=== PATIENT | female | born 1955 | race Caucasian/White ===

== ENCOUNTER → 2016-09-04 | Day surgery (SDC) | payer OTHER ==
[2016-08-27 07:48] VITALS: Ht 172.7 cm; Wt 68.2 kg
[~2016-09-04] VITALS: Ht 172.7 cm; Wt 68.2 kg
[~2016-09-04] MED LIST: 500ML BSS 0.3ML EPI 1:1000PF IRRIG ONE; ACETAMINOPHEN 325 MG TAB PO PRN; AMVISC PLUS 0.8ML SYRINGE INT OCU ONE; ATROPINE SULFATE 0.1 MG/ML 5ML SYR IV PRN; AcetaZOLAMIDE 250 MG TAB ONE; BETAXOLOL HCL 0.25% OP SUSP PER DROP CHARGE OPL SCH; BRIMONIDINE TART 0.2% OP SOLN PER DROP CHARGE ONE; BSS FLUSH ONE; CHOL20007 PO; DICL-201 PO; DICLOFENAC GEL TOP; EFF50 PO; ENDOCOAT 0.85ML SYRINGE INT OCU ONE; EpHEDrine SULFATE INJ 50 MG/ML AMP IV PRN; EpINEphrine INJ 1MG/ML AMP 1 MG/ML AMP ONE; FENTANYL CITRATE INJ 50 MCG/1 ML 2 ML VIAL IV PRN; FLUMAZENIL 0.1 MG/1 ML 10 ML VIAL IV PRN; HYDROmorphone INJ 2 MG/ML SYR/VIAL IV PRN; IBUP-1427 PO; LABETALOL HCL IV 5 MG/ML 20ML IV PRN; LACTATED RINGER'S 1000ML 500 ML IV SCH; LIDOCAINE 4% OP SOLN DROP CHARGE ONE; LIDOCAINE 4% OP SOLN DROP CHARGE OPL SCH; LIDOCAINE HCL 1% MPF 2 ML VIAL ONE; LUTE15CA PO; MEPERIDINE HCL 25 MG/ML CARP IV PRN; MIDAZOLAM HCL 1 MG/ML 2ML VIAL ONE; MIX: 4ML BSS 1ML EPI 1:1000 PF INSTIL ONE; MOXIFLOXACIN OPH SOLN PER DROP CHARGE ONE; MULTTAB58 PO; NALOXONE HCL 0.4 MG/1 ML VIAL/CARP IV PRN; OCUCOAT 1 ML SOLN IO ONE; ONDANSETRON INJ 2 MG/ML 2 ML VIAL IV PRN; OXYC-57 PO; PHENYLEPHRINE 100MCG/ML 5ML SYR IV PRN; POVIDONE-IODINE OP SOLN 30 ML BTL ONE; PRED1SUS3 OPL; PROPARACAINE 0.5% OP SOLN PER DROP CHARGE OPL SCH; RIZA10TA18 PO; TOBRAMYCIN/DEXAMETHASONE OPH OINT PER APPLN CHARGE ONE; VITAMIN B12 PO
--- NOTE | 2016-09-04 10:50 | History & Physical Bridge - [place] ---
H&P Re-Evaluation Bridge Note: I have examined the patient, reviewed the History & Physical and in the interval since the performance of the History & Physical I have noted the following changes of clinical significance: No changes noted
[2016-09-04] MEDS: PHENYLEPHRINE HCL 2.5% OP SOLN PER DROP CHARGE OPL SCH ×2 (11:02→11:07)
[2016-09-04] MEDS: TROPICAMIDE 1% OP SOLN PER DROP CHARGE OPL SCH ×2 (11:03→11:08)
[2016-09-04] MEDS: CYCLOPENTOLATE HCL 1% OP SOLN PER DROP CHARGE OPL SCH ×2 (11:04→11:09)
[2016-09-04] MEDS: MOXIFLOXACIN OPH SOLN PER DROP CHARGE OPL SCH ×2 (11:05→11:15)
--- NOTE | 2016-09-04 11:59 | Discharge Instructions-SurgCtr ---
Discharge Instructions Date of Service Sep 04, 2016. Visit Reason for Visit: Cataract Left Eye Discharge Discharge Diagnosis / Problem: lens implant left eye Discharge Goals Goal(s): Improve function Activity Recommendations Activity Limitations: resume your previous activity Lifting Limitations: no more than 10 pounds Exercise/Sports Limitations: gradually increase as tolerated May Resume Sexual Activity: when tolerated Shower/Bathe: tomorrow Driving or Machine Use: resume 1 day after discharge Anesthesia . Post Anesthesia Instructions: If you have had General Anesthesia or IV Sedation: * Do not drive today. * Resume driving when surgeon permits. * Do not make important decisions or sign legal documents today. * Call surgeon for: 1. Temperature elevations greater than 101 degrees F. 2. Uncontrollable pain. 3. Excessive bleeding. 4. Persistent nausea and vomiting. 5. Medication intolerance (nausea, vomiting or rash). * For nausea and vomiting use only clear liquids such as: tea, soda, bouillon until nausea subsides, then gradually increase diet as tolerated. * If you have any concerns or questions, call your surgeon's office. If physician is unavailable and it is an emergency, call 911 or go to the nearest emergency room. . Instructions / Follow-Up Instructions / Follow-Up ACTIVITY RECOMMENDATIONS: * Light activities. * Mild irritation and blurred vision are common for the first few days. * You may walk outside, read, watch television. * Redness around the white part of the eye is common. MEDICATIONS: Resume previous medications unless instructed otherwise by your surgeon. Start all eye drops at 3 pm today: * Eye drops (today and tomorrow): Prednisone - one drop in operative eye every 3 hours while awake Ofloxacin - one drop in operative eye every 3 hours while awake Ilevro - one drop in operative eye once a day SPECIAL CARE INSTRUCTIONS: * Tape plastic shield over eye to sleep at night. Call your doctor at with any concerns or problems. FOLLOW UP VISIT: Follow-up with Dr Pelletier at [place] office as scheduled. Diet Recommendations Home Diet: no limitations Procedures Procedures Performed: cataract extraction with lens implant Pending Studies Studies pending at discharge: no Medical Emergencies . Who to Call and When: Medical Emergencies: If at any time you feel your situation is an emergency, please call 911 immediately. . Non-Emergent Contact Non-Emergency issues call your: Patient Care Technician Instructor Call Non-Emergent contact if: your pain is not controlled [phone] . . "Provider Documentation" section prepared by Charly Pelletier.
--- NOTE | 2016-09-04 12:02 | [facility] Operative Report ---
Operative Report Date of Service Sep 04, 2016. Operative Report 1. PREOPERATIVE DIAGNOSIS: Pre Senile Posterior Subcapsular Cataract, left eye. 2. POSTOPERATIVE DIAGNOSIS: Pre Senile Posterior Subcapsular Cataract, left eye. 3. PROCEDURE: Phacoemulsification of left cataract with posterior chamber lens implant, type [employer]ausch [employer] Lomb, model MX60, power +17.5 diopters. ANESTHESIA: Local standby. SURGEON: Dr. Pelletier. COMPLICATIONS: None. OPERATING TIME: 10 minutes. 4. OPERATION AND FINDINGS: DESCRIPTION OF PROCEDURE: The left pupil was dilated. The anesthetic was administered using a topical technique. The left eye was prepped and draped. A speculum was placed. A clear corneal incision was formed. The chamber was filled with Amvisc Plus and Endocoat. Epinephrine solution was used. A paracentesis was placed. A capsulorrhexis was performed. The nucleus was hydrodissected. The lens was removed with phacoemulsification. Time was 3.80 seconds. The aspiration unit was used to remove the cortex. The capsule was filled with Amvisc Plus. The lens implant was folded and placed into the capsule. The incision was hydrated. The Amvisc was aspirated. The wound was secure. The chamber was deep. The pupil was round. Brimonidine, TobraDex ointment and Vigamox solution were placed. The speculum was removed. The patient was returned to the Recovery Room in stable condition. I attest to the content of the Intraoperative Record and any orders documented therein. Any exceptions are noted below. The scribe's documentation has been prepared in my presence, under my direction and personally reviewed by me in its entirety. I confirm that the note above accurately reflects all work, treatment, procedures, and medical decision making performed by me. I personally scribed for Charly Pelletier M.D. ([email or web address]) on 09/04/16 at 12:02. Electronically submitted by Grisel FISCHER).
[2016-09-04 12:03] VITALS: TEMP 36.5
--- NOTE | 2016-09-04 12:14 | Anesthesia Progress Nt - [facility] ---
Anesthesia Post Op Note Date & Time Sep 04, 2016 at 12:13 Vital Signs Pain Intensity: 0 Vital Signs Past 12 Hours Date Time Temp Pulse Resp B/P Pulse Ox O2 Delivery O2 Flow Rate FiO2 09/04/16 12:03 36.5 70 16 126/64 96 Room Air 09/04/16 10:56 37.0 80 18 126/79 96 Room Air Notes Mental Status: alert / awake / arousable, participated in evaluation Pt Amnestic to Procedure: Yes Nausea / Vomiting: adequately controlled Pain: adequately controlled Airway Patency, RR, SpO2: stable & adequate BP & HR: stable & adequate Hydration State: stable & adequate Anesthetic Complications: no major complications apparent
[2016-09-04 12:25] VITALS: BP 119/57; PULSE 74; O2SAT 98
== END | disposition home or self-care (01) ==
LOC: X.SURG 10:39
PROVIDERS: ATTEND Specialist
DX: H26.8 Other specified cataract (principal)

== ENCOUNTER → 2016-09-25 | Day surgery (SDC) | payer OTHER ==
[2016-09-24 07:34] VITALS: Ht 172.7 cm; Wt 68.2 kg
[~2016-09-25] VITALS: Ht 172.7 cm; Wt 68.2 kg
[~2016-09-25] MED LIST changes: -AcetaZOLAMIDE 250 MG TAB ONE; -BETAXOLOL HCL 0.25% OP SUSP PER DROP CHARGE OPL SCH; +BETAXOLOL HCL 0.25% OP SUSP PER DROP CHARGE OPR SCH; -ENDOCOAT 0.85ML SYRINGE INT OCU ONE; -FENTANYL CITRATE INJ 50 MCG/1 ML 2 ML VIAL IV PRN; +FENTANYL CITRATE INJ 50 MCG/1 ML 2 ML VIAL ONE; -FLUMAZENIL 0.1 MG/1 ML 10 ML VIAL IV PRN; -HYDROmorphone INJ 2 MG/ML SYR/VIAL IV PRN; -LABETALOL HCL IV 5 MG/ML 20ML IV PRN; -LIDOCAINE 4% OP SOLN DROP CHARGE OPL SCH; +LIDOCAINE 4% OP SOLN DROP CHARGE OPR SCH; -MEPERIDINE HCL 25 MG/ML CARP IV PRN; -NALOXONE HCL 0.4 MG/1 ML VIAL/CARP IV PRN; -ONDANSETRON INJ 2 MG/ML 2 ML VIAL IV PRN; -PHENYLEPHRINE 100MCG/ML 5ML SYR IV PRN; -PROPARACAINE 0.5% OP SOLN PER DROP CHARGE OPL SCH; +PROPARACAINE 0.5% OP SOLN PER DROP CHARGE OPR SCH; +VISCOAT 0.5ML SYRINGE INT OCU ONE
[2016-09-25] MEDS: PHENYLEPHRINE HCL 2.5% OP SOLN PER DROP CHARGE OPR SCH ×2 (06:32→06:38)
[2016-09-25] MEDS: TROPICAMIDE 1% OP SOLN PER DROP CHARGE OPR SCH ×2 (06:33→06:39)
[2016-09-25] MEDS: CYCLOPENTOLATE HCL 1% OP SOLN PER DROP CHARGE OPR SCH ×2 (06:34→06:40)
[2016-09-25] MEDS: MOXIFLOXACIN OPH SOLN PER DROP CHARGE OPR SCH ×2 (06:35→06:45)
--- NOTE | 2016-09-25 07:11 | Discharge Instructions-SurgCtr ---
Discharge Instructions Date of Service September 25, 2016. Visit Reason for Visit: Cataract Right Eye Discharge Discharge Diagnosis / Problem: lens implant right eye Discharge Goals Goal(s): Improve function Activity Recommendations Activity Limitations: resume your previous activity Lifting Limitations: no more than 10 pounds Exercise/Sports Limitations: gradually increase as tolerated May Resume Sexual Activity: when tolerated Shower/Bathe: tomorrow Driving or Machine Use: resume 1 day after discharge Anesthesia . Post Anesthesia Instructions: If you have had General Anesthesia or IV Sedation: * Do not drive today. * Resume driving when surgeon permits. * Do not make important decisions or sign legal documents today. * Call surgeon for: 1. Temperature elevations greater than 101 degrees F. 2. Uncontrollable pain. 3. Excessive bleeding. 4. Persistent nausea and vomiting. 5. Medication intolerance (nausea, vomiting or rash). * For nausea and vomiting use only clear liquids such as: tea, soda, bouillon until nausea subsides, then gradually increase diet as tolerated. * If you have any concerns or questions, call your surgeon's office. If physician is unavailable and it is an emergency, call 911 or go to the nearest emergency room. . Instructions / Follow-Up Instructions / Follow-Up ACTIVITY RECOMMENDATIONS: * Light activities. * Mild irritation and blurred vision are common for the first few days. * You may walk outside, read, watch television. * Redness around the white part of the eye is common. MEDICATIONS: Resume previous medications unless instructed otherwise by your surgeon. Start all eye drops at 1 pm today: * Eye drops (today and tomorrow): Prednisone - one drop in operative eye every 3 hours while awake Ofloxacin - one drop in operative eye every 3 hours while awake SPECIAL CARE INSTRUCTIONS: * Tape plastic shield over eye to sleep at night. Call your doctor at with any concerns or problems. FOLLOW UP VISIT: Follow-up with Dr Pelletier at [place] office as scheduled. Diet Recommendations Home Diet: no limitations Procedures Procedures Performed: Right Cataract Phacoemulsification With Intraocular Lens Implant Pending Studies Studies pending at discharge: no Medical Emergencies . Who to Call and When: Medical Emergencies: If at any time you feel your situation is an emergency, please call 911 immediately. . Non-Emergent Contact Non-Emergency issues call your: Guide Changer Call Non-Emergent contact if: your pain is not controlled [phone] . . "Provider Documentation" section prepared by Charly Pelletier. .
--- NOTE | 2016-09-25 07:13 | [facility] Operative Report ---
Operative Report Date of Service September 25, 2016. Operative Report 1. PREOPERATIVE DIAGNOSIS: Pre Senile nuclear cataract, right eye. 2. POSTOPERATIVE DIAGNOSIS: Pre Senile nuclear cataract, right eye. 3. PROCEDURE: Phacoemulsification of right cataract with posterior chamber lens implant, type Bausch [employer] Lomb, model MX60, power +17.5 diopters. ANESTHESIA: Local standby. SURGEON: Dr. Pelletier. COMPLICATIONS: None. OPERATING TIME: 10 minutes. 4. OPERATION AND FINDINGS: DESCRIPTION OF PROCEDURE: The right pupil was dilated. The anesthetic was administered using a topical technique. The right eye was prepped and draped. A speculum was placed. A clear corneal incision was formed. The chamber was filled with Amvisc Plus and Viscoat. Epinephrine solution was used. A paracentesis was placed. A capsulorrhexis was performed. The nucleus was hydrodissected. The lens was removed with phacoemulsification. Time was 2.06 seconds. The aspiration unit was used to remove the cortex. The capsule was filled with Amvisc Plus. The lens implant was folded and placed into the capsule. The incision was hydrated. The Amvisc was aspirated. The wound was secure. The chamber was deep. The pupil was round. Brimonidine, TobraDex ointment and Vigamox solution were placed. The speculum was removed. The patient was returned to the Recovery Room in stable condition. I attest to the content of the Intraoperative Record and any orders documented therein. Any exceptions are noted below. The scribe's documentation has been prepared in my presence, under my direction and personally reviewed by me in its entirety. I confirm that the note above accurately reflects all work, treatment, procedures, and medical decision making performed by me. I personally scribed for Charly Pelletier M.D. ([email or web address]) on 09/25/16 at 07:13. Electronically submitted by Grisel Marquez ([email or web address]).
[2016-09-25 07:15] VITALS: TEMP 37.7
[2016-09-25 07:40] VITALS: BP 125/78; PULSE 79; O2SAT 100
--- NOTE | 2016-09-25 07:40 | Anesthesia Progress Nt - [facility] ---
Anesthesia Post Op Note Date & Time September 25, 2016 at 07:40 Vital Signs Pain Intensity: 0 Vital Signs Past 12 Hours Date Time Temp Pulse Resp B/P Pulse Ox O2 Delivery O2 Flow Rate FiO2 09/25/16 07:15 37.7 75 12 125/79 100 Room Air 09/25/16 06:26 36.6 77 16 128/76 97 Room Air Notes Mental Status: alert / awake / arousable, participated in evaluation Pt Amnestic to Procedure: Yes Nausea / Vomiting: adequately controlled Pain: adequately controlled Airway Patency, RR, SpO2: stable & adequate BP & HR: stable & adequate Hydration State: stable & adequate Anesthetic Complications: no major complications apparent
== END | disposition home or self-care (01) ==
LOC: X.SURG 06:18
PROVIDERS: ATTEND Specialist
DX: H26.8 Other specified cataract (principal)

== ENCOUNTER → 2016-12-30 | Outpatient (CLI) | payer OTHER ==
[~2016-12-30] MED LIST changes: -500ML BSS 0.3ML EPI 1:1000PF IRRIG ONE; -ACETAMINOPHEN 325 MG TAB PO PRN; -AMVISC PLUS 0.8ML SYRINGE INT OCU ONE; -ATROPINE SULFATE 0.1 MG/ML 5ML SYR IV PRN; -BETAXOLOL HCL 0.25% OP SUSP PER DROP CHARGE OPR SCH; -BRIMONIDINE TART 0.2% OP SOLN PER DROP CHARGE ONE; -BSS FLUSH ONE; -EpHEDrine SULFATE INJ 50 MG/ML AMP IV PRN; -EpINEphrine INJ 1MG/ML AMP 1 MG/ML AMP ONE; -FENTANYL CITRATE INJ 50 MCG/1 ML 2 ML VIAL ONE; -LACTATED RINGER'S 1000ML 500 ML IV SCH; -LIDOCAINE 4% OP SOLN DROP CHARGE ONE; -LIDOCAINE 4% OP SOLN DROP CHARGE OPR SCH; -LIDOCAINE HCL 1% MPF 2 ML VIAL ONE; -MIDAZOLAM HCL 1 MG/ML 2ML VIAL ONE; -MIX: 4ML BSS 1ML EPI 1:1000 PF INSTIL ONE; -MOXIFLOXACIN OPH SOLN PER DROP CHARGE ONE; -OCUCOAT 1 ML SOLN IO ONE; -POVIDONE-IODINE OP SOLN 30 ML BTL ONE; -PRED1SUS3 OPL; -PROPARACAINE 0.5% OP SOLN PER DROP CHARGE OPR SCH; -TOBRAMYCIN/DEXAMETHASONE OPH OINT PER APPLN CHARGE ONE; -VISCOAT 0.5ML SYRINGE INT OCU ONE
[2016-12-30 18:37] LABS: BLOOD UREA NITROGEN 14 mg/dl (7-18); BUN/CREATININE RATIO 16.1 (10-20); CALCIUM 9.9 mg/dl (8.5-10.1); CARBON DIOXIDE 32 mmol/L (21-32); CHLORIDE 106 mmol/L (98-107); CREATININE 0.89 mg/dl (0.60-1.20); GLUCOSE 99 mg/dl (70-99); SODIUM 141 mmol/L (136-145)
== END | disposition home or self-care (01) ==
LOC: C.LABPVFM 16:14
PROVIDERS: ATTEND Obstetrics & Gynecology
DX: E87.5 Hyperkalemia (principal)

== ENCOUNTER → 2017-01-02 | Outpatient (CLI) | payer OTHER ==
[2017-01-02 17:18] LABS: RHEUMATOID FACTOR < 10.0 U/mL (0-15); TOTAL IRON BINDING CAPACITY 348 mcg/dl (250-450)
--- NOTE | 2017-01-02 17:27 | DIAGNOSTIC IMAGING REPORT ---
RIGHT HAND MIN 3 VIEWS ROUTINE CLINICAL HISTORY: Right hand pain. Tenosynovitis. COMPARISON: None. DISCUSSION: There is mild periarticular osteopenia. No acute fractures are visualized. There are no erosive changes. There is sclerosis involving the distal phalanx of the fourth finger. The patient appears be status post a trapezium resection. IMPRESSION: 1. Apparent postsurgical changes of a trapezium resection 2. Mild degenerative spurring at the base the first metacarpal 3. No acute fractures 4. No erosive disease 5. Mild periarticular osteopenia Electronically signed by: Raymundo Augustin M.D. 01/02/2017 5:26 PM Dictated Date/Time: 01/02/2017 5:24 PM
--- NOTE | 2017-01-02 17:28 | DIAGNOSTIC IMAGING REPORT ---
LEFT HAND MIN 3 VIEWS ROUTINE CLINICAL HISTORY: Tenosynovitis. Left hand pain COMPARISON: None. DISCUSSION: There is mild particular osteopenia. No acute fractures are visualized. There is no erosive disease. There are degenerative changes most pronounced the level the first carpal metacarpal joint. Degenerative changes are also present within the distal radial ulnar joint. IMPRESSION: 1. No acute fractures 2. No erosive disease 3. Degenerative changes within the first carpometacarpal joint, and distal radioulnar joint. Electronically signed by: Raymundo Augustin M.D. 01/02/2017 5:27 PM Dictated Date/Time: 01/02/2017 5:26 PM
[2017-01-02 17:40] LABS: URINE APPEARANCE CLEAR (CLEAR); URINE BILIRUBIN NEG (NEG); URINE EPITHELIAL CELL AUTO 0-5 /lpf (0-5); URINE NITRITE NEG (NEG); URINE PH 5.5 (4.5-7.5); URINE SPECIFIC GRAVITY 1.014 (1.000-1.030); UROBILINOGEN NEG (NEG)
[2017-01-02 17:42] LABS: MANUAL MICROSCOPIC REQUIRED? NO; REVIEW REQ? NO; URINE COLOR N
--- NOTE | 2017-01-02 18:28 | DIAGNOSTIC IMAGING REPORT ---
SI JOINTS 3 OR MORE VIEWS CLINICAL HISTORY: ARTHRAIGIA OF BACK COMPARISON STUDY: No previous studies for comparison. FINDINGS: There is no evidence of SI joint fusion. There are no erosive changes to indicate an inflammatory sacroiliitis. There are mild degenerative type changes. No fractures are visualized. IMPRESSION: Mild degenerative change. No conventional radiographic evidence of an inflammatory sacroiliitis Electronically signed by: Raymundo Augustin M.D. 01/02/2017 6:26 PM Dictated Date/Time: 01/02/2017 5:22 PM
[2017-01-08 04:51] LABS: ANTI-CENTROMERE AB <1.0 NEG AI (<1.0 NEG); ANTI-SS-A <1.0 NEG AI (<1.0 NEG); ANTI-SS-B <1.0 NEG AI (<1.0 NEG); DNA ds CRITHIDIA NEGATIVE (NEGATIVE); HLA-B27** TC 528X NEGATIVE (NEGATIVE); PARVOVIRUS IgG INDEX 5.2 (<0.9); PARVOVIRUS IgM INDEX 0.2 (<0.9); Sm Antibody <1.0 NEG AI (<1.0 NEG)
== END | disposition home or self-care (01) ==
LOC: C.RAD1850 15:58
PROVIDERS: ATTEND Internal Medicine Rheumatology
DX: M54.9 Dorsalgia, unspecified (principal); M65.9 Synovitis and tenosynovitis, unspecified; M66.9 Spontaneous rupture of unspecified tendon

== ENCOUNTER 2017-01-10 05:22 | Observation (INO) | payer OTHER ==
[2016-12-26 15:25] VITALS: BMI 23.0
[2016-12-26 15:50] LABS: BASO % 0.4 %; BASO ABS # 0.02 K/uL (0-0.2); COMPLETE YES; EOS % 3.3 %; HEMATOCRIT 41.5 % (37-47); LYMPH % 39.1 %; MEAN PLATELET VOLUME 9.9 fL (7.4-10.4); NEUT % 50.2 %; PLATELET COUNT 227 K/uL (130-400); RED BLOOD COUNT 4.28 M/uL (4.2-5.4); WHITE BLOOD COUNT 5.12 K/uL (4.8-10.8)
--- NOTE | 2016-12-26 15:52 | PAT Medication Instructions ---
Service Date Dec 26, 2016. Current Home Medication List Cholecalciferol (Vitamin D3), 1 TAB PO QAM Diclofenac (Voltaren), 75 MG PO BID PRN for Pain Ibuprofen Tab (Motrin), 600 MG PO Q6H PRN for Pain Lutein-Zeaxanthin (Lutein), 1 CAP PO QAM Multiple Vitamin (Multivitamin), 1 TAB PO QAM Rizatriptan Benzoate (Maxalt), 10 MG PO PRN Venlafaxine Hcl (Effexor *), 75 MG PO QAM [Diclofenac Gel ], 1 APPLN TOP UD PRN for JOINT PAIN [Vitamin B12], 1 TAB PO QAM Medication Instructions For Your Scheduled Surgery - Check with surgeon for instructions: Diclofenac (Voltaren), 75 MG PO BID PRN for Pain Ibuprofen Tab (Motrin), 600 MG PO Q6H PRN for Pain - Hold the following medications 24 hours prior to surgery: [Diclofenac Gel ], 1 APPLN TOP UD PRN for JOINT PAIN - Hold the following medications the morning of surgery: [Vitamin B12], 1 TAB PO QAM Multiple Vitamin (Multivitamin), 1 TAB PO QAM Cholecalciferol (Vitamin D3), 1 TAB PO QAM Lutein-Zeaxanthin (Lutein), 1 CAP PO QAM - Take the following medications the morning of surgery with a sip of water: Venlafaxine Hcl (Effexor *), 75 MG PO QAM Rizatriptan Benzoate (Maxalt), 10 MG PO PRN (if needed) - Take the following medications as scheduled the night before surgery: Rizatriptan Benzoate (Maxalt), 10 MG PO PRN (if needed) If you have any questions please call us at [phone] or [phone] or [phone]
[2016-12-26 15:58] LABS: BUN/CREATININE RATIO 12.6 (10-20); CALCIUM 9.7 mg/dl (8.5-10.1); CREATININE 0.93 mg/dl (0.60-1.20); POTASSIUM 5.4 mmol/L (3.5-5.1)
[2017-01-10] VITALS (8 sets, daily range): BP systolic 118–169; BP diastolic 57–74; PULSE 67–92; TEMP 36.4–36.7; O2SAT 88–100; Ht 172.7 cm; Wt 68.1 kg
[~2017-01-10] VITALS: Ht 172.7 cm; Wt 68.1 kg
[~2017-01-10 05:22] MED LIST changes: -OXYC-57 PO
[2017-01-10] MEDS ORDERED: CEFAZOLIN 2000 MG/60 ML D5W IV SCH (06:00)
[2017-01-10] MEDS ORDERED: LACTATED RINGER'S 1000ML 1,000 ML IV SCH ×3 (06:00→09:37)
[2017-01-10] MEDS ORDERED: METHYLENE BLUE 0.5% 10 ML VIAL ONE (06:55)
[2017-01-10] MEDS ORDERED: BUPIVACAINE 0.5 % 5 MG/1 ML MPF 30ML VIAL ONE (06:55)
[2017-01-10] MEDS ORDERED: ONDANSETRON INJ 2 MG/ML 2 ML VIAL ONE (07:03)
[2017-01-10] MEDS ORDERED: ROCURONIUM BROMIDE 10 MG/ML 5 ML VIAL ONE (07:03)
[2017-01-10] MEDS ORDERED: LIDOCAINE HCL 2% 2 ML VIAL (20MG/ML) ONE (07:03)
[2017-01-10] MEDS ORDERED: PROPOFOL IV EMULSION 10 MG/ML 20 ML VIAL IV ONE (07:03)
[2017-01-10] MEDS ORDERED: NEOSTIGMINE METHYLSULFATE 5 MG/5 ML SYR ONE (07:03)
[2017-01-10] MEDS ORDERED: MIDAZOLAM HCL 1 MG/ML 2ML VIAL ONE (07:03)
[2017-01-10] MEDS ORDERED: GLYCOPYRROLATE INJ 0.2 MG/ML VIAL ONE (07:03)
[2017-01-10] MEDS ORDERED: FENTANYL CITRATE INJ 50 MCG/1 ML 2 ML VIAL ONE (07:03)
[2017-01-10] MEDS ORDERED: DEXAMETHASONE SOD INJ 4 MG/ML VIAL ONE (07:03)
[2017-01-10] MEDS ORDERED: PHENYLEPHRINE 100MCG/ML 5ML SYR IV PRN (07:30)
[2017-01-10] MEDS ORDERED: EpHEDrine SULFATE INJ 50 MG/ML AMP IV PRN (07:30)
[2017-01-10] MEDS ORDERED: ATROPINE SULFATE 0.1 MG/ML 5ML SYR IV PRN (07:30)
[2017-01-10] MEDS ORDERED: ONDANSETRON INJ 2 MG/ML 2 ML VIAL IV PRN ×2 (07:30→09:45)
[2017-01-10] MEDS ORDERED: HYDROmorphone INJ 2 MG/ML SYR/VIAL ONE (08:08)
[2017-01-10] MEDS ORDERED: SURGICEL ABSORB HEMOSTAT 2IN X 14IN TOP ONE (08:55)
[2017-01-10] MEDS: HYDROmorphone INJ 2 MG/ML SYR/VIAL IV PRN ×4 (09:38→10:02)
[2017-01-10] MEDS ORDERED: SIMETHICONE 80 MG CHEW PO PRN (09:45)
[2017-01-10] MEDS ORDERED: ACETAMINOPHEN 325 MG TAB PO PRN (09:45)
[2017-01-10] MEDS ORDERED: KETOROLAC TROMETHAMINE 30 MG/ML VIAL IV. PRN (09:45)
[2017-01-10] MEDS ORDERED: IBUPROFEN 600 MG TAB PO PRN (09:45)
[2017-01-10] MEDS ORDERED: OXYCODONE/ACETAMINOPHEN 5-325 TAB PO PRN ×2 (09:45)
--- NOTE | 2017-01-10 09:48 | [facility] Post Operative Brief Note ---
Immediate Operative Summary Operative Date Jan 10, 2017. Pre-Operative Diagnosis Postmenopausal bleeding, bilateral ovarian cysts, cervical stenosis Post-Operative Diagnosis Same as preop Procedure(s) Performed Total Laparoscopic Hysterectomy Bilateral Salpingoophrectomy, Robot Assist; Cystoscopy Surgeon Dr. Hughes [employer] Consultant Surgeon(s) RN Estimated Blood Loss 25 ml Findings uterus small, evidence of bowel adhesions, mostly epiplocae , left ovary adhesed to this area slightly, right ovary normal and mobile. alot of peritoneal adhesions in cul[place]. nl liver edge, gb Fluids (cc crystalloids) 1000 Specimens A. Uterus, Cervix, Bilaterial ovaries and fallopian tubes. Drains carmona Anesthesia general Complication(s) None Disposition Recovery Room / PACU
[2017-01-10] MEDS ORDERED: OXYC-57 PO (09:59)
--- NOTE | 2017-01-10 10:01 | Discharge Instructions ---
Discharge Instructions Date of Service Jan 10, 2017. Admission Reason for Admission: Bilateral Ovarian Cysts, Post-Menopausal Bleeding Discharge Discharge Diagnosis / Problem: after surgery Discharge Goals Goal(s): Routine recovery after surgery Activity Recommendations Activity Limitations: as noted below . Instructions / Follow-Up Instructions / Follow-Up POST OPERATIVE: BOWEL FUNCTION/MEDICATIONS: 1. Constipation pain and discomfort are the most common complaints 5-7 days after surgery. Points 2-6 address the things that can help. 2. Chewing gum can help stimulate the gut and help improve digestion and motility. 3. Milk of Magnesia 1-2 times per day until return of bowel function. 4. Colace is a stool softener that helps. Taking this 2-3 times per day until bowel function returns to normal is highly recommended. 5. Dulcolax is a laxative that may be used if several days have passed without a bowel movement. Alternatively Miralax may be used daily instead. 6. Drink plenty of fluids as this will also reduce constipation. 7. Narcotic pain medications will be prescribed by your physician. They are safe to use and we encourage you to use them. If you are not allergic, ibuprofen will also be prescribed. Many patients will be able to transition off of the narcotic medications to ibuprofen by postoperative day 3. ACTIVITY RECOMMENDATIONS: 1. Get plenty of rest and listen to your body. If you are tired, take a nap. 2. You may shower, but do not take a tub bath until you see your doctor at the 2 week post operative visit. 3. Absolutely NO intercourse and nothing in the vagina until you are examined by your doctor at the 8 week visit. At that visit it will be determined when such activities can be resumed. This can range from 6-12 weeks after your surgery depending on healing time. 4. The main physical activity in the first week should be walking. By the second week you can slowly increase activity. There are no limits on walking up and down stairs. 5. Do not lift more than 5-10 lbs for 4 weeks. Remember the "one-handed rule", i.e. if you can lift something with only one hand it's likely okay. 6. Minimize computer engineer like vacuuming and exercising for 4 weeks. "Overdoing it" can lead to incisions not healing, pain and vaginal bleeding , so again, listen to your body. 7. Driving can be resumed when you feel able. Do not drive within 24 hours of taking a narcotic medication. EXPECTATIONS: 1. Vaginal spotting, bleeding and discharge are common after surgery. There may even be an odor to the discharge which is often related to sutures used in the vagina. If you experience heavy vaginal bleeding, call the office number day or night [phone]. 2. Bladder discomfort is common after surgery from the catheter. This usually resolves in 1-2 weeks. 3. By the end of the 3rd or 4th week you should be feeling much better. It may take up to 6 weeks for your energy levels to return to normal. 4. Narcotic medications have side effects such as: dizziness, headache, nausea and/or vomiting. If you suspect your pain medication is causing problems, call our office and we may be able to prescribe an alternate medication. 5. The skin incisions are often covered with a liquid bandage. This will gradually peel off over time. CALL THE OFFICE IF YOU HAVE ANY OF THE FOLLOWIN. Temperature of 101 degrees or higher. 2. Severe abdominal or pelvic pain not relieved by pain medication. 3. Persistent nausea or vomiting. 4. Increased pain with urination or difficulty urinating. 5. Bright red bleeding that soaks more than 1 pad per hour. CONTACT PHONE NUMBERS: Main Office: [phone] Surgical Nurse: [phone] extension [phone] FOLLOW-UP: Post-Operative Appointments: * Individual instructions will have been given about the timing of your first examination, but this is usually at the end of the second week home. * You will need to call the office at soon after discharge to make the appointment for your post-op check-up if it has not already been scheduled. * Additional information regarding activity, sexual intercourse and when to return to work will be given at this appointment. WE WISH YOU A SPEEDY RECOVERY! Current Hospital Diet Patient's current hospital diet: Discharge Diet Recommended Diet: Regular Diet Procedures Procedures Performed: Total Laparoscopic Hysterectomy Bilateral Salpingoophrectomy, Robot Assist; Cystoscopy Pending Studies Studies pending at discharge: yes List of pending studies: pathology Medical Emergencies . Who to Call and When: Medical Emergencies: If at any time you feel your situation is an emergency, please call 911 immediately. . Non-Emergent Contact Non-Emergency issues call your: Optometric Aide . . "Provider Documentation" section prepared by Inocencia Hughes. . VTE Core Measure Inpt VTE Proph given/why not?: Treatment not indicated [place] Drug Monitoring Program Search Results: patient reviewed within database, no issues identified
--- NOTE | 2017-01-10 10:24 | Anesthesiology Progress Note ---
Anesthesia Post Op Note Date & Time Jan 10, 2017 at 10:22 Vital Signs Pain Intensity: 3 Vital Signs Past 12 Hours Date Time Temp Pulse Resp B/P (MAP) Pulse Ox O2 Delivery O2 Flow Rate FiO2 01/10/17 10:20 133/40 01/10/17 10:16 60 10 98 01/10/17 10:16 61 10 01/10/17 10:15 131/63 01/10/17 10:13 36.7 69 16 131/63 (76) 98 Nasal Cannula 2 Mask 01/10/17 10:11 78 14 98 01/10/17 10:11 78 14 01/10/17 10:06 81 20 01/10/17 10:06 81 20 98 01/10/17 10:05 137/59 01/10/17 10:03 76 16 01/10/17 10:03 80 16 99 01/10/17 10:00 145/74 01/10/17 09:58 69 8 98 01/10/17 09:58 69 8 01/10/17 09:56 125/93 01/10/17 09:53 58 10 98 01/10/17 09:53 58 10 01/10/17 09:51 102/92 01/10/17 09:48 61 8 01/10/17 09:48 60 8 100 01/10/17 09:47 69 12 99 01/10/17 09:47 69 12 01/10/17 09:45 156/63 01/10/17 09:42 63 13 01/10/17 09:42 63 13 100 01/10/17 09:41 146/80 01/10/17 09:37 60 13 01/10/17 09:37 60 13 100 01/10/17 09:35 147/81 01/10/17 09:32 82 17 01/10/17 09:32 82 17 100 01/10/17 09:31 152/95 01/10/17 09:27 9 01/10/17 09:27 83 9 167/90 01/10/17 09:27 36.6 81 14 167/90 100 Mask 10 01/10/17 05:44 36.7 79 18 141/57 (85) 99 Room Air Notes Mental Status: alert / awake / arousable, participated in evaluation Pt Amnestic to Procedure: Yes Nausea / Vomiting: adequately controlled Pain: adequately controlled Airway Patency, RR, SpO2: stable & adequate BP & HR: stable & adequate Hydration State: stable & adequate Anesthetic Complications: no major complications apparent The patient was a difficult glidescope intubation due to very anteriorly placed vocal cords. A difficult airway form was filled out and given to the patient for future surgeries.
--- NOTE | 2017-01-10 10:34 | OPERATIVE REPORT ---
DATE OF OPERATION: 01/10/2017 PREOPERATIVE DIAGNOSES: 1. Bilateral ovarian cysts. 2. Postmenopausal bleeding. 3. Cervical stenosis. POSTOPERATIVE DIAGNOSES: 1. same 2. Pelvic peritoneal adhesions. PROCEDURES: 1. Total laparoscopic hysterectomy. 2. Lysis of adhesions. 3. Bilateral salpingo-oophorectomy. 4. Cystoscopy. 5. Robotic assistance. SURGEON: Dr. Inocencia Hughes. PHYSICIAN COMPENSATION ANALYST: RN. IV FLUIDS: 1000 mL. ESTIMATED BLOOD LOSS: 25 mL. URINE OUTPUT: 200 mL. ANESTHESIA: General. FINDINGS: Uterus small. Cervix was stenotic. VCare cup did perforate at the fundus. This still allowed for uterine manipulation. The right ovary mobile and normal appearing. Left ovary adhesed in the lower left pelvis along with epiploica to the uterosacral ligament. Epiploica adhesed to the ovary on that side. A peritoneal window noted in the cul-de-sac. Normal liver edge and gallbladder. Cystoscopy findings with normal bladder filling and normal evidence of ureteral jets. No sutures in the bladder. INDICATIONS: A 61-year-old with a history of persistent bilateral ovarian cysts that varied in their appearance as well as their size over the course of a year of following. She also ended up complaining of postmenopausal bleeding; however, her cervix was stenotic and could not allow for evaluation of the cavity in the office setting. Given all of this, the patient was uncomfortable with remaining undiagnosed issues in her pelvis and desired definitive hysterectomy with bilateral salpingo-oophorectomy. She was aware of her alternatives and desired to proceed. DESCRIPTION OF PROCEDURE: The patient was taken to the operating room and identified. After adequate general anesthesia was obtained, she was placed in dorsal lithotomy position and prepped and draped in the usual sterile fashion. Attention was turned to the patient's vagina, where a Gonzalez catheter was placed under sterile conditions. A weighted speculum and anterior retractor were placed to visualize the cervix, which was grasped in its anterior lip at first and then on its posterior lip as the cervix was quite anterior. The cervix was sequentially dilated using Hegar dilators to 23. Single interrupted stitch of #0 Vicryl was placed at 3 o'clock position. The VCare uterine manipulator was gently placed through the cervical os into the uterine cavity and the balloon was inflated; however, some concern was for possible perforation. The cup was tied down and stabilized in the usual fashion and the instruments removed vaginally. Attention was turned to the patient's abdomen, where an infraumbilical skin incision was made with a scalpel. The Veress needle was placed intraperitoneally with an opening pressure of 3 mmHg. A CO2 pneumoperitoneum was created. The patient was placed in steep Trendelenburg. The pelvis was inspected with the findings as noted above. The VCare cup clearly had perforated, but it was at the fundus. There was no evidence of any other injury in the pelvis. Two da Leo trocar sites left and right of the midline were created by first creating skin incisions and then placing under direct visualization da Leo trocars. A left upper quadrant health center assistant port was created in a similar fashion and an 11- mm trocar was placed there. This was after the 12-mm trocar had been introduced optically and a 10-mm laparoscope with camera had been placed. At this point, all the instruments were removed and da Leo was brought to the patient's bedside. Appropriate instrument arms were attached to the appropriate trocars. The camera was introduced and the bipolar cautery as well as monopolar cristine were brought through the instrument arm #2 and #1 respectively and the surgeon went to the console. The ureters were seen coursing well away from the planned operative field. The adhesions of the sigmoid epiploica and the ovary to that area were addressed at first. This required sharp and blunt dissection with care to not injure the bowel. Once the tissue was completely mobilized away from the planned operative sites, the ovary was completely mobilized from adhesions as well. Attention was turned to the patient's right infundibulopelvic ligament. That was cauterized in multiple passes and then transected. The round ligament was then cauterized and transected. The broad ligament attachments of the this complex were further cauterized and transected. The anterior and posterior leaves of the broad ligament were opened up into. The bladder flap was begun from the right heading towards the midline. The uterine artery pedicle was skeletonized on this side. The pedicle was then cauterized. Attention was then turned to the left infundibulopelvic ligament, which was cauterized and transected. The round ligament was also cauterized and transected and the remaining tissue of this complex was further cauterized and transected. The broad ligament leaves were opened up on this side. The bladder flap was begun from the left and met to the right. The bladder was reflected well away from the planned operative site anteriorly. Uterine artery pedicle on the left side was skeletonized. It was then cauterized and transected. The cardinal ligament attachments were further taken down. This allowed for complete mobilization of the planned colpotomy site on the left side. Attention was returned to the right uterine artery pedicles, which were recauterized and transected and the cardinal ligament attachments were cauterized and transected. All tissue was cleared away from the planned colpotomy site and it was then incised in a circumferential fashion following the VCare cup using the monopolar cristine. The specimen was completely transected and brought out vaginally. A sponge was replaced to allow for maintenance of the pneumoperitoneum. Through the #1 instrument arm, a large needle regional driver was placed. A 2-0 V-Loc 90 suture was introduced through the health center assistant port. The cuff was then closed in the usual fashion using the suture material and back stitches were placed in the usual fashion. There was concern about administrating methylene blue given the patient's medication history and therefore, cystoscopy took place and the bladder was well visualized and normal. It filled normally and urine was seen coursing from the ureteral orifices easily. At this point, the cystoscopy was terminated. A new Gonzalez catheter was placed. The CO2 pneumoperitoneum that had been let down was redistended. The operative sites were inspected. Small oozing was cauterized; however, due to the raw edges, a piece of Surgicel was placed across the vaginal cuff and the suture lines. At this point, the procedure was terminated. All trocars were removed. The CO2 gas had been allowed to escape from the patient's abdomen. The fascia at the umbilicus was reapproximated with a single interrupted suture of 0 Vicryl. The skin incisions were all closed with 4-0 Vicryl in a subcuticular fashion. Marcaine had been injected at the incision sites. They were also dressed with Dermabond. The patient was returned to supine position. She was awoken from anesthesia and transferred to the recovery room in stable condition. All sponge, lap and needle counts were correct x2. I attest to the content of the Intraoperative Record and any orders documented therein. Any exceptions are noted below. DILMA
[2017-01-10] MEDS ORDERED: IV FLUIDS COMPLETED PRN (11:30)
[2017-01-10] MEDS ORDERED: DOCUSATE SODIUM 100 MG CAP PO SCH (21:00)
--- NOTE | 2017-01-15 10:55 | Discharge Summary ---
Discharge Summary Date of Service Dec. Discharged Jan 10, 2017 Discharge Summary Admission diagnoses: persistent bilateral ovarian cysts, postmenopausal bleeding , cervical stenosis. Discharge diagnoses: same, pelvic peritoneal adhesions Procedures: Total Laparoscopic Hysterectomy, Bilateral Salpingoophectomy, Lysis of adhesions, Robotic assistance, Cystoscopy. Brief History and Hospital Course: 61yo admitted for history of persistent bilateral ovarian cysts that had been followed for >6m who desires surgical management. She also had postmenopausal bleeding and could not have office endometrial biopsy due to cervical stenosis. She desired surgical management. She underwent the above stated procedures without incident. She had an estimated blood less of 25cc. Her postoperative recovery was uncomplicated and later that day she was tolerating a diet, voiding and ambulating with pain well controlled on oral medications. She was discharged to home. She was give pain medicine prescription and discharge instructions. She was to followup in office in 2 weeks.
== END 2017-01-10 16:00 | disposition home or self-care (01) ==
LOC: C.ACU 05:22 → C.MS4N 05:30 → ENRESERV 10:04
PROVIDERS: ADMIT Obstetrics & Gynecology; ATTEND Obstetrics & Gynecology
DX: D28.2 Benign neoplasm of uterine tubes and ligaments (principal); D27.0 Benign neoplasm of right ovary; N83.201 Unspecified ovarian cyst, right side; N83.202 Unspecified ovarian cyst, left side; N95.0 Postmenopausal bleeding; N88.2 Stricture and stenosis of cervix uteri
CPT/HCPCS: 58571; 58740; S2900

== ENCOUNTER → 2017-03-06 | Outpatient (CLI) | payer OTHER ==
[~2017-03-06] MED LIST changes: +OXYC-57 PO
[2017-03-06 15:50] LABS: MANUAL MICROSCOPIC REQUIRED? NO; REVIEW REQ? NO; URINE APPEARANCE CLEAR (CLEAR); URINE BILIRUBIN NEG (NEG); URINE COLOR YELLOW; URINE NITRITE NEG (NEG); URINE SPECIFIC GRAVITY 1.018 (1.000-1.030); UROBILINOGEN NEG (NEG)
== END | disposition home or self-care (01) ==
LOC: C.LABSPEC 15:18
PROVIDERS: ATTEND Obstetrics & Gynecology
DX: R39.9 Unspecified symptoms and signs involving the genitourinary system (principal)

== ENCOUNTER → 2017-08-27 | Outpatient (CLI) | payer OTHER ==
[2017-08-27 16:29] LABS: BASO % 0.4 %; BASO ABS # 0.02 K/uL (0-0.2); EOS % 3.2 %; EOS ABS # 0.17 K/uL (0-0.5); HEMOGLOBIN 13.3 g/dL (12.0-16.0); LYMPH % 33.3 %; LYMPH ABS # 1.78 K/uL (1.2-3.4); MEAN CELL VOLUME 96.4 fL (80-100); MEAN CORPUSCULAR HGB CONC 33.3 g/dl (32-36); MEAN PLATELET VOLUME 10.2 fL (7.4-10.4); MONO % 7.1 %; MONO ABS # 0.38 K/uL (0.11-0.59); NEUT ABS # 2.99 K/uL (1.4-6.5); PLATELET COUNT 223 K/uL (130-400); RED CELL DISTRIBUTION WIDTH SD 45.5 fL (36.4-46.3); WHITE BLOOD COUNT 5.34 K/uL (4.8-10.8)
[2017-08-27 16:57] LABS: ALBUMIN 4.1 gm/dl (3.4-5.0); ALT/SGPT 40 U/L (12-78); AST/SGOT 25 U/L (15-37); CREATININE 0.76 mg/dl (0.60-1.20)
[2017-08-27 16:59] LABS: ALKALINE PHOSPHATASE 85 U/L (45-117); TOTAL PROTEIN 7.3 gm/dl (6.4-8.2)
== END | disposition home or self-care (01) ==
LOC: C.LAB1850 15:29
PROVIDERS: ATTEND Internal Medicine Rheumatology
DX: Z79.899 Other long term (current) drug therapy (principal)

== ENCOUNTER 2021-10-22 13:47 | Observation (INO) ==
[2021-10-22] MEDS ORDERED: ASPIRIN CHEW 324 MG PO STA (14:08)
[2021-10-22] MEDS ORDERED: METOPROLOL TARTRATE 1 MG/ML VIAL IV STA (14:08)
[2021-10-22] MEDS ORDERED: HEPARIN SOD (PORCINE) 1000 UNIT/ML ONE (14:09)
[2021-10-22] MEDS ORDERED: METOPROLOL TARTRATE 1 MG/ML VIAL IV ONE (14:10)
[2021-10-22] MEDS ORDERED: TICAGRELOR 90 MG TAB ONE (14:10)
--- NOTE | 2021-10-22 14:12 | Emergency Department Note ---
Impression & Plan ST elevation NC (STEMI), Chest pain ED Provider Note NAME: ASHLEY BHANDARI AGE: 66 SEX: F : 1955 ARRIVES VIA: Walk-In INFORMANT: Patient ED PROVIDER(S): Josh Short DO CHIEF COMPLAINT: chest pain HPI: Patient is a 66-year-old female with past medical history of thyroid disorder, anaplasmosis who presents to the ER from chest pain. This started and was exertional while she was cleaning up in the yard. She describes the pain as starting in her left arm and jaw pain. She does have shortness of breath with it. It has been improving. Currently a 4 out of 10. She is never had this before. She denies any headache or change in vision. No belly pain nausea vomiting or diarrhea. No dysuria urgency or frequency. No other exacerbating or remitting factors. ROS: See above HPI for pertinent positives & negatives. A total of 10 systems reviewed and were otherwise negative. PAST MEDICAL HISTORY:See Below PAST SURGICAL HISTORY:See Below FAMILY HISTORY:See Below SOCIAL HISTORY:See Below HOME MEDICATIONS:See Below ALLERGIES:See Below VITALS:See Below PHYSICAL EXAMINATION: GENERAL: Sitting up in bed, alert, slightly diaphoretic, mild distress EYE EXAM: normal conjunctiva. PERRL and EOM's grossly intact. OROPHARYNX: no exudate, no erythema, lips, buccal mucosa, and tongue normal and mucous membranes are moist NECK: supple, no nuchal rigidity, no adenopathy, non-tender LUNGS: Clear to auscultation. Normal chest wall mechanics HEART: no murmurs, S1 normal and S2 normal ABDOMEN: abdomen soft, non-tender, normo-active bowel sounds, no masses, no rebound or guarding. UPPER EXTREMITIES: upper extremities are grossly normal. LOWER EXTREMITIES: No pitting edema. NEURO EXAM: Normal sensorium, cranial nerves II-XII grossly intact, normal speech, no gross weakness of arms, no gross weakness of legs. MEDICAL DECISION MAKING: Patient is a 66-year-old female who presents the ER for left upper chest wall pain arm pain and jaw pain. She does have some shortness of breath associated with this. This occurred with exertion. IV was established blood work was obtained. EKG was reviewed and showed a STEMI. A STEMI alert was immediately called. Patient was given aspirin, nitro and Lopressor as her heart rate was up to the 90s. Interventional cardiology presented to bedside and took the patient emergently to the Audio Production Instructor. Patient was also given 4000 units of heparin as well while in the ER prior to transfer to Audio Production Instructor. Labs which resulted later showed no significant leukocytosis or anemia. BMP all along with LFTs were unremarkable with exception of slightly elevated blood sugar at 112. Troponin was elevated at 360. Triage Nursing notes reviewed. Limited review of prior medical records performed Vital Signs: reviewed and remarkable for HTN and tachy Differential diagnosis: Differential diagnoses includes but is not limited to acute coronary syndrome, myocardial infarction, pericarditis, pulmonary embolus, aortic dissection, pneumonia, pneumothorax, musculoskeletal, shingles, esophageal. ER treatment provided: See below Diagnostics interpreted by me: ECG: Sinus rhythm rate of [address] elevations in the inferior leads as well as V4 through V6 with ST depressions and T wave inversion in V1 as well as aVL and aVR. Cardiac Monitoring: An order was placed for continuous cardiac monitoring. The monitor shows a rate of 80 with sinus rhythm. Laboratory studies: As stated above and show below. Imaging studies: Portable AP upright 1 view of the chest shows no focal infiltrate or pneumothorax Consultation(s): Interventional cardiology was consulted and patient was taken emergently to the OR Procedures: none Critical Care: I have personally spent 33 minutes of critical care time in the direct management of this patient. This includes bedside care, interpretation of diagnostic studies, and testing, discussion with consultants, patient, and family members, and other required patient management activities. This 33 minutes is in excess of all separately billable procedures. Past Med/Surg History Medical History Abdominal pain Anxiety Bilateral ovarian cysts Enteritis H/O thyroid cyst Postmenopausal bleeding Thyroid nodule Wrist pain, left Surgical History H/O bilateral breast implants H/O dilation and curettage H/O sinus surgery History of bilateral mastectomy History of eye surgery History of fusion of cervical spine History of gynecologic surgery History of gynecologic surgery History of hand surgery History of hysterectomy History of knee surgery History of LAVH History of removal of cyst S/P endometrial ablation S/P tonsillectomy S/P tooth extraction Family History Grandfather (Maternal) Myocardial infarction Mother Lung cancer Denies family history of Ovarian cancer Prostate cancer Breast cancer Colorectal cancer Social History (Updated 09/24/21 @ 09:51 by Crystal Puckett LPN) Smoking Status: Never smoker Second Hand Exposure: No; Hx Alcohol Use: Yes Alcohol type: beer Hx Substance Use: No Preferred Language: Telugu Communication Ability: Effective Hearing Ability: Hard of Hearing Fish Cleaner Machine Tender Required: No Beliefs That Will Affect Care: None marital status: Current Living Situation: Spouse current occupational status: employed 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 How many Children do You have: 1 Other Information That Helps Us Care for You: No Feels Safe at Home: Yes Safety Concerns: Feels Safe At This Time Childhood Exposure to Second-Hand Smoke: Yes caffeine: Yes Dental Care, Regularly: Yes Physical Activity Frequency: Daily Seatbelt Use: always Sunscreen Use: Yes Assistive Devices: None Allergies Allergies Allergy/AdvReac Type Severity Reaction Status Date / Time Penicillins Allergy Unknown PT NOT Verified 10/22/21 14:50 SURE, THINKS RASH Sulfa (Sulfonamide Allergy Unknown PT NOT Verified 10/22/21 14:50 Antibiotics) SURE, THINKS RASH Home Meds Home Medications Medication Instructions Recorded Confirmed mesalamine 800 mg tablet,delayed 1,600 mg PO DAILY 10/22/21 10/22/21 release omega 3-dha and epa 476 mg-fish 1 cap PO DAILY 10/22/21 10/22/21 oil 800 mg capsule (MegaRed Advanced 6x Absorption) Previous Rx's Medication Instructions Recorded venlafaxine 75 mg capsule,extended 75 mg PO DAILY #90 cap 04/26/21 release 24 hr diclofenac sodium 75 mg 75 mg PO BID PRN #180 tab 05/21/21 tablet,delayed release rizatriptan 10 mg disintegrating 10 mg PO Q2H PRN #30 tab 09/11/21 tablet (Maxalt-RADIO TIME BUYER) venlafaxine 37.5 mg 37.5 mg PO DAILY #30 cap 09/24/21 capsule,extended release 24 hr (Effexor XR) Results & Data (ED) Vital Signs Vital Signs - 24 hr 10/22/21 13:50 10/22/21 13:53 10/22/21 14:09 Temperature 36.3 C L 36.4 C L Temperature Source Oral Oral Pulse Rate 76 Pulse Rate [Right Finger] 87 Pulse Rhythm Regular Pulse Rhythm [Right Finger] Regular Pulse Strength Normal Pulse Strength [Right Finger] Normal Respiratory Rate 18 20 20 Respiratory Effort / Characteristics Non-Labored Spontaneous Non-Labored Respiratory Depth Normal Normal Respiratory Pattern Regular Regular Blood Pressure 165/81 H Blood Pressure [Right Arm] 112/75 163/97 H Blood Pressure Mean 109 Blood Pressure Mean [Right Arm] 87 119 Blood Pressure Position [Right Arm] Lying Pulse Oximetry 95 99 93 Oxygen Delivery Method Room Air Room Air Room Air Sepsis New/Unexplained Change in Mental Status N/A Sepsis Action Taken by Nursing No Action Required 10/22/21 14:15 10/22/21 14:22 10/22/21 14:36 Temperature Temperature Source Pulse Rate 90 69 Pulse Rate [Right Finger] Pulse Rhythm Pulse Rhythm [Right Finger] Pulse Strength Pulse Strength [Right Finger] Respiratory Rate Respiratory Effort / Characteristics Respiratory Depth Respiratory Pattern Blood Pressure 163/97 H Blood Pressure [Right Arm] 172/96 H Blood Pressure Mean Blood Pressure Mean [Right Arm] 121 Blood Pressure Position [Right Arm] Pulse Oximetry 98 Oxygen Delivery Method Room Air Sepsis New/Unexplained Change in Mental Status Sepsis Action Taken by Nursing 10/22/21 15:46 10/22/21 15:50 Temperature 36.4 C L Temperature Source Oral Pulse Rate 70 Pulse Rate [Right Finger] 87 Pulse Rhythm Pulse Rhythm [Right Finger] Regular Pulse Strength Pulse Strength [Right Finger] Normal Respiratory Rate 16 Respiratory Effort / Characteristics Non-Labored Spontaneous Respiratory Depth Normal Respiratory Pattern Blood Pressure Blood Pressure [Right Arm] 112/75 Blood Pressure Mean Blood Pressure Mean [Right Arm] 87 Blood Pressure Position [Right Arm] Semi-fowlers Pulse Oximetry 95 Oxygen Delivery Method Room Air Sepsis New/Unexplained Change in Mental Status Sepsis Action Taken by Nursing Laboratory Data Result diagrams: 10/22/21 14:13 10/22/21 14:13 Lab Results 10/22/21 10/22/21 10/22/21 Range/Units 12:30 14:13 14:13 WBC 6.85 (4.8-10.8) K/uL RBC 4.28 (4.2-5.4) M/uL Hgb 13.8 (12.0-16.0) g/dL Hct 41.2 (37-47) % MCV 96.3 (80-100) fL MCH 32.2 (25-34) pg MCHC 33.5 (32-36) g/dL RDW Std Deviation 45.9 (36.4-46.3) fL RDW Coeff of Inderjit 13.2 (11.5-14.5) % Plt Count 266 (130-400) K/uL MPV 10.1 (7.4-10.4) fL Immature Gran % (Auto) 0.3 % Neut % (Auto) 65.4 % Lymph % (Auto) 23.5 % [place] % (Auto) 7.9 % Eos % (Auto) 2.6 % Baso % (Auto) 0.3 % Neut # (Auto) 4.48 (1.4-6.5) K/uL Lymph # (Auto) 1.61 (1.2-3.4) K/uL [place] # (Auto) 0.54 (0.11-0.59) K/uL Eos # (Auto) 0.18 (0-0.5) K/uL Baso # (Auto) 0.02 (0-0.2) K/uL Immature Gran # (Auto) 0.02 (0.00-0.02) K/uL Sodium (136-145) mmol/L Potassium (3.5-5.1) mmol/L Chloride (98-107) mmol/L Carbon Dioxide (21-32) mmol/L Anion Gap (3-11) BUN (6-23) mg/dl Creatinine (0.6-1.2) mg/dl Est Cr Clr Drug Dosing ml/min Est GFR ( Amer) ml/min Est GFR (Non-Af Amer) ml/min BUN/Creatinine Ratio (10-20) Glucose (70-99(Fasting)) mg/dl Calcium (8.5-10.1) mg/dl Total Bilirubin (0.2-1.0) mg/dl AST (13-39) U/L ALT (7-52) U/L Alkaline Phosphatase (34-104) U/L Troponin I High Sens 360.4 H* (0-14) pg/ml Total Protein (6.0-8.3) gm/dl Albumin (3.4-5.0) gm/dl Globulin (2.5-4.0) gm/dl Albumin/Globulin Ratio (0.9-2) Lipase (11-82) U/L SARS-CoV-2, RNA, NAAT NEGATIVE (NEGATIVE) 10/22/21 Range/Units 14:13 WBC (4.8-10.8) K/uL RBC (4.2-5.4) M/uL Hgb (12.0-16.0) g/dL Hct (37-47) % MCV (80-100) fL MCH (25-34) pg MCHC (32-36) g/dL RDW Std Deviation (36.4-46.3) fL RDW Coeff of Inderjit (11.5-14.5) % Plt Count (130-400) K/uL MPV (7.4-10.4) fL Immature Gran % (Auto) % Neut % (Auto) % Lymph % (Auto) % [place] % (Auto) % Eos % (Auto) % Baso % (Auto) % Neut # (Auto) (1.4-6.5) K/uL Lymph # (Auto) (1.2-3.4) K/uL [place] # (Auto) (0.11-0.59) K/uL Eos # (Auto) (0-0.5) K/uL Baso # (Auto) (0-0.2) K/uL Immature Gran # (Auto) (0.00-0.02) K/uL Sodium 141 (136-145) mmol/L Potassium 3.7 (3.5-5.1) mmol/L Chloride 106 (98-107) mmol/L Carbon Dioxide 26 (21-32) mmol/L Anion Gap 9 (3-11) BUN 16 (6-23) mg/dl Creatinine 0.91 (0.6-1.2) mg/dl Est Cr Clr Drug Dosing 62.2 ml/min Est GFR ( Amer) 76.7 ml/min Est GFR (Non-Af Amer) 66.2 ml/min BUN/Creatinine Ratio 17.6 (10-20) Glucose 112 H (70-99(Fasting)) mg/dl Calcium 9.6 (8.5-10.1) mg/dl Total Bilirubin 1.0 (0.2-1.0) mg/dl AST 17 (13-39) U/L ALT 13 (7-52) U/L Alkaline Phosphatase 77 (34-104) U/L Troponin I High Sens (0-14) pg/ml Total Protein 7.1 (6.0-8.3) gm/dl Albumin 4.6 (3.4-5.0) gm/dl Globulin 2.5 (2.5-4.0) gm/dl Albumin/Globulin Ratio 1.8 (0.9-2) Lipase 16 (11-82) U/L SARS-CoV-2, RNA, NAAT (NEGATIVE) Administered Medications Sodium Chloride (Nss) 500 mls @ 80 mls/hr IV .Q6H15M [facility] Stop: 10/22/21 22:59 Last Admin: 10/22/21 17:08 Dose: 80 mls/hr Documented by: [id number] Lisinopril (Lisinopril 2.5 Mg Tab) 2.5 mg PO QAM [facility] Stop: 11/21/21 16:29 Last Admin: 10/22/21 17:08 Dose: Not Given Documented by: [id number] Discontinued Medications Aspirin (Aspirin Chew 324 Mg) 324 mg PO NOW [facility] Stop: 10/22/21 14:09 Last Admin: 10/22/21 14:15 Dose: 324 mg Documented by: [id number] Eptifibatide (Eptifibatide 2 Mg/Ml 10 Ml Vial (Audio Production Instructor Use Only)) Confirm Administered Dose 40 mg IV .STK-MED ONE Stop: 10/22/21 14:48 Last Admin: 10/22/21 15:23 Dose: Not Given Documented by: [id number] Eptifibatide (Eptifibatide 0.75 Mg/Ml 75mg Vial (Audio Production Instructor Use Only)) Confirm Administered Dose 75 mg .ROUTE .STK-MED ONE Stop: 10/22/21 14:48 Last Admin: 10/22/21 15:23 Dose: Not Given Documented by: [id number] Fentanyl Citrate (Fentanyl Citrate 100 Mcg/2 Ml Vial) Confirm Administered Dose 100 mcg .ROUTE .STK-MED ONE Stop: 10/22/21 14:30 Last Admin: 10/22/21 15:22 Dose: 50 mcg Documented by: [id number] Heparin Sodium (Porcine) (Heparin Sod (Porcine) 1000 Unit/Ml) Confirm Administered Dose 1,000 units .ROUTE .STK-MED ONE Stop: 10/22/21 14:10 Last Admin: 10/22/21 15:20 Dose: 7,000 units Documented by: [id number] Cosigned by: [id number] Heparin Sodium (Porcine) (Heparin (Porcine) 1000 Unit/Ml 10 Ml (Audio Production Instructor Use Only)) Confirm Administered Dose 10,000 units .ROUTE .STK-MED ONE Stop: 10/22/21 14:30 Last Admin: 10/22/21 16:13 Dose: Not Given Documented by: [id number] Heparin Sodium/Sodium Chloride (Heparin In Nss Infusion 1000 Unit/500 Ml (2 U/Ml) Bag) Confirm Administered Dose 3,000 units IV .[facility] ONE Stop: 10/22/21 14:30 Last Admin: 10/22/21 15:22 Dose: 3,000 units Documented by: [id number] Metoprolol Tartrate (Metoprolol Tartrate 1 Mg/Ml Vial) Confirm Administered Dose 5 mg IV .[facility] Stop: 10/22/21 14:11 Last Admin: 10/22/21 14:29 Dose: Not Given Documented by: [id number] Metoprolol Tartrate (Metoprolol Tartrate 25 Mg Tab) [facility] Stop: 11/21/21 15:59 Last Admin: 10/22/21 18:28 Dose: Not Given Documented by: [id number] Midazolam HCl (Midazolam Hcl 1 Mg/Ml 2ml Vial) Confirm Administered Dose 2 mg . ROUTE .[facility]-MED ONE Stop: 10/22/21 14:29 Last Admin: 10/22/21 15:22 Dose: 1 mg Documented by: [id number] Nicardipine HCl (Nicardipine Hcl Inj 2.5 Mg/Ml 10 Ml Amp) Confirm Administered Dose 25 mg .ROUTE .[employer] ONE Stop: 10/22/21 14:30 Last Admin: 10/22/21 15:22 Dose: 25 mg Documented by: [id number] Nitroglycerin (Nitroglycerin Sl 0.4 Mg/Tab Tab) Confirm Administered Dose 0.4 mg .ROUTE .[employer]-MED ONE Stop: 10/22/21 14:26 Last Admin: 10/22/21 14:29 Dose: 0.4 mg Documented by: [id number] Nitroglycerin/Dextrose (Nitroglycerin/D5w 100mcg/Ml 20ml Syr) Confirm Administered Dose 2,000 mcg .ROUTE .[employer] ONE Stop: 10/22/21 14:30 Last Admin: 10/22/21 15:23 Dose: 2,000 mcg Documented by: [id number] Ticagrelor (Ticagrelor 90 Mg Tab) Confirm Administered Dose 180 mg .ROUTE .STK- MED ONE Stop: 10/22/21 14:11 Last Admin: 10/22/21 15:22 Dose: Not Given Documented by: [id number] Imaging Data Radiologist's Impression: Chest X-Ray 10/22/21 14:08 XR chest 1V portable CLINICAL HISTORY: Atypical chest pain TECHNIQUE: Single frontal radiograph of the chest was obtained. Comparison: Comparison is made to chest radiograph 11/20/2015 FINDINGS: No lines and tubes are seen. Calcified aortic knob is seen. The lungs are clear. Bilateral chest wall surgical clips are seen. IMPRESSION: No acute chest disease. ACT 112: Negative or not required by law. Electronically signed by: Danie Gamez M.D. 10/22/2021 3:09 PM Discharge Plan Visit Data Chief Complaint: Cardiac Assessment Stated Complaint: L CHEST PAIN, L ARM NUMB, NECK PAIN ED Provider: Josh Short Discharge Problem: ST elevation NC (STEMI), Chest pain Patient Disposition: Admitted As Inpatient Discharge Instructions Interventions: ED Discharge Assessment Last Done: 10/22/21 14:46 Discharge Problem: ST elevation NC (STEMI) Qualifiers: Involved coronary artery: unspecified coronary artery Qualified Code(s): I21.3 - ST elevation (STEMI) myocardial infarction of unspecified site Chest pain Qualifiers: Chest pain type: unspecified Qualified Code(s): R07.9 - Chest pain, unspecified
[2021-10-22] MEDS ORDERED: NITROGLYCERIN SL 0.4 MG/TAB TAB ONE (14:25)
[2021-10-22 14:28] LABS: Basophils # (auto) 0.02 K/uL (0-0.2); Basophils % (auto) 0.3 %; Eosinophils # (auto) 0.18 K/uL (0-0.5); Eosinophils % (auto) 2.6 %; Hematocrit (blood only) 41.2 % (37-47); Hemoglobin 13.8 g/dL (12.0-16.0); Immature Granulocytes # (auto) 0.02 K/uL (0.00-0.02); Immature Granulocytes % (auto) 0.3 %; Lymphocytes # (auto) 1.61 K/uL (1.2-3.4); Lymphocytes % (auto) 23.5 %; Mean Corpuscular Hemoglobin 32.2 pg (25-34); Mean Corpuscular Hgb Conc 33.5 g/dL (32-36); Mean Corpuscular Volume 96.3 fL (80-100); Mean Platelet Volume 10.1 fL (7.4-10.4); Monocytes # (auto) 0.54 K/uL (0.11-0.59); Monocytes % (auto) 7.9 %; Neutrophils # (auto) 4.48 K/uL (1.4-6.5); Neutrophils % (auto) 65.4 %; Platelet Count 266 K/uL (130-400); RDW Coefficient of Variation 13.2 % (11.5-14.5); RDW Standard Deviation 45.9 fL (36.4-46.3); Red Blood Count 4.28 M/uL (4.2-5.4); White Blood Count 6.85 K/uL (4.8-10.8)
[2021-10-22] MEDS ORDERED: MIDAZOLAM HCL 1 MG/ML 2ML VIAL ONE (14:28)
[2021-10-22] MEDS ORDERED: NITROGLYCERIN/D5W 100MCG/ML 20ML SYR ONE (14:29)
[2021-10-22] MEDS ORDERED: fentaNYL citrate 100 MCG/2 ML VIAL ONE (14:29)
[2021-10-22] MEDS ORDERED: niCARdipine HCL INJ 2.5 MG/ML 10 ML AMP ONE (14:29)
[2021-10-22] MEDS ORDERED: HEPARIN (PORCINE) 1000 UNIT/ML 10 ML (CATH LAB USE ONLY) ONE (14:29)
[2021-10-22] MEDS ORDERED: EPTIFIBATIDE 2 MG/ML 10 ML VIAL (CATH LAB USE ONLY) IV ONE (14:47)
[2021-10-22] MEDS ORDERED: EPTIFIBATIDE 0.75 MG/ML 75MG VIAL (CATH LAB USE ONLY) ONE (14:47)
[2021-10-22 14:53] LABS: Albumin Globulin Ratio 1.8 (0.9-2); Albumin Level 4.6 gm/dl (3.4-5.0); BUN Creatinine Ratio 17.6 (10-20); Calcium 9.6 mg/dl (8.5-10.1); Creatinine Clr Calc Pharmacy 62.2 ml/min; Est GFR (African American) 76.7 ml/min; Est GFR (Non-African American) 66.2 ml/min; Globulin 2.5 gm/dl (2.5-4.0); Potassium 3.7 mmol/L (3.5-5.1); Total Protein 7.1 gm/dl (6.0-8.3)
--- NOTE | 2021-10-22 15:10 | XRay Report ---
XR chest 1V portable CLINICAL HISTORY: Atypical chest pain TECHNIQUE: Single frontal radiograph of the chest was obtained. Comparison: Comparison is made to chest radiograph 11/20/2015 FINDINGS: No lines and tubes are seen. Calcified aortic knob is seen. The lungs are clear. Bilateral chest wall surgical clips are seen. IMPRESSION: No acute chest disease. ACT 112: Negative or not required by law. Electronically signed by: Danie Gamez M.D. 10/22/2021 3:09 PM
--- NOTE | 2021-10-22 15:30 | Post Anesthesia Assessment ---
Date of Service October 22, 2021 Post Sedation Assessment Vital Signs Temp Pulse Resp BP BP Pulse Ox 10/22/21 14:36 69 98 10/22/21 14:22 172/96 H 10/22/21 14:15 90 163/97 H 10/22/21 14:09 20 163/97 H 93 10/22/21 13:53 36.4 C L 76 20 165/81 H 99 Recovery Score Activity: Moves 4 extremities Discharge Sedation Level of Care: Phase I Post Sedation Plan On clinical assessment, the patient appears to have tolerated the sedation without complications. Patient is recovering as anticipated. Patient will continue to be monitored by nursing and may be discharged when sedation discharge criteria are met per below protocol. Upon Completions of procedure up to 15 minutes continue every 5 minute vital signs and the P.A.R. score; then discharge to a Phase I or Fast Track to Phase II per the following guidelines: * Discharge Patient to appropriate Phase II area if PAR is 8 or greater or return to pre- procedure baseline. The post - procedure orders will be as directed. * If PAR score is less than 8 or not return to pre-procedure baseline then patient will follow Phase I monitoring till PAR is reached for Phase II. The Phase I may be done in procedure room or may call to secure a Phase I area. * If naloxone or flumazenil are used for reversal, hold in Phase I for cont inued monitoring from when last reversal dose was given for a minimum of 60 minutes or longer pending the nurse and/or physician discretion of patient condition before discharge to Phase II. Please call the Sedation Physician to re-evaluate and complete post-note for discharge to Phase II area. Do NOT discharge from procedure sedation or Phase 1 until post- sedation evaluation note is complete by procedure /sedation MD Sedation Discharge Instructions to be given to the patient at discharge to home.
--- NOTE | 2021-10-22 15:30 | Pre Anesthesia Assessment ---
Date of Service October 22, 2021 Pre Sedation Assessment Vital Signs Temp Pulse Resp BP BP Pulse Ox 10/22/21 14:36 69 98 10/22/21 14:22 172/96 H 10/22/21 14:15 90 163/97 H 10/22/21 14:09 20 163/97 H 93 10/22/21 13:53 36.4 C L 76 20 165/81 H 99 Cardiovascular RRR, no murmur, no edema Respiratory normal respiratory effort, lungs clear to auscultation Pre-Sedation Airway Assessment Smoking Status: Never smoker Hx Sleep Apnea: No Hx Difficult Intubation: No Short, Thick Neck: No Mallampati Class: II ASA: ASA3 Notes The planned sedation has been discussed with the patient. Informed Consent was obtained. I have identified the patient, determined the appropriateness of sedation and have assessed the patient immediately prior to the procedure. All medicine(s) and interventions are by my order.
[2021-10-22] MEDS ORDERED: ACETAMINOPHEN 325 MG TAB PO PRN (15:46)
[2021-10-22] MEDS ORDERED: NITROGLYCERIN SL 0.4 MG/TAB TAB SL PRN (15:46)
--- NOTE | 2021-10-22 15:46 | Cardiac Catheterization ---
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 Cardiac Status Clinical evaluation leading to the procedure CAD Presenation: STEMI Anginal Classification: CCS III Heart Failure: No Cardiogenic Shock within 24 Hours: No Cardiac Arrest within 24 Hours: No Imaging Studies Past 6 Months: No Stress Studies Past 6 Months: No Standard Exercise Test: No Stress Echocardiogram: No Stress Testing w/SPECT MPI: No Cardiac CTA: No STEMI OR Non-STEMI Symptom Onset Date: 10/22/21 Symptom Onset Time: 14:00 Thrombolytics: No Coronary Anatomy Dominant: Right Left Main (% Stenosis): Normal LAD (% Stenosis): Normal D1 (% Stenosis): Normal D2 (% Stenosis): Normal D3 (% Stenosis): Normal Circumflex (% Stenosis): Normal OM1 (% Stenosis): Normal OM2 (% Stenosis): Normal OM3 (% Stenosis): Normal L PL1 (% Stenosis): Normal L PL2 (% Stenosis): Normal L PDA (% Stenosis): Normal RCA (% Stenosis): Normal R PDA (% Stenosis): Normal R PL1 (% Stenosis): Normal R PL2 (% Stenosis): Normal AM (% Stenosis): Normal Left Ventricular Angiography EF (%): 30 Wall Motion: Anterior and Apical Mitral Regurgitation: 1+ Aortography Aortic Regurgitation: None Diagnostic Physicians Name: Von Fabian MD Status: Emergency Closure Device Percutaneous Entry Location: Radial Closure Device: Radial Band Recommendations: Medical Therapy and/or Counseling (Lifestyle modifications, may consider betablocker) First Noted: First EKG Intraprocedure Events Significant Disection: No Perforation: No Cardiac Cath Procedure Full Procedure Date October 22, 2021 Pre-Procedure Diagnosis Pre-Procedure Diagnosis: Acute Coronary Syndrome AUC Score AUC Score: 9 Post-Procedure Diagnosis Post-Procedure Diagnosis: Normal Coronary Arteries, Decreased LV Systolic Function (Stress-related (Takotsubo) Cardiomyopathy) and Elevated Intracardiac Pressures Procedure(s) Performed Procedure(s) Performed: Coronary Angiography, Left Heart Cath and Ultrasound Guided Vascular Access Class A Regional Truck Driver Von Fabian MD Estimated Blood Loss Estimated Blood Loss: Minimal Medication(s) Medication(s): Nicardipine Summary of Findings Hamel time out was performed in standard fashion. Access was obtained with Seldinger technique. A Jackson catheter was advanced over an 0.035" J-wire and positioned into the Left coronary cusp. Angiography was obtained in orthogonal projections. The catheter was redirected to the Right Coronary ostium and angiography was obtained in orthogonal projections. A pigtail catheter was advanced into the Left Ventricle and EDP was measured. A power injection was obtained in TIDWELL projection. Findings: - Normal Coronary arteries - Elevated LVEDP 23 mmHg - Depressed LVEF 30-35% with alexsandra-apical akinesis suggestive of Takotsubo Cardiomyopathy Hemodynamics Rest Ao:: 134/69/126 mmHg Final Ao: 142/74/105 LV: 144/23 Recommendations Recommendations: Medical Therapy and/or Counseling (Lifestyle modifications, may consider betablocker) Specimens Specimens: None Radiation Exposure (mGy) 276 mGy; Fluorotime: 5.1 minutes; DAP 29.22 cGycm2 Contrast (mls) 100 Fluids (cc crystalloids) Fluids (cc crystalloids): 75 Anesthesia 1 mg Versed, 50 mcg Fentanyl Disposition PCU I attest to the content of the Intraoperative Record and any orders documented therein. Any exceptions are noted below. [facility] Card Cath Procedure Codes Cardiac Catheterization Procedure 1: Cardiovascular Cath Procedures: 46162 Left Heart Cath (+/-LV) Moderate Sedation Procedure 1: Sedation/Anesthesia: 68452 Mod Sedation by the same physician; Ea [id number] Minutes PG Care Time/CCT Total # of Minutes Spent Total Time Spent: 50 Total Time Spent with Patient: Total time spent is greater than 50% in coordination of care (as documented) at patient's floor/unit and/or counseling patient: Prolonged Care Time Prolonged Care Time: No
[2021-10-22] MEDS ORDERED: METOPROLOL TARTRATE 25 MG TAB PO SCH (16:00)
[2021-10-22] MEDS ORDERED: MoRPHine SULFATE 2 MG/ML CARP IV PRN (16:01)
[2021-10-22] MEDS ORDERED: ALUMINUM/MAGNESIUM SUSP 30 ML UDC PO PRN (16:01)
[2021-10-22] MEDS ORDERED: ONDANSETRON INJ 2 MG/ML 2 ML VIAL IV PRN (16:01)
[2021-10-22] MEDS ORDERED: lisinopril 5 MG TAB PO SCH (16:30)
--- NOTE | 2021-10-22 16:38 | History & Physical Report ---
Date of Service October 22, 2021 Assessment & Plan (1) Stress-induced cardiomyopathy: Plan: Patient came in as a heart alert look to have ST elevation Personal Service Representative shows nonocclusive coronary disease no left ventricular outflow tract obstruction described but diagnosis of Takotsubo's is considered. Ejection fraction in the Personal Service Representative was estimated at 30 to 35% pending echocardiogram. Etiology elected to start aspirin and atorvastatin. Fasting lipid panel will be in the morning, lipids earlier this month and an LDL of 82 and an HDL of 83 Patient is to be initiated on metoprolol this evening if blood pressure permits and lisinopril tomorrow. Consult Geraldine with heart failure clinic with undertaken. (2) Ulcerative colitis: Plan: Patient had no additional ulcerative colitis symptoms will be continued on mesalamine (3) Depression: Plan: Patient continues on the effects or Plan: Patient is a full code SCD for DVT prevention Admission and Anticipated Discharge Date Admission Date: October 22, 2021 History of Present Illness Primary Care Provider: Cathie Bean MD 66-year-old female who is relatively healthy does suffer from depression and ulcerative colitis. Patient presented with chest pain after working outside she was diaphoretic nauseous it radiates to her left arm Initial EKG showed ST elevation inferior laterally she was called a heart alert taken to emergently to Personal Service Representative. Cath report shows nonocclusive coronary artery disease and suggestion of Takotsubo's stress-induced cardiomyopathy with an EF of 30 to 35%. Patient tolerate the procedure well she is up in the telemetry unit her blood pressure was initially elevated now at slightly lower at 115/77. Initial treatment with VIVIAN inhibitor is currently on hold with hopes that her blood pressure improved and she can tolerate VIVIAN inhibitor treatment in the morning. Beta-blockers will be continued. Although nonocclusive coronary disease was noted cardiology elected to start aspirin and atorvastatin. Fasting lipid is pending for the morning COVID screening test was negative Allergies Allergy/AdvReac Type Severity Reaction Status Date / Time Penicillins Allergy Unknown PT NOT Verified 10/22/21 14:50 SURE, THINKS RASH Sulfa (Sulfonamide Allergy Unknown PT NOT Verified 10/22/21 14:50 Antibiotics) SURE, THINKS RASH Home Medications Medication Instructions Recorded Confirmed Type venlafaxine 75 mg capsule,extended 75 mg PO DAILY #90 cap 04/26/21 10/22/21 Rx release 24 hr diclofenac sodium 75 mg 75 mg PO BID PRN #180 tab 05/21/21 10/22/21 Rx tablet,delayed release rizatriptan 10 mg disintegrating 10 mg PO Q2H PRN #30 tab 09/11/21 10/22/21 Rx tablet (Maxalt-FINISHING AREA SUPERVISOR) venlafaxine 37.5 mg 37.5 mg PO DAILY #30 cap 09/24/21 10/22/21 Rx capsule,extended release 24 hr (Effexor XR) mesalamine 800 mg tablet,delayed 1,600 mg PO DAILY 10/22/21 10/22/21 History release omega 3-dha and epa 476 mg-fish 1 cap PO DAILY 10/22/21 10/22/21 History oil 800 mg capsule (MegaRed Advanced 6x Absorption) Past Med/Surg History Medical History Abdominal pain Anxiety Bilateral ovarian cysts Enteritis H/O thyroid cyst Postmenopausal bleeding Thyroid nodule Wrist pain, left Surgical History H/O bilateral breast implants H/O dilation and curettage H/O sinus surgery History of bilateral mastectomy History of eye surgery History of fusion of cervical spine History of gynecologic surgery History of gynecologic surgery History of hand surgery History of hysterectomy History of knee surgery History of LAVH History of removal of cyst S/P endometrial ablation S/P tonsillectomy S/P tooth extraction Family History Grandfather (Maternal) Myocardial infarction Mother Lung cancer Denies family history of Ovarian cancer Prostate cancer Breast cancer Colorectal cancer Social History (Updated 09/24/21 @ 09:51 by Crystal Puckett LPN) Smoking Status: Never smoker Second Hand Exposure: No; Hx Alcohol Use: Yes Hx Substance Use: No Preferred Language: Maori Communication Ability: Effective Hearing Ability: Hard of Hearing Patient Safety Attendant Required: No marital status: Current Living Situation: Spouse current occupational status: employed 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 How many Children do You have: 1 Feels Safe at Home: Yes Childhood Exposure to Second-Hand Smoke: Yes caffeine: Yes Dental Care, Regularly: Yes Physical Activity Frequency: Daily Seatbelt Use: always Sunscreen Use: Yes Review of Systems Review of Systems: Solution of cardiac symptoms at this time patient feels slightly fatigued from sedation no headache, no visual changes no speech or swallowing issues Resolution of previous chest pain no shortness of breath, cough or wheezes no abdominal pain, nausea or vomiting, diarrhea or constipation no dysuria, hematuria or frequency no focal joint pain or swelling no back pain, CVA tenderness or radicular pain no bruising, bleeding or rashes no focal signs of weakness or numbness or altered sensation no complaints of anxiety or depression.. Physical Exam Physical Exam: The patient appeared well nourished and normally developed. Vital signs as documented. Head exam is normocephalic atraumatic Neck is without JVD, thyromegaly, or carotid bruits. Lungs are clear to auscultation, no focal loss of breath sounds Cardiac exam, Rhythm is regular.. No murmurs, rubs or gallops. Abdominal exam reveals normal bowel sounds, soft non tender, no masses Extremities are nonedematous and both pedal pulses are present Neurologic exam is alert and oriented, no focal loss of strength or sensation Skin is without bruises or rashes Psychologically is without concerns for anxiety or depression.. Results & Data Results & Data ([facility]) Vital Signs (Past 12 Hours) Vital Signs Temp Pulse Pulse Resp BP BP Pulse Ox 10/22/21 16:01 65 16 115/77 99 10/22/21 15:46 97.5 F L 87 16 112/75 95 10/22/21 14:36 69 98 10/22/21 14:22 172/96 H 10/22/21 14:15 90 163/97 H 10/22/21 14:09 20 163/97 H 93 10/22/21 13:53 97.5 F L 76 20 165/81 H 99 Diagnostic Findings Chest X-Ray 10/22/21 14:08 XR chest 1V portable CLINICAL HISTORY: Atypical chest pain TECHNIQUE: Single frontal radiograph of the chest was obtained. Comparison: Comparison is made to chest radiograph 11/20/2015 FINDINGS: No lines and tubes are seen. Calcified aortic knob is seen. The lungs are clear. Bilateral chest wall surgical clips are seen. IMPRESSION: No acute chest disease. ACT 112: Negative or not required by law. Electronically signed by: Danie Gamez M.D. 10/22/2021 3:09 PM ECG Additional Comments: Sinus rhythm with ST elevation inferior laterally was seen initial EKG Code Status & VTE Plan VTE Prophylaxis Plan VTE Prophylaxis will be ordered: Yes PG Care Time/CCT Total # of Minutes Spent Total Time Spent with Patient: Total time spent is greater than 50% in coordination of care (as documented) at patient's floor/unit and/or counseling patient: Coding Level of Care Code INT OBSERVATION CARE 70M LVL 3 Diagnoses Stress-induced cardiomyopathy I51.81 Ulcerative colitis K51.90 Depression F32.A
[2021-10-22] MEDS ORDERED: SODIUM CHLORIDE 0.9% 500 ML IV SCH (16:45)
[2021-10-22] MEDS: lisinopril 2.5 MG TAB PO SCH (17:08)
[2021-10-22] MEDS: METOPROLOL TARTRATE 25 MG TAB PO SCH (20:57)
[2021-10-22] MEDS ORDERED: ATORVASTATIN 20 MG TAB PO SCH (21:00)
[2021-10-22] MEDS: ACETAMINOPHEN 325 MG TAB PO PRN (21:01)
[2021-10-23 07:37] LABS: Hematocrit (blood only) 39.5 % (37-47); Hemoglobin 13.4 g/dL (12.0-16.0); Mean Corpuscular Hemoglobin 33.2 pg (25-34); Mean Corpuscular Hgb Conc 33.9 g/dL (32-36); Mean Corpuscular Volume 97.8 fL (80-100); Platelet Count 238 K/uL (130-400); RDW Standard Deviation 46.7 fL (36.4-46.3); Red Blood Count 4.04 M/uL (4.2-5.4); White Blood Count 6.59 K/uL (4.8-10.8)
[2021-10-23 08:01] LABS: BUN Creatinine Ratio 14.5 (10-20); Chol HDL Ratio 2.5 (0-5); Est GFR (African American) 105.9 ml/min; Est GFR (Non-African American) 91.4 ml/min; Magnesium 2.1 mg/dl (1.7-2.4); Potassium 3.8 mmol/L (3.5-5.1)
--- NOTE | 2021-10-23 08:20 | Electrocardiogram Report ---
Test Reason : Blood Pressure : / mmHG Vent. Rate : 077 BPM Atrial Rate : 077 BPM P-R Int : 172 ms QRS Dur : 080 ms QT Int : 396 ms P-R-T Axes : 012 067 074 degrees QTc Int : 448 ms Normal sinus rhythm Acute Inferolateral infarction Abnormal ECG When compared with ECG of 26-DEC-2016 15:22, ST more elevated in Inferior leads ST elevation now present in Lateral leads Confirmed by Daniele Canales ([id number]) on 10/23/2021 8:20:25 AM Referred By: REFERRED SELF Confirmed By:Daniele Canales
[2021-10-23] MEDS: ACETAMINOPHEN 325 MG TAB PO PRN (08:40)
[2021-10-23] MEDS: OMEGA-3 (PURIFIED FISH OIL) 1 GM CAP PO SCH (08:41)
[2021-10-23] MEDS: MESALAMINE 800 MG TABCR PO SCH (08:42)
[2021-10-23] MEDS: lisinopril 2.5 MG TAB PO SCH (08:42)
[2021-10-23] MEDS ORDERED: BUTALBITAL/ACETAMIN/CAFFEINE TAB PO PRN (08:42)
--- NOTE | 2021-10-23 08:42 | Electrocardiogram Report ---
Test Reason : Blood Pressure : / mmHG Vent. Rate : 063 BPM Atrial Rate : 063 BPM P-R Int : 194 ms QRS Dur : 088 ms QT Int : 436 ms P-R-T Axes : 061 075 079 degrees QTc Int : 446 ms Normal sinus rhythm ST elevation consider inferolateral injury or acute infarct Abnormal ECG When compared with ECG of 22-OCT-2021 14:02, ST less elevated in Inferior leads Nonspecific T wave abnormality now evident in Lateral leads Confirmed by Daniele Canales ([id number]) on 10/23/2021 8:41:43 AM Referred By: REFERRED SELF Confirmed By:Daniele Canales
[2021-10-23] MEDS: VENLAFAXINE HCL XR 75 MG CAPXR PO SCH (08:48)
[2021-10-23] MEDS: VENLAFAXINE HCL XR 37.5 MG CAPXR PO SCH (08:48)
[2021-10-23] MEDS: METOPROLOL TARTRATE 25 MG TAB PO SCH (08:48)
[2021-10-23] MEDS ORDERED: ATORVASTATIN 20 MG TAB PO SCH (09:00)
[2021-10-23] MEDS ORDERED: ASPIRIN 81 MG ECTAB PO SCH (09:00)
--- NOTE | 2021-10-23 10:56 | Cardiology Consultation ---
Date of Consultation October 23, 2021 Assessment & Plan (1) Stress-induced cardiomyopathy: (2) Ulcerative colitis: 66-year-old woman without significant vascular risk factors who was admitted 10/22/2021 with classic findings for stress-induced cardiomyopathy (Takotsubo syndrome). Given normal coronaries in the presence of ulcerative colitis, would favor NOT continuing aspirin since it is of no benefit for stress-induced cardiomyopathy and could prompt GI bleeding. Similarly, she has an excellent lipid profile and there would be little reason to believe she would benefit from a statin long- term, would therefore discontinue atorvastatin. Lisinopril was likely started for reduced systolic function, but this is very likely to normalize given the mechanism of transient LV dysfunction commonly seen in stress-induced cardiomyopathy. Since beta-abhijit therapy is the mainstay of management, would prefer to use her available blood pressure reserve titrating beta-abhijit upward rather than treating with more than 1 vasoactive agent. As such, would discontinue lisinopril and increase metoprolol to 25 mg twice daily (could change to metoprolol succinate for longer acting agent). Would recommend follow-up echocardiogram tomorrow morning to confirm that her systolic function is improving. Would recommend further monitoring overnight, since she did have transient chest discomfort yesterday after the catheterization. If she is doing well tomorrow, she could be discharged after her echocardiogram is obtained. Also, would obtain another troponin today to give a better estimate of the degree of myocardial involvement and her stress- induced cardiomyopathy. Cardiology follow-up with me in the office in 2 to 4 weeks. She should refrain from more than minor physical activity for now, will determine whether she can resume activity or should be in cardiac rehab based on her follow-up echocardiogram tomorrow as well as clinical reassessment in 2 to 4 weeks. History of Present Illness Reason for Consultation: Takotsubo Requesting Physician: Gumaro Gallego MD Attending Physician: Melina Moore MD History of Present Illness 66-year-old woman with no cardiac history admitted 10/22/2021 with abrupt onset chest discomfort associate with nausea and radiating to her left arm, diffuse ST elevations noted on ECG and she was taken emergently to [facility] where she was found to have normal coronaries but reduced systolic function (EF 30-35%) with classic apical ballooning on LV gram, felt to have Takotsubo syndrome/stress- induced cardiomyopathy. Her initial pain was 10/10 severity, she did have subsequent discomfort which was much milder (3/10 severity) later in the day yesterday, no further discomfort overnight or this morning. Initial high-sensitivity troponin was 360, repeat value not obtained. ECG today showed persistent but improved ST elevation in multiple leads (anterior, lateral, inferior). She was comfortable at the time of my evaluation this morning. Allergies Allergy/AdvReac Type Severity Reaction Status Date / Time Penicillins Allergy Unknown PT NOT Verified 10/22/21 14:50 SURE, THINKS RASH Sulfa (Sulfonamide Allergy Unknown PT NOT Verified 10/22/21 14:50 Antibiotics) SURE, THINKS RASH Home Medications Medication Instructions Recorded Confirmed Type venlafaxine 75 mg capsule,extended 75 mg PO DAILY #90 cap 04/26/21 10/22/21 Rx release 24 hr diclofenac sodium 75 mg 75 mg PO BID PRN #180 tab 05/21/21 10/22/21 Rx tablet,delayed release rizatriptan 10 mg disintegrating 10 mg PO Q2H PRN #30 tab 09/11/21 10/22/21 Rx tablet (Maxalt-NURSE PRACTITIONER PHYSICIAN ASSISTANT) venlafaxine 37.5 mg 37.5 mg PO DAILY #30 cap 09/24/21 10/22/21 Rx capsule,extended release 24 hr (Effexor XR) mesalamine 800 mg tablet,delayed 1,600 mg PO DAILY 10/22/21 10/22/21 History release omega 3-dha and epa 476 mg-fish 1 cap PO DAILY 10/22/21 10/22/21 History oil 800 mg capsule (MegaRed Advanced 6x Absorption) Patient History Medical History Abdominal pain Anxiety Bilateral ovarian cysts Cyst of ovary, right De Quervain's tenosynovitis Diverticulosis of colon Enteritis H/O thyroid cyst Insomnia Long-term use of hydroxychloroquine Ovarian mass, left Postmenopausal bleeding Retinal detachment, left BOOGIE (stress urinary incontinence, female) Thyroid nodule Vitamin D deficiency Wrist pain, left Surgical History H/O bilateral breast implants H/O dilation and curettage H/O sinus surgery History of bilateral mastectomy DCIS 2010 History of eye surgery History of fusion of cervical spine History of gynecologic surgery Cx cryosurgery History of gynecologic surgery Cx conization Loop electrode excision History of hand surgery History of hysterectomy History of knee surgery History of LAVH with BSO History of removal of cyst S/P endometrial ablation S/P tonsillectomy S/P tooth extraction Family History Grandfather (Maternal) Myocardial infarction Mother Lung cancer Denies family history of Ovarian cancer Prostate cancer Breast cancer Colorectal cancer Social History Smoking Status: Never smoker Second Hand Exposure: No; Hx Alcohol Use: Yes Alcohol type: beer Hx Substance Use: No Preferred Language: Ghanaian Communication Ability: Effective Hearing Ability: Hard of Hearing Nanoelectronics Engineer Required: No Beliefs That Will Affect Care: None marital status: Current Living Situation: Spouse current occupational status: employed 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 Normotensive. Pulse 62 bpm and regular. Skin: no ecchymoses or generalized lesions. HEENT: unremarkable. Neck: no JVD or carotid bruits. Lungs: clear. Cardiac: regular rhythm, normal S1 and S2, no murmur or gallop. Abdomen: benign. Extremities: no edema, pulses intact. Neurologic: normal affect, nonfocal. Results & Data ([facility]) Vital Signs (Past 12 Hours) Vital Signs Temp Pulse Pulse Resp BP Pulse Ox 10/23/21 08:32 98.1 F 63 19 116/69 95 10/23/21 04:17 98.1 F 63 12 112/70 97 10/23/21 03:03 62 10/22/21 23:00 97.7 F 91 H 18 125/73 92 Laboratory Results High-sensitivity troponin 360, not repeated. Normal CBC. Normal electrolytes, BUN 10, creatinine 0.69. Glucose 98. Hemoglobin A1c 5.3%. Lipid profile with cholesterol 152, HDL 61, LDL 69, triglycerides 112, ratio 2.5. Normal TSH. Diagnostic Findings Initial ECG showed sinus rhythm at [address] elevation (2-5 mm) of the inferior, anterior, and lateral leads). This was new compared with a 09/24/2021 ECG obtained in the office. Repeat ECG today showed sinus rhythm at 63 bpm with 1-[address] elevation in multiple leads. Chest x-ray showed no active disease. PG Care Time/CCT Total # of Minutes Spent Total Time Spent with Patient: Total time spent is greater than 50% in coordination of care (as documented) at patient's floor/unit and/or counseling patient: Coding Level of Care Code 50180 Inpt Consult Level 4 Diagnoses Stress-induced cardiomyopathy I51.81 Ulcerative colitis K51.90
--- NOTE | 2021-10-23 11:08 | Hospitalist Progress Note ---
Date of Service October 23, 2021 Assessment & Plan (1) Stress-induced cardiomyopathy: Plan: Patient came in as a heart alert with chest pain and ST elevation Psychological Science Professor shows nonocclusive coronary disease no left ventricular outflow tract obstruction described but diagnosis of Takotsubo's is considered. Ejection fraction in the Psychological Science Professor was estimated at 30 to 35% -consult Cardiology - started aspirin and atorvastatin but fasting lipid panel actually looks great- d/w Cardiology-these do not need to be continued - initiated on low doses of metoprolol and lisinopril-watch BPs as she runs low normal--> cardiology recommends dc lisinopril and increase metoprolol to Toprol XL 25mg po bid -check ECHO in AM (2) Ulcerative colitis: Plan: Patient had no additional ulcerative colitis symptoms will be continued on mesalamine (3) Depression: Plan: Patient continues on Effexor (4) Migraines: Plan: likely caffeine withdrawal add on fioricet prn Plan: Patient is a full code SCD for DVT prevention Dispo-likely dc otmorrow if doing ok Admission and Anticipated Discharge Date Admission Date: October 22, 2021 Subjective Feeling well today except has started having a migraine headache today. Typically takes Maxalt but advised against this for now with cardiac issues. She also typically drinks coffee daily and hasn't had it. Denies any further chest pain, no SOB, no leg swelling. Tele with NSR normal rates Review of Systems Review of Systems: All systems reviewed & are unremarkable except as noted in HPI & below Physical Exam Constitutional: WD/WN, vitals as above Eyes: + anicteric sclerae Neck: trachea midline, no thyromegaly Respiratory: normal respiratory effort, lungs clear to auscultation Cardiovascular: RRR, no murmur, no edema Vessels: dorsalis pedis pulses p resent Chest (Breasts): Chest: normal inspection of chest Gastrointestinal (Abdomen): normal bowel sounds, soft, nontender, no hepatosplenomegaly Musculoskeletal: Extremities: extremities normal to inspection; no cyanosis and no clubbing Skin: no rashes, warm and dry Neurologic: moves all extremities and awake; no focal motor deficits Psychiatric: A+Ox3, euthymic affect Lymphatic: no lymphedema Results & Data Results & Data ([facility]) Vital Signs (Past 12 Hours) Vital Signs Temp Pulse Pulse Resp BP Pulse Ox 10/23/21 08:32 36.7 C 63 19 116/69 95 10/23/21 04:17 36.7 C 63 12 112/70 97 10/23/21 03:03 62 Laboratory Results 10/23/21 10/23/21 10/23/21 Range/Units 07:11 07:00 07:00 WBC (4.8-10.8) K/uL RBC (4.2-5.4) M/uL Hgb (12.0-16.0) g/dL Hct (37-47) % MCV (80-100) fL MCH (25-34) pg MCHC (32-36) g/dL RDW Std Deviation (36.4-46.3) fL RDW Coeff of Inderjit (11.5-14.5) % Plt Count (130-400) K/uL MPV (7.4-10.4) fL Immature Gran % (Auto) % Neut % (Auto) % Lymph % (Auto) % [place] % (Auto) % Eos % (Auto) % Baso % (Auto) % Neut # (Auto) (1.4-6.5) K/uL Lymph # (Auto) (1.2-3.4) K/uL [place] # (Auto) (0.11-0.59) K/uL Eos # (Auto) (0-0.5) K/uL Baso # (Auto) (0-0.2) K/uL Immature Gran # (Auto) (0.00-0.02) K/uL Activ Coag Time Kaolin (94-140) SECONDS Sodium 140 (136-145) mmol/L Potassium 3.8 (3.5-5.1) mmol/L Chloride 108 H (98-107) mmol/L Carbon Dioxide 26 (21-32) mmol/L Anion Gap 6 (3-11) BUN 10 (6-23) mg/dl Creatinine 0.69 (0.6-1.2) mg/dl Est Cr Clr Drug Dosing 82.0 ml/min Est GFR ( Amer) 105.9 ml/min Est GFR (Non-Af Amer) 91.4 ml/min BUN/Creatinine Ratio 14.5 (10-20) Glucose 98 (70-99(Fasting)) mg/dl POC Glucose 103 H (70-99) mg/dl Calcium 9.0 (8.5-10.1) mg/dl Magnesium 2.1 (1.7-2.4) mg/dl Total Bilirubin (0.2-1.0) mg/dl AST (13-39) U/L ALT (7-52) U/L Alkaline Phosphatase (34-104) U/L Troponin I High Sens (0-14) pg/ml Total Protein (6.0-8.3) gm/dl Albumin (3.4-5.0) gm/dl Globulin (2.5-4.0) gm/dl Albumin/Globulin Ratio (0.9-2) Triglycerides 112 (0-150) mg/dl Cholesterol 152 (0-200) mg/dl LDL Cholesterol, Calc 69 mg/dl VLDL Cholesterol, Calc 22 (0-30) mg/dl HDL Cholesterol 61 mg/dl Cholesterol/HDL Ratio 2.5 (0-5) Lipase (11-82) U/L Hepatitis C Ab (EIA) Pending Hep C Ab Signal/Cutoff Pending SARS-CoV-2, RNA, NAAT (NEGATIVE) 10/23/21 10/22/21 10/22/21 Range/Units 07:00 20:12 14:56 WBC 6.59 (4.8-10.8) K/uL RBC 4.04 L (4.2-5.4) M/uL Hgb 13.4 (12.0-16.0) g/dL Hct 39.5 (37-47) % MCV 97.8 (80-100) fL MCH 33.2 (25-34) pg MCHC 33.9 (32-36) g/dL RDW Std Deviation 46.7 H (36.4-46.3) fL RDW Coeff of Inderjit 13.0 (11.5-14.5) % Plt Count 238 (130-400) K/uL MPV 10.0 (7.4-10.4) fL Immature Gran % (Auto) % Neut % (Auto) % Lymph % (Auto) % [place] % (Auto) % Eos % (Auto) % Baso % (Auto) % Neut # (Auto) (1.4-6.5) K/uL Lymph # (Auto) (1.2-3.4) K/uL [place] # (Auto) (0.11-0.59) K/uL Eos # (Auto) (0-0.5) K/uL Baso # (Auto) (0-0.2) K/uL Immature Gran # (Auto) (0.00-0.02) K/uL Activ Coag Time Kaolin 202 H (94-140) SECONDS Sodium (136-145) mmol/L Potassium (3.5-5.1) mmol/L Chloride (98-107) mmol/L Carbon Dioxide (21-32) mmol/L Anion Gap (3-11) BUN (6-23) mg/dl Creatinine (0.6-1.2) mg/dl Est Cr Clr Drug Dosing ml/min Est GFR ( Amer) ml/min Est GFR (Non-Af Amer) ml/min BUN/Creatinine Ratio (10-20) Glucose (70-99(Fasting)) mg/dl POC Glucose 95 (70-99) mg/dl Calcium (8.5-10.1) mg/dl Magnesium (1.7-2.4) mg/dl Total Bilirubin (0.2-1.0) mg/dl AST (13-39) U/L ALT (7-52) U/L Alkaline Phosphatase (34-104) U/L Troponin I High Sens (0-14) pg/ml Total Protein (6.0-8.3) gm/dl Albumin (3.4-5.0) gm/dl Globulin (2.5-4.0) gm/dl Albumin/Globulin Ratio (0.9-2) Triglycerides (0-150) mg/dl Cholesterol (0-200) mg/dl LDL Cholesterol, Calc mg/dl VLDL Cholesterol, Calc (0-30) mg/dl HDL Cholesterol mg/dl Cholesterol/HDL Ratio (0-5) Lipase (11-82) U/L Hepatitis C Ab (EIA) Hep C Ab Signal/Cutoff SARS-CoV-2, RNA, NAAT (NEGATIVE) 10/22/21 10/22/21 10/22/21 Range/Units 14:13 14:13 14:13 WBC 6.85 (4.8-10.8) K/uL RBC 4.28 (4.2-5.4) M/uL Hgb 13.8 (12.0-16.0) g/dL Hct 41.2 (37-47) % MCV 96.3 (80-100) fL MCH 32.2 (25-34) pg MCHC 33.5 (32-36) g/dL RDW Std Deviation 45.9 (36.4-46.3) fL RDW Coeff of Inderjit 13.2 (11.5-14.5) % Plt Count 266 (130-400) K/uL MPV 10.1 (7.4-10.4) fL Immature Gran % (Auto) 0.3 % Neut % (Auto) 65.4 % Lymph % (Auto) 23.5 % [place] % (Auto) 7.9 % Eos % (Auto) 2.6 % Baso % (Auto) 0.3 % Neut # (Auto) 4.48 (1.4-6.5) K/uL Lymph # (Auto) 1.61 (1.2-3.4) K/uL [place] # (Auto) 0.54 (0.11-0.59) K/uL Eos # (Auto) 0.18 (0-0.5) K/uL Baso # (Auto) 0.02 (0-0.2) K/uL Immature Gran # (Auto) 0.02 (0.00-0.02) K/uL Activ Coag Time Kaolin (94-140) SECONDS Sodium 141 (136-145) mmol/L Potassium 3.7 (3.5-5.1) mmol/L Chloride 106 (98-107) mmol/L Carbon Dioxide 26 (21-32) mmol/L Anion Gap 9 (3-11) BUN 16 (6-23) mg/dl Creatinine 0.91 (0.6-1.2) mg/dl Est Cr Clr Drug Dosing 62.2 ml/min Est GFR ( Amer) 76.7 ml/min Est GFR (Non-Af Amer) 66.2 ml/min BUN/Creatinine Ratio 17.6 (10-20) Glucose 112 H (70-99(Fasting)) mg/dl POC Glucose (70-99) mg/dl Calcium 9.6 (8.5-10.1) mg/dl Magnesium (1.7-2.4) mg/dl Total Bilirubin 1.0 (0.2-1.0) mg/dl AST 17 (13-39) U/L ALT 13 (7-52) U/L Alkaline Phosphatase 77 (34-104) U/L Troponin I High Sens 360.4 H* (0-14) pg/ml Total Protein 7.1 (6.0-8.3) gm/dl Albumin 4.6 (3.4-5.0) gm/dl Globulin 2.5 (2.5-4.0) gm/dl Albumin/Globulin Ratio 1.8 (0.9-2) Triglycerides (0-150) mg/dl Cholesterol (0-200) mg/dl LDL Cholesterol, Calc mg/dl VLDL Cholesterol, Calc (0-30) mg/dl HDL Cholesterol mg/dl Cholesterol/HDL Ratio (0-5) Lipase 16 (11-82) U/L Hepatitis C Ab (EIA) Hep C Ab Signal/Cutoff SARS-CoV-2, RNA, NAAT (NEGATIVE) 10/22/21 Range/Units 12:30 WBC (4.8-10.8) K/uL RBC (4.2-5.4) M/uL Hgb (12.0-16.0) g/dL Hct (37-47) % MCV (80-100) fL MCH (25-34) pg MCHC (32-36) g/dL RDW Std Deviation (36.4-46.3) fL RDW Coeff of Inderjit (11.5-14.5) % Plt Count (130-400) K/uL MPV (7.4-10.4) fL Immature Gran % (Auto) % Neut % (Auto) % Lymph % (Auto) % [place] % (Auto) % Eos % (Auto) % Baso % (Auto) % Neut # (Auto) (1.4-6.5) K/uL Lymph # (Auto) (1.2-3.4) K/uL [place] # (Auto) (0.11-0.59) K/uL Eos # (Auto) (0-0.5) K/uL Baso # (Auto) (0-0.2) K/uL Immature Gran # (Auto) (0.00-0.02) K/uL Activ Coag Time Kaolin (94-140) SECONDS Sodium (136-145) mmol/L Potassium (3.5-5.1) mmol/L Chloride (98-107) mmol/L Carbon Dioxide (21-32) mmol/L Anion Gap (3-11) BUN (6-23) mg/dl Creatinine (0.6-1.2) mg/dl Est Cr Clr Drug Dosing ml/min Est GFR ( Amer) ml/min Est GFR (Non-Af Amer) ml/min BUN/Creatinine Ratio (10-20) Glucose (70-99(Fasting)) mg/dl POC Glucose (70-99) mg/dl Calcium (8.5-10.1) mg/dl Magnesium (1.7-2.4) mg/dl Total Bilirubin (0.2-1.0) mg/dl AST (13-39) U/L ALT (7-52) U/L Alkaline Phosphatase (34-104) U/L Troponin I High Sens (0-14) pg/ml Total Protein (6.0-8.3) gm/dl Albumin (3.4-5.0) gm/dl Globulin (2.5-4.0) gm/dl Albumin/Globulin Ratio (0.9-2) Triglycerides (0-150) mg/dl Cholesterol (0-200) mg/dl LDL Cholesterol, Calc mg/dl VLDL Cholesterol, Calc (0-30) mg/dl HDL Cholesterol mg/dl Cholesterol/HDL Ratio (0-5) Lipase (11-82) U/L Hepatitis C Ab (EIA) Hep C Ab Signal/Cutoff SARS-CoV-2, RNA, NAAT NEGATIVE (NEGATIVE) PG Care Time/CCT Total # of Minutes Spent Total Time Spent with Patient: Total time spent is greater than 50% in coordination of care (as documented) at patient's floor/unit and/or counseling patient: Coding Level of Care Code 62861 Subseq Obs Care Lvl 3 Diagnoses Stress-induced cardiomyopathy I51.81 Ulcerative colitis K51.90 Depression F32.A Migraines G43.909
[2021-10-23] MEDS: METOPROLOL SUCC 25MG EXT REL TAB PO SCH (20:04)
[2021-10-24 07:32] LABS: Hematocrit (blood only) 40.5 % (37-47); Hemoglobin 13.2 g/dL (12.0-16.0); Mean Corpuscular Hemoglobin 31.9 pg (25-34); Mean Corpuscular Hgb Conc 32.6 g/dL (32-36); Mean Corpuscular Volume 97.8 fL (80-100); Mean Platelet Volume 10.2 fL (7.4-10.4); Platelet Count 232 K/uL (130-400); RDW Coefficient of Variation 13.1 % (11.5-14.5); RDW Standard Deviation 47.2 fL (36.4-46.3); Red Blood Count 4.14 M/uL (4.2-5.4); White Blood Count 5.89 K/uL (4.8-10.8)
[2021-10-24 08:18] LABS: Calcium 9.2 mg/dl (8.5-10.1); Creatinine Clr Calc Pharmacy 75.4 ml/min; Est GFR (African American) 96.9 ml/min; Est GFR (Non-African American) 83.6 ml/min; Magnesium 2.1 mg/dl (1.7-2.4)
[2021-10-24] MEDS: VENLAFAXINE HCL XR 75 MG CAPXR PO SCH (08:34)
[2021-10-24] MEDS: VENLAFAXINE HCL XR 37.5 MG CAPXR PO SCH (08:34)
[2021-10-24] MEDS: MESALAMINE 800 MG TABCR PO SCH (08:34)
[2021-10-24] MEDS: OMEGA-3 (PURIFIED FISH OIL) 1 GM CAP PO SCH (08:34)
[2021-10-24] MEDS: METOPROLOL SUCC 25MG EXT REL TAB PO SCH (08:34)
--- NOTE | 2021-10-24 09:35 | Cardiology Progress Note ---
Date of Service October 24, 2021 Assessment & Plan (1) Stress-induced cardiomyopathy: (2) Ulcerative colitis: Plan: 66-year-old woman without significant vascular risk factors who was admitted 10/22/2021 with classic findings for stress-induced cardiomyopathy (Takotsubo syndrome). Hemodynamics favorable, continue metoprolol succinate 25 mg twice daily upon discharge. Await follow-up echocardiogram, ECG changes are dramatic but somewhat expected in the context of Takotsubo syndrome. Expect that her left ventricular systolic function should be improving (if not back to normal). Unless her echocardiogram were to show further decline in LV systolic function, she should be okay for discharge today with cardiology follow-up with me in the office in 2 to 4 weeks. She should refrain from more than minor physical activity for now, will determine whether she can resume activity or should be in cardiac rehab based on her follow-up echocardiogram tomorrow as well as clinical reassessment in 2 to 4 weeks. Admission and Anticipated Discharge Date Admission Date: October 22, 2021 Subjective Patient doing well, no further chest discomfort since yesterday morning. No dyspnea, palpitations, or other complaints. Telemetry shows sinus rhythm in the 50 to 60 bpm range. Physical Exam Physical Exam: No distress. Normotensive. Pulse 64 bpm and regular. Skin: no ecchymoses or generalized lesions. HEENT: unremarkable. Neck: no JVD or carotid bruits. Lungs: clear. Cardiac: regular rhythm, normal S1 and S2, no murmur or gallop. Abdomen: benign. Extremities: no edema, pulses intact. Neurologic: normal affect, nonfocal. Results & Data ([facility]) Vital Signs (Past 12 Hours) Vital Signs Temp Pulse Pulse Resp BP Pulse Ox 10/24/21 08:30 65 10/24/21 07:15 57 L 10/24/21 07:02 98.6 F 58 L 19 133/72 98 10/24/21 04:32 97.9 F 62 18 106/63 97 10/23/21 23:00 66 10/23/21 22:53 97.9 F 75 20 114/69 98 Laboratory Results Normal electrolytes, BUN 15, creatinine 0.75. Troponin increased from 360 to 1689 before declining to 1008. Diagnostic Findings ECG today showed sinus bradycardia with deep global T wave inversions. Previously noted ST elevation no longer present. PG Care Time/CCT Total # of Minutes Spent Total Time Spent with Patient: Total time spent is greater than 50% in coordination of care (as documented) at patient's floor/unit and/or counseling patient: Coding Level of Care Code 75577 Subseq Hosp Care Lvl 3 Diagnoses Stress-induced cardiomyopathy I51.81 Ulcerative colitis K51.90
--- NOTE | 2021-10-24 12:55 | Discharge Summary ---
Date of Service October 24, 2021 Admission HPI Per Admitting Provider 66-year-old female who is relatively healthy does suffer from depression and ulcerative colitis. Patient presented with chest pain after working outside she was diaphoretic nauseous it radiates to her left arm Initial EKG showed ST elevation inferior laterally she was called a heart alert taken to emergently to Medical Representative. Cath report shows nonocclusive coronary artery disease and suggestion of Takotsubo's stress-induced cardiomyopathy with an EF of 30 to 35%. Patient tolerate the procedure well she is up in the telemetry unit her blood pressure was initially elevated now at slightly lower at 115/77. Initial treat ment with VIVIAN inhibitor is currently on hold with hopes that her blood pressure improved and she can tolerate VIVIAN inhibitor treatment in the morning. Beta- blockers will be continued. Although nonocclusive coronary disease was noted cardiology elected to start aspirin and atorvastatin. Fasting lipid is pending for the morning COVID screening test was negative Principal Diagnosis Takotsubo's syndrome/Stress-induced cardiomyopathy Discharge Exam Constitutional WD/WN, vitals as above Eyes + anicteric sclerae Neck trachea midline, no thyromegaly Respiratory normal respiratory effort, lungs clear to auscultation Cardiovascular RRR, no murmur, no edema Vessels: dorsalis pedis pulses present Chest (Breasts) Chest: normal inspection of chest Gastrointestinal (Abdomen) normal bowel sounds, soft, nontender, no hepatosplenomegaly Musculoskeletal Extremities: extremities normal to inspection; no cyanosis and no clubbing Skin no rashes, warm and dry Neurologic moves all extremities and awake; no focal motor deficits Psychiatric A+Ox3, euthymic affect Lymphatic no lymphedema Discharge Data Allergies Allergy/AdvReac Type Severity Reaction Status Date / Time Penicillins Allergy Unknown PT NOT Verified 10/22/21 14:50 SURE, THINKS RASH Sulfa (Sulfonamide Allergy Unknown PT NOT Verified 10/22/21 14:50 Antibiotics) SURE, THINKS RASH Consultations 10/23/21 08:42 Consult Cardiology Routine Procedures Performed Operation Date: 10/22/21 14:45 Actual Procedures p Cath, Left with Cors and Vent - Von Fabian MD s Cineradiography w/Routine Exam - Von Fabian MD Ordered Studies 10/22/21 14:23 CL Cath Imgs for PACS use only Stat ECHO Hospital Course (1) Stress-induced cardiomyopathy: Patient came in as a heart alert with chest pain and ST elevation Medical Representative shows nonocclusive coronary disease no left ventricular outflow tract obstruction described but diagnosis of Takotsubo's was confirmed Ejection fraction in the Medical Representative was estimated at 30 to 35% -consult Cardiology appreciated - started aspirin and atorvastatin but fasting lipid panel actually looks great- d/w Cardiology-these do not need to be continued in absence of CAD - initiated on metoprolol XL 25mg po bid and did receive one dose of lisinopril however Cardiology did not feel this was necessary -repeat ECHO on day of discharge showed improvement of EF to 55% and only mild apical hypokinesis remaining-much improved no evidence of volume overload, no events on tele DOing well and ready for dc to home -continue Toprol XL 25mg bid on dc and f/u with Cardio in 2-4 weeks Light activity only for the next month may need cardiac rehab -advised returning to usual dose of Effexor 75mg in case the higher dose contributed to her CM (Effexor does inhibit uptake of norepi) (2) Ulcerative colitis: Patient had no additional ulcerative colitis symptoms will be continued on mesalamine (3) Depression: Patient continues on Effexor but recently had dose increased--> decrease back to previous dose of 75mg daily as above (4) Migraines: likely caffeine withdrawal add on fioricet prn-took on dose and migraine resolved Patient is a full code SCD for DVT prevention Dispo-dc to home today Total Time Total Time Spent Total Time Spent (In Minutes): 40 min Total Time Includes: Examination of the Patient, Discharge Planning, Medication Reconciliation and Communication With Other Providers (Cardiology) Discharge Plan Discharge Items Patient Disposition: Home - Self-Care Reason For Visit: HEART ALERT>TAKOTSUBOS Discharge Diagnosis: Takotsubo's syndrome, cardiomyopathy Condition on Discharge: Good Activity: As commented below Lifting: No more than 5 pounds Bathing: No limitations Exercise Comment: Only light activity until seen by Cardiology Driving/Machine Use: Resume 3 days after discharge Non-emergency contact: Primary Care Provider and As[facility] Call non-emergency contact if: you have any medication questions, your symptoms worsen and your pain is not controlled Follow-up/Referrals: Daniele Canales MD [Physician] - (Follow up within 2-4 weeks) Cathie Bean MD [Primary Care Provider] - (Follow up within 1-2 weeks) Diet: Heart Healthy [facility] Attending Provider Instructions: You were admitted with chest pain and initially thought to be having a heart attack. As it turned out, your coronary arteries were normal and you did not hav e a heart attack. However, you had a stress-induced cardiomyopathy (Takotsubo's syndrome) which can mimic a heart attack. This did temporarily cause you to have heart failure but it has already recovered back to almost completely normal. Please remain on the metoprolol and follow up with the Assembler Unit in 2-4 weeks. If you have a recurrence of your symptoms or develop any shortness of breath or leg swelling, please return to the hospital. Call your Primary Care doctor if any of the following symptoms or problems start or get worse: * Shortness of breath or difficulty breathing * Wake up at night short of breath * Chest pain * Cough * Swelling of your hands, feet, or legs * More fatigued or tired with your normal activity * Palpitations - sudden fast heart beats WEIGHT * Weigh yourself every morning after using the bathroom. * Use the same scale. * Wear the same amount of clothing. * Write your weight down on a chart. * Call your Primary Care doctor if you gain more than 2-3 pounds in 1-2 days. MEDICATIONS * Use this discharge instruction sheet for medication instructions. * Take your medications at the time your doctor ordered. * Do not skip a dose of your medicines. * If you miss a dose of medicine, take it as soon as possible, but DO NOT DOUBLE A DOSE. * Read your medicine information when you get home. * Know all of the side effects of your medicine. If in doubt, ask your pharmacist * Call your Primary Care doctor's office if you have any side effects. * Be sure all of your doctors know what medicine and herbs you take (including cold, flu, and herbal medicine). Take the following with you to your follow-up doctor appointments: * Weight Chart * Medication List * List of questions Do not drink excessive alcohol, beer or wine. ACTIVITY RECOMMENDATIONS: Excess manipulation of the wrist should be avoided for the next 24-48 hours. * No lifting over 2 pounds (approximately a 1/2 gallon of milk) with the utilized arm for 24 hours. * No strenuous activity such as bowling or tennis for 3 days. * Keep the site of the procedure covered with a bandage for 24 hours. *You may shower the day after the procedure. Do not take a tub bath or submerge the puncture site in water for the next 3 days. *Do not operate any motorized equipment for 3 days. SPECIAL CARE INSTRUCTIONS: The site may be slightly bruised and sore following your procedure. Should any of the following occur, contact the Dr. who performed your procedure. 1. Redness/inflammation, swelling, chills, or fever, or colored drainage at procedure site within 3-7 days after your procedure. 2. Coldness, discoloration, ongoing numbness, severe pain, or swelling. Expect mild tingling of hand and tenderness at the puncture site for up to three days. If this persists beyond three days, or other symptoms develop, notify the Dr. who performed your procedure. BLEEDING: If the procedure site on your wrist begins to bleed, do not panic 1. Place 1 or 2 fingers firmly just slightly above the insertion site to stop the bleeding. You may be able to feel your pulse as you hold pressure. 2. Lift your finger after 5 minutes to see if the bleeding has stopped. 3. Once the bleeding has stopped, gently wipe the wrist area clean with a bandage. * If the bleeding from your wrist does not stop after 10 minutes, or if there is a large amount of bleeding or spurting, call 911 (do not drive yourself to the hospital). SKIN IRRITATION: * You may experience some redness and/or swelling in the area where radiation was administered. If any skin irritation occurs, please contact your family physician. FOLLOW UP VISIT: Keep any scheduled doctor appointments. Pending Studies at Discharge: No Stand-Alone Forms: My [facility] TweetUp, Smoking Cessation Medications and DC Order Prescriptions: New metoprolol succinate 25 mg Tablet Extended Release 24 Hr 25 mg PO BID Qty: 60 RF: 0 Continued rizatriptan [Maxalt-PROCUREMENT PROFESSIONAL] 10 mg tablet,disintegrating 10 mg PO Q2H PRN (Reason: migraine headache) Qty: 30 RF: 1 venlafaxine 75 mg capsule,extended release 24hr 75 mg PO DAILY Qty: 90 RF: 1 mesalamine 800 mg tablet,delayed release (DR/EC) 1,600 mg PO DAILY RF: 0 MegaRed Advanced 6x Absorption 476-800 mg Capsule 1 cap PO DAILY RF: 0 Discontinued diclofenac sodium 75 mg tablet,delayed release (DR/EC) 75 mg PO BID PRN (Reason: pain) Qty: 180 RF: 1 venlafaxine [Effexor XR] 37.5 mg capsule,extended release 24hr 37.5 mg PO DAILY Qty: 30 RF: 4 Discharge Orders: Discharge Order (Routine); Ordered 10/24/21 Ordered By: Melina Moore Admission Data Admit Date/Time: 10/22/21 15:53 Attending Provider: Melina Moore Admit Provider: Gumaro Gallego Primary Care Provider: Cathie Bean Other Providers: Daniele Canales Coding Level of Care Code 64588 OBS Care - Discharge Diagnoses Stress-induced cardiomyopathy I51.81 Ulcerative colitis K51.90 Depression F32.A Migraines G43.909
--- NOTE | 2021-10-24 13:48 | XCELERA ---
[id number] [id number]
--- NOTE | 2021-10-25 13:39 | Electrocardiogram Report ---
Test Reason : Blood Pressure : / mmHG Vent. Rate : 057 BPM Atrial Rate : 057 BPM P-R Int : 194 ms QRS Dur : 088 ms QT Int : 500 ms P-R-T Axes : 006 057 256 degrees QTc Int : 486 ms Sinus bradycardia T-wave inversion in multiple leads, consistent with known Tsakotsubo syndrome Prolonged QT Abnormal ECG When compared with ECG of 23-OCT-2021 04:11, ST no longer elevated in Anterolateral leads T wave inversion now evident in Inferior leads T wave inversion now evident in Anterolateral leads Confirmed by Daniele Canales ([id number]) on 10/25/2021 1:39:31 PM Referred By: REFERRED SELF Confirmed By:Daniele Canales
== END 2021-10-24 15:22 | disposition home or self-care (01) ==
LOC: ED 13:47 → 2S 14:39 → CC 14:39 → SUATTDRO 15:53

== ENCOUNTER 2023-12-23 10:42 | Observation (INO) ==
[2023-12-23] MEDS: SODIUM CHLORIDE 0.9% 1,000 ML IV ONE (11:14)
[2023-12-23] MEDS: ONDANSETRON INJ 2 MG/ML 2 ML VIAL IV STA (11:15)
[2023-12-23 11:39] LABS: Basophils # (auto) 0.02 K/uL (0.00-0.20); Basophils % (auto) 0.4 %; Eosinophils # (auto) 0.16 K/uL (0.00-0.50); Eosinophils % (auto) 3.4 %; Hematocrit (blood only) 43.5 % (37.0-47.0); Hemoglobin 14.4 g/dl (12.0-16.0); Immature Granulocytes # (auto) 0.01 K/uL (0.01-0.20); Immature Granulocytes % (auto) 0.2 %; Lymphocytes # (auto) 1.37 K/uL (1.20-3.40); Mean Corpuscular Hemoglobin 32.2 pg (25.0-34.0); Mean Corpuscular Hgb Conc 33.1 g/dL (32.0-36.0); Mean Corpuscular Volume 97.3 fL (80.0-100.0); Monocytes # (auto) 0.39 K/uL (0.11-0.59); Monocytes % (auto) 8.2 %; Neutrophils # (auto) 2.78 K/uL (1.40-6.50); Neutrophils % (auto) 58.8 %; Platelet Count 204 K/uL (130-400); RDW Coefficient of Variation 12.3 % (11.5-14.5); RDW Standard Deviation 44.3 fL (36.4-46.3); Red Blood Count 4.47 M/uL (4.20-5.40); White Blood Count 4.73 K/ul (4.8-10.8)
[2023-12-23] MEDS: ACETAMINOPHEN 1,000 MG/100 ML VIAL IV STA (11:39)
--- NOTE | 2023-12-23 11:40 | Emergency Department Note ---
Impression & Plan Headache, Dizziness, Ambulatory dysfunction, Colitis ED Provider Note HISTORY OF PRESENT ILLNESS: Patient is a 68-year-old female presenting with dizziness, nausea and vomiting. Patient reports that she has had a frontal headache for the last 24 hours. She reports that 2 nights ago she had nausea and a few episodes of vomiting and diarrhea. She reports that last night she developed a headache and felt dizzy and lightheaded. States that "I feel like I am walking drunk." She has a history of vertigo but reports this dizziness feels different. She states that she has also developed right upper quadrant abdominal pain over the last 24 hours. Denies any history of abdominal surgeries. Denies any chest pain or shortness of breath. Denies any notable fevers. Denies any history of cardiac stents. She denies any anticoagulation use. She states that her dizziness and lightheadedness was worse today and she was encouraged to present to the emergency department for further evaluation. Denies any recent falls or head injuries. Denies any chiropractic manipulation of her neck. Patient denies any medication changes. ROS: as above PHYSICAL EXAM: Constitutional: Patient appears in no acute distress. HENT: Head: Normocephalic and atraumatic. Eyes: EOMI, PERRL. No reproducible nystagmus. Mouth/Throat: Mucous membranes moist. Neck: Trachea midline. Neck supple. Cardiovascular: Bradycardic with regular rhythm. No murmurs, rubs or gallops. Intact distal pulses. Pulmonary/Chest: No respiratory distress. Breath sounds clear and equal bilaterally. No wheezes or rales. Abdominal: Abdomen soft, no rebound or guarding. RUQ TTP Musculoskeletal: No edema, tenderness or deformity noted. Skin: Warm and dry. No rash, erythema, pallor or cyanosis Psychiatric: Appropriate mood and affect for situation. Neurological: Alert and keenly responsive. Facies symmetric. Able to raise eyebrows, close eyes, smile, puff mouth, stick out tongue, move tongue left and right and raise palate symmetrically. Able to shrug shoulders. PERRLA. SILT to forehead below eye and at jawline. Can hear soft noise bilaterally. Good finger to nose. Strength 5/5 in bilateral upper and lower extremities. SILT throughout bilateral upper and lower extremities. MDM: - Vitals signs showed hypertension and bradycardia - History obtained via patient. History as above. - Chronic conditions affecting care: HTN; Takotsubo cardiomyopathy; hx of breast cancer; depression - Differential diagnoses include, but are not limited to: ACS; dysrhythmia; peripheral vertigo; CVA; intracranial hemorrhage - Order placed for continuous cardiac monitoring. At this time, monitor showed rate of 50 bpm with normal sinus rhythm, per my interpretation. - External medical records reviewed. Wellness visit note dated 11/12/2023 was reviewed. Patient follows in their clinic for multiple chronic medical conditions. - EKG interpreted by myself showed normal sinus rhythm. Rate 59 bpm. QT 420. No acute ischemic changes. - Laboratory workup interpreted by myself showed leukopenia (WBC 4.73); normal PT/INR; stable electrolytes; normal troponin; normal lipase - UA negative for infection - Viral respiratory panel negative - CT head wo contrast negative for acute pathology. - CTA head/neck negative for acute pathology - CT abdomen/pelvis with IV contrast showed mild infectious or inflammatory colitis involving the ascending and transverse colon. - Patient given 1L NS and 4 mg IV zofran for symptoms. On reassessment, the patient is still complaining of a headache and dizziness. Given 1 g IV Tylenol and 0.5 mg of IV Ativan. - On reassessment, the patient reports her dizziness has slightly improved, but is still present. Attempted to ambulate the patient, but she was very unsteady on her feet and became very dizzy. Unclear etiology for symptoms at this time, but will order an MRI brain for further workup to rule out posterior circulation CVA. Will admit to hospital service for further evaluation, given patient's inability to ambulate at this time. - Discussion was had with director case about patient's case and need for admission - Hospitalist, Dr. Quintana, consulted for admission - [facility] ASSESSMENT AND PLAN: Diagnosis: dizziness; headache; ambulatory dysfunction; colitis Plan: admit Past Med/Surg History Problem List (Updated 12/23/23 @ 15:59 by Christine Sam MD) Colitis (Acute) Ambulatory dysfunction (Acute) Dizziness (Acute) Headache (Acute) Cough (Acute) H/O bilateral breast implants History of bilateral mastectomy DCIS 2009 Benign positional vertigo Thyroid nodule MONITOR Migraines (Chronic) Lumbar disc herniation (Chronic) History of removal of cyst History of knee surgery History of hysterectomy Arthritis (Chronic) Pulmonary nodule (Chronic) Joint inflammation of left hand and wrist Left wrist tendonitis Ulnar neuritis Lateral meniscal tear Hot flashes due to menopause EtOH dependence Anxiety Stress-induced cardiomyopathy Ulcerative colitis Depression Cyst of ovary, right De Quervain's tenosynovitis Diverticulosis of colon Insomnia Long-term use of hydroxychloroquine Ovarian mass, left BOOGIE (stress urinary incontinence, female) Vitamin D deficiency Takotsubo cardiomyopathy (09/2021) Encounter for examination following treatment at hospital Encounter for screening and preventative care Screening for skin cancer Fatigue CMC arthritis Osteoarthritis of right knee HTN (hypertension) Medical History History of colon polyps History of sleep study Inflammatory bowel disease History of breast cancer Hot flashes History of depression Borderline high blood pressure Takotsubo syndrome Retinal detachment, left Anaplasmosis Wrist pain, left Surgical History History of cardiac cath History of endoscopy History of colonoscopy History of arthroscopy of right knee H/O thyroid cyst History of gynecologic surgery History of gynecologic surgery H/O dilation and curettage S/P endometrial ablation S/P tooth extraction H/O sinus surgery S/P tonsillectomy History of LAVH History of hand surgery History of eye surgery History of fusion of cervical spine Family History Grandfather (Maternal) Myocardial infarction Mother Lung cancer Denies family history of Ovarian cancer Prostate cancer Breast cancer Colorectal cancer Social History Smoking Status: Never smoker Second Hand Exposure: No; Do You Dip or Chew Tobacco: No; Hx Alcohol Use: Yes (CASUAL) Alcohol type: beer Hx Substance Use: No Preferred Language: Algerian Communication Ability: Effective Hearing Ability: Use of Hearing Aid Caponizer Required: No Beliefs That Will Affect Care: None marital status: Current Living Situation: Spouse current occupational status: employed 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- [employer] How many Children do You have: 1 Feels Safe at Home: Yes Childhood Exposure to Second-Hand Smoke: Yes Diet: regular caffeine: Yes Dental Care, Regularly: Yes Physical Activity Frequency: Daily Seatbelt Use: always Sunscreen Use: Yes Assistive Devices: Glasses Allergies Allergies Allergy/AdvReac Type Severity Reaction Status Date / Time nitrofurantoin Allergy Intermediate ITCHING Verified 12/23/23 12:47 [From Macrobid] Sulfa (Sulfonamide Allergy Unknown PT NOT Verified 12/23/23 12:47 Antibiotics) SURE, THINKS RASH Home Meds Home Medications Medication Instructions Recorded Confirmed mesalamine 800 mg tablet,delayed 1,600 mg PO QAM 10/22/21 12/23/23 release omega 3-dha and epa 476 mg-fish 1 cap PO QAM 10/22/21 12/23/23 oil 800 mg capsule (MegaRed Advanced 6x Absorption) diclofenac sodium 75 mg 75 mg PO DAILY PRN Pain 12/23/23 12/23/23 tablet,delayed release timolol maleate 0.25 % eye drops 1 drp OPB BID 12/23/23 12/23/23 Previous Rx's Medication Instructions Recorded metoprolol succinate 25 mg 25 mg PO QAM #90 tabs 03/17/23 tablet,extended release 24 hr rizatriptan 10 mg disintegrating 10 mg PO Q2H PRN migraine headache 04/30/23 tablet (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) #30 tabs escitalopram oxalate 20 mg tablet 20 mg PO QAM #30 tabs 09/26/23 meclizine 25 mg tablet 25 mg PO BID PRN dizziness #30 tabs 11/17/23 Results & Data (ED) Vital Signs Vital Signs - 24 hr 12/23/23 10:52 12/23/23 11:17 12/23/23 11:20 Temperature 36.8 C Temperature Source Oral Pulse Rate 58 L 54 L Pulse Rate [Apical] 60 Pulse Rate from SpO2 Sensor Pulse Rhythm Regular Pulse Rhythm [Apical] Regular Respiratory Rate 20 19 17 Respiratory Effort / Characteristics Non-Labored Spontaneous Non-Labored Spontaneous Respiratory Depth Normal Respiratory Pattern Regular Blood Pressure 181/78 H Blood Pressure [Right Arm] 188/85 H Blood Pressure Mean 112 Blood Pressure Mean [Right Arm] 119 Pulse Oximetry 98 98 98 Oxygen Delivery Method Room Air Room Air Room Air Sepsis Recent Fever Within 48 Hours No Sepsis New/Unexplained Change in Mental Status N/A Sepsis Action Taken by Nursing No Action Required 12/23/23 11:21 12/23/23 11:24 12/23/23 11:30 Temperature Temperature Source Pulse Rate 60 51 L Pulse Rate [Apical] Pulse Rate from SpO2 Sensor Pulse Rhythm Pulse Rhythm [Apical] Respiratory Rate 15 16 Respiratory Effort / Characteristics Respiratory Depth Respiratory Pattern Blood Pressure 180/85 H Blood Pressure [Right Arm] Blood Pressure Mean 105 Blood Pressure Mean [Right Arm] Pulse Oximetry Oxygen Delivery Method Sepsis Recent Fever Within 48 Hours Sepsis New/Unexplained Change in Mental Status Sepsis Action Taken by Nursing 12/23/23 11:33 12/23/23 11:42 12/23/23 11:45 Temperature Temperature Source Pulse Rate 51 L 50 L Pulse Rate [Apical] Pulse Rate from SpO2 Sensor 50 L 50 L Pulse Rhythm Pulse Rhythm [Apical] Respiratory Rate 12 15 Respiratory Effort / Characteristics Respiratory Depth Respiratory Pattern Blood Pressure 154/84 H Blood Pressure [Right Arm] Blood Pressure Mean 91 Blood Pressure Mean [Right Arm] Pulse Oximetry 100 99 Oxygen Delivery Method Sepsis Recent Fever Within 48 Hours Sepsis New/Unexplained Change in Mental Status Sepsis Action Taken by Nursing 12/23/23 11:45 12/23/23 11:54 12/23/23 12:24 Temperature Temperature Source Pulse Rate 47 L 48 L 54 L Pulse Rate [Apical] Pulse Rate from SpO2 Sensor 47 L 49 L Pulse Rhythm Pulse Rhythm [Apical] Respiratory Rate 14 13 11 L Respiratory Effort / Characteristics Respiratory Depth Respiratory Pattern Blood Pressure Blood Pressure [Right Arm] Blood Pressure Mean Blood Pressure Mean [Right Arm] Pulse Oximetry 99 97 Oxygen Delivery Method Sepsis Recent Fever Within 48 Hours Sepsis New/Unexplained Change in Mental Status Sepsis Action Taken by Nursing 12/23/23 12:27 12/23/23 12:36 12/23/23 12:42 Temperature Temperature Source Pulse Rate 52 L 53 L 57 L Pulse Rate [Apical] Pulse Rate from SpO2 Sensor Pulse Rhythm Pulse Rhythm [Apical] Respiratory Rate 17 14 Respiratory Effort / Characteristics Respiratory Depth Respiratory Pattern Blood Pressure Blood Pressure [Right Arm] Blood Pressure Mean Blood Pressure Mean [Right Arm] Pulse Oximetry Oxygen Delivery Method Sepsis Recent Fever Within 48 Hours Sepsis New/Unexplained Change in Mental Status Sepsis Action Taken by Nursing 12/23/23 12:45 12/23/23 12:55 12/23/23 12:55 Temperature Temperature Source Pulse Rate 61 Pulse Rate [Apical] Pulse Rate from SpO2 Sensor Pulse Rhythm Pulse Rhythm [Apical] Respiratory Rate 16 Respiratory Effort / Characteristics Respiratory Depth Respiratory Pattern Blood Pressure 152/74 H 152/74 H Blood Pressure [Right Arm] Blood Pressure Mean 92 92 Blood Pressure Mean [Right Arm] Pulse Oximetry 98 Oxygen Delivery Method Sepsis Recent Fever Within 48 Hours Sepsis New/Unexplained Change in Mental Status Sepsis Action Taken by Nursing 12/23/23 12:57 12/23/23 13:00 12/23/23 13:00 Temperature Temperature Source Pulse Rate 51 L Pulse Rate [Apical] 54 L Pulse Rate from SpO2 Sensor 51 L Pulse Rhythm Pulse Rhythm [Apical] Respiratory Rate 15 19 Respiratory Effort / Characteristics Non-Labored Spontaneous Respiratory Depth Normal Respiratory Pattern Regular Blood Pressure 172/84 H Blood Pressure [Right Arm] 174/84 H Blood Pressure Mean 129 Blood Pressure Mean [Right Arm] 114 Pulse Oximetry 98 99 Oxygen Delivery Method Room Air Sepsis Recent Fever Within 48 Hours Sepsis New/Unexplained Change in Mental Status Sepsis Action Taken by Nursing 12/23/23 13:00 12/23/23 13:00 12/23/23 13:06 Temperature Temperature Source Pulse Rate 46 L 56 L Pulse Rate [Apical] Pulse Rate from SpO2 Sensor 47 L 51 L Pulse Rhythm Pulse Rhythm [Apical] Respiratory Rate 10 L 13 Respiratory Effort / Characteristics Respiratory Depth Respiratory Pattern Blood Pressure 172/84 H Blood Pressure [Right Arm] Blood Pressure Mean 129 Blood Pressure Mean [Right Arm] Pulse Oximetry 98 97 Oxygen Delivery Method Sepsis Recent Fever Within 48 Hours Sepsis New/Unexplained Change in Mental Status Sepsis Action Taken by Nursing 12/23/23 13:15 12/23/23 13:15 12/23/23 13:18 Temperature Temperature Source Pulse Rate 71 Pulse Rate [Apical] Pulse Rate from SpO2 Sensor Pulse Rhythm Pulse Rhythm [Apical] Respiratory Rate 15 Respiratory Effort / Characteristics Respiratory Depth Respiratory Pattern Blood Pressure 167/71 H 167/71 H Blood Pressure [Right Arm] Blood Pressure Mean 111 111 Blood Pressure Mean [Right Arm] Pulse Oximetry Oxygen Delivery Method Sepsis Recent Fever Within 48 Hours Sepsis New/Unexplained Change in Mental Status Sepsis Action Taken by Nursing 12/23/23 13:30 12/23/23 13:30 12/23/23 13:30 Temperature Temperature Source Pulse Rate 52 L Pulse Rate [Apical] Pulse Rate from SpO2 Sensor 53 L Pulse Rhythm Pulse Rhythm [Apical] Respiratory Rate 12 Respiratory Effort / Characteristics Respiratory Depth Respiratory Pattern Blood Pressure 155/76 H 155/76 H Blood Pressure [Right Arm] Blood Pressure Mean 114 114 Blood Pressure Mean [Right Arm] Pulse Oximetry 98 Oxygen Delivery Method Sepsis Recent Fever Within 48 Hours Sepsis New/Unexplained Change in Mental Status Sepsis Action Taken by Nursing 12/23/23 13:30 12/23/23 13:33 12/23/23 13:45 Temperature Temperature Source Pulse Rate 51 L Pulse Rate [Apical] Pulse Rate from SpO2 Sensor 50 L Pulse Rhythm Pulse Rhythm [Apical] Respiratory Rate 17 Respiratory Effort / Characteristics Respiratory Depth Respiratory Pattern Blood Pressure 155/76 H 144/76 H Blood Pressure [Right Arm] Blood Pressure Mean 114 95 Blood Pressure Mean [Right Arm] Pulse Oximetry 98 Oxygen Delivery Method Sepsis Recent Fever Within 48 Hours Sepsis New/Unexplained Change in Mental Status Sepsis Action Taken by Nursing 12/23/23 13:45 12/23/23 13:48 12/23/23 14:00 Temperature Temperature Source Pulse Rate 60 Pulse Rate [Apical] Pulse Rate from SpO2 Sensor 51 L Pulse Rhythm Pulse Rhythm [Apical] Respiratory Rate 20 Respiratory Effort / Characteristics Respiratory Depth Respiratory Pattern Blood Pressure 144/76 H 167/69 H Blood Pressure [Right Arm] Blood Pressure Mean 95 99 Blood Pressure Mean [Right Arm] Pulse Oximetry 94 Oxygen Delivery Method Sepsis Recent Fever Within 48 Hours Sepsis New/Unexplained Change in Mental Status Sepsis Action Taken by Nursing 12/23/23 14:39 12/23/23 15:00 12/23/23 15:00 Temperature Temperature Source Pulse Rate 52 L Pulse Rate [Apical] 65 Pulse Rate from SpO2 Sensor 53 L Pulse Rhythm Pulse Rhythm [Apical] Respiratory Rate 17 18 Respiratory Effort / Characteristics Non-Labored Spontaneous Respiratory Depth Normal Respiratory Pattern Blood Pressure 141/71 H Blood Pressure [Right Arm] 141/71 H Blood Pressure Mean 84 Blood Pressure Mean [Right Arm] 94 Pulse Oximetry 95 99 Oxygen Delivery Method Room Air Sepsis Recent Fever Within 48 Hours Sepsis New/Unexplained Change in Mental Status Sepsis Action Taken by Nursing 12/23/23 15:03 12/23/23 15:12 12/23/23 15:27 Temperature Temperature Source Pulse Rate 50 L 52 L 52 L Pulse Rate [Apical] Pulse Rate from SpO2 Sensor 51 L 50 L 53 L Pulse Rhythm Pulse Rhythm [Apical] Respiratory Rate 16 14 15 Respiratory Effort / Characteristics Respiratory Depth Respiratory Pattern Blood Pressure Blood Pressure [Right Arm] Blood Pressure Mean Blood Pressure Mean [Right Arm] Pulse Oximetry 95 96 94 Oxygen Delivery Method Sepsis Recent Fever Within 48 Hours Sepsis New/Unexplained Change in Mental Status Sepsis Action Taken by Nursing 12/23/23 15:30 Temperature Temperature Source Pulse Rate 50 L Pulse Rate [Apical] Pulse Rate from SpO2 Sensor 51 L Pulse Rhythm Pulse Rhythm [Apical] Respiratory Rate 15 Respiratory Effort / Characteristics Respiratory Depth Respiratory Pattern Blood Pressure Blood Pressure [Right Arm] Blood Pressure Mean Blood Pressure Mean [Right Arm] Pulse Oximetry 95 Oxygen Delivery Method Sepsis Recent Fever Within 48 Hours Sepsis New/Unexplained Change in Mental Status Sepsis Action Taken by Nursing Laboratory Data 12/23/23 11:14 12/23/23 11:14 Lab Results 12/23/23 12/23/23 Range/Units 11:14 11:46 WBC 4.73 L (4.8-10.8) K/ul RBC 4.47 (4.20-5.40) M/uL Hgb 14.4 (12.0-16.0) g/dl Hct 43.5 (37.0-47.0) % MCV 97.3 (80.0-100.0) fL MCH 32.2 (25.0-34.0) pg MCHC 33.1 (32.0-36.0) g/dL RDW Std Deviation 44.3 (36.4-46.3) fL RDW Coeff of Inderjit 12.3 (11.5-14.5) % Plt Count 204 (130-400) K/uL MPV 10.0 (9.4-12.4) fL Immature Gran % (Auto) 0.2 % Neut % (Auto) 58.8 % Lymph % (Auto) 29.0 % Meagher % (Auto) 8.2 % Eos % (Auto) 3.4 % Baso % (Auto) 0.4 % Neut # (Auto) 2.78 (1.40-6.50) K/uL Lymph # (Auto) 1.37 (1.20-3.40) K/uL [place] # (Auto) 0.39 (0.11-0.59) K/uL Eos # (Auto) 0.16 (0.00-0.50) K/uL Baso # (Auto) 0.02 (0.00-0.20) K/uL Immature Gran # (Auto) 0.01 (0.01-0.20) K/uL PT 10.9 (9.0-12.0) Seconds INR 1.0 (0.9-1.1) Sodium 141 (136-145) mmol/L Potassium 3.6 (3.5-5.1) mmol/L Chloride 105 (98-107) mmol/L Carbon Dioxide 30 (21-32) mmol/L Anion Gap 6 (3-11) BUN 11 (6-23) mg/dl Creatinine 0.75 (0.6-1.2) mg/dl Est Cr Clr Drug Dosing 73.4 ml/min Est GFR ( Amer) 95.6 ml/min Est GFR (Non-Af Amer) 82.5 ml/min BUN/Creatinine Ratio 14.7 (10-20) Glucose 97 (70-99(Fasting)) mg/dl Calcium 9.2 (8.6-10.3) mg/dl Magnesium 1.9 (1.7-2.4) mg/dl Total Bilirubin 1.1 H (0.2-1.0) mg/dl AST 18 (13-39) U/L ALT 15 (7-52) U/L Alkaline Phosphatase 75 (34-104) U/L Troponin I High Sens 5.1 (0-14) pg/ml Total Protein 6.8 (6.0-8.3) gm/dl Albumin 4.5 (3.4-5.0) gm/dl Globulin 2.3 L (2.5-4.0) gm/dl Albumin/Globulin Ratio 2.0 (0.9-2) Lipase 15 (11-82) U/L Urine Color Yellow Urine Appearance Clear (Clear) Urine pH 6.0 (4.5-7.5) Ur Specific [place] 1.007 (1.000-1.030) Urine Protein Negative (Negative) Urine Glucose (UA) Negative (Negative) Urine Ketones Negative (Negative) Urine Blood Negative (Negative) Urine Nitrite Negative (Negative) Urine Bilirubin Negative (Negative) Urine Urobilinogen Negative (Negative) Ur Leukocyte Esterase Negative (Negative) Adenovirus (PCR) Not Detected (NotDetected) B. pertussis DNA (PCR) Not Detected (NotDetected) B.parapertussis DNA PCR Not Detected (NotDetected) C. pneumoniae DNA (PCR) Not Detected (NotDetected) Coronavirus OC43 (PCR) Not Detected (NotDetected) Coronavirus HKU1 (PCR) Not Detected (NotDetected) Coronavirus 229E (PCR) Not Detected (NotDetected) SARS-CoV-2 (PCR) Not Detected (NotDetected) Coronavirus NL63 (PCR) Not Detected (NotDetected) Human Metapneumovir PCR Not Detected (NotDetected) Influenza Type A (PCR) Not Detected (NotDetected) Influenza Type B (PCR) Not Detected (NotDetected) M. pneumoniae (PCR) Not Detected (NotDetected) Parainfluenza 1 (PCR) Not Detected (NotDetected) Parainfluenza 2 (PCR) Not Detected (NotDetected) Parainfluenza 3 (PCR) Not Detected (NotDetected) Parainfluenza 4 (PCR) Not Detected (NotDetected) RSV (PCR) Not Detected (NotDetected) Entero/Rhino (PCR) Not Detected (NotDetected) Administered Medications Discontinued Medications Sodium Chloride (Nss) 1,000 mls @ 999 mls/hr IV .Q1H1M ONE Stop: 12/23/23 11:55 Last Infusion: 12/23/23 12:31 Dose: Infused Documented By: Admin: 12/23/23 11:14 Dose: 999 mls/hr Documented By: ROLAN Acetaminophen (Ofirmev) 1,000 mg in 100 mls @ 400 mls/hr IV NOW STA Stop: 12/23/23 11:41 Last Infusion: 12/23/23 12:31 Dose: Infused Documented By: Admin: 12/23/23 11:39 Dose: 400 mls/hr Documented By: ROLAN Ioversol (Optiray 320 125ml) 119 ml IV ONCE ONE Stop: 12/23/23 12:09 Last Admin: 12/23/23 12:05 Dose: 119 ml Documented By: WILLIS Lorazepam (Lorazepam 1 Mg/1 Ml Syr Ed Inj Use) 0.5 mg IV ONE STA Stop: 12/23/23 13:55 Last Admin: 12/23/23 14:00 Dose: 0.5 mg Documented By: ROLAN Ondansetron HCl (Ondansetron Inj 2 Mg/Ml 2 Ml Vial) 4 mg IV NOW STA Stop: 12/23/23 10:56 Last Admin: 12/23/23 11:15 Dose: 4 mg Documented By: ROLAN Imaging Data Radiologist's Impression: Head CTA 12/23/23 10:55 HEAD CTA HISTORY: dizziness; headache TECHNIQUE: Multiaxial CT images of the head were performed following the intravenous administration of contrast to evaluate the major cerebral vessels. 3D/MIP images were also obtained. Sagittal and coronal reformats were reviewed. A dose lowering technique was utilized adhering to the principles of ALARA. COMPARISON: None. FINDINGS: There is no mass, hematoma, midline shift, or acute infarct. Visualized intracranial internal carotid arteries, distal vertebral arteries, and basilar artery are widely patent. There is no significant stenosis, occlusion, or aneurysm seen within the bilateral ACAs, MCAs, or dry room attendant. The major dural venous sinuses are patent. IMPRESSION: No significant stenosis, occlusion, or aneurysm within the [place] of [place]. ACT 112: Negative or not required by law. Electronically signed by: Alexey Stewart M.D. 12/23/2023 12:27 PM Neck CTA 12/23/23 10:55 CT angio neck with con CLINICAL HISTORY: 68 years-old Female with dizziness; headache. Acute headache with strokelike symptoms COMPARISON STUDY: CTA head of same day TECHNIQUE: Following the IV administration of 119 mL of Optiray, CT angiogram of the neck was performed from the aortic arch to the skull base. Images are reviewed in the axial, sagittal, and coronal planes. 3-D MIPS images are created and assessed. IV contrast was administered without complication. All measurements were calculated based on NASCET criteria. A dose lowering technique was utilized adhering to the principles of ALARA. FINDINGS: Three-vessel morphology of the thoracic aortic arch. Patency of the innominate and image subclavian arteries. Mild atherosclerosis of the carotid bulbs without significant stenosis. Internal carotid arteries are patent. Dominant left vertebral artery. The vertebral arteries are widely patent. No aneurysm, dissection, high-grade stenosis or arterial occlusion. Lung apices are clear. No pneumothorax. Unremarkable soft tissues. No lymphadenopathy. No acute fracture. Mild mucosal thickening of the maxillary sinuses. Degenerative changes of the cervical spine with anterior plate and screw fusion hardware at C5-C6. Multilevel neural foraminal narrowing is suboptimally dilated by CT technique. IMPRESSION:Unremarkable CTA of the neck. ACT 112: Negative or not required by law. The above report was generated using voice recognition software. It may contain grammatical, syntax or spelling errors. Electronically signed by: Herson Silva M.D. 12/23/2023 12:[address] 12/23/23 10:56 CT head/brain wo con CLINICAL HISTORY: dizziness Technique: Contiguous axial CT images of the head were acquired from the base of the skull to the vertex without intravenous contrast administration. Images were viewed in brain, subdural and bone windows. Automated dose lowering techniques and/or adjustment according to patient size were utilized for this exam. Comparison: Comparison is made to CT head 07/07/2015 Findings: The ventricles, basal cisterns, and cerebral sulci are normal. There is no acute intracranial hemorrhage or evidence of acute territorial infarction. Neither mass effect, shift of the midline structures, nor abnormal extra-axial fluid collections are shown. Imaged portions of the paranasal sinuses and mastoid air cells are clear. The orbits appear normal. There are no acute fractures of the calvaria or scalp swelling. Impression: No acute intracranial hemorrhage, no evidence of acute territorial infarction or other acute intracranial disease process. ACT 112: Negative or not required by law. Electronically signed by: Danie Gamez M.D. 12/23/2023 12:36 PM Abdomen/Pelvis CT 12/23/23 11:[address] WITH IV CONTRAST HISTORY: Acute right upper quadrant abdominal pain with nausea, vomiting and diarrhea RUQ abdominal pain; vomiting, diarrhea TECHNIQUE: Multiaxial CT images of the abdomen and pelvis were performed following the IV administration of 119 cc of Optiray, A dose lowering technique was utilized adhering to the principles of ALARA. COMPARISON STUDY: CT abdomen and pelvis 07/11/2015, chest CT 11/19/2022. FINDINGS: Partially imaged breast implants. There is mild linear subsegmental bibasilar atelectasis versus scarring. 7 mm solid nodule within the basal right lower lobe on image 42 is new from the 2015 study however is unchanged from 11/19/2022. No free air. Unremarkable spleen, pancreas and adrenal glands. Gallbladder is within normal limits. No biliary ductal dilation. Scattered small cysts within the liver. Probable vascular shunt of the liver on image 129 series 8. The liver is mildly enlarged. There are 2 probable hemangiomata noted within the right hepatic lobe measuring up to 2.3 cm the hepatic dome on image 67 series 8. Patency of the hepatic and portal veins. Unremarkable kidneys without hydronephrosis. Probable small cyst of the superior pole right kidney. Unremarkable urinary bladder. The uterus appears surgically absent. Atherosclerosis of the aorta without aneurysm. No lymphadenopathy. Tiny fat filled umbilical hernia. Mild distal esophageal wall thickening with probable tiny hiatal hernia. There is no small bowel obstruction. Colonic diverticulosis without acute diverticulitis. Areas of circumferential wall thickening with mucosal hyperemia noted throughout the ascending and transverse colon with mild adjacent inflammatory stranding. Normal appendix. Scattered large and small bowel air-fluid levels. No acute fracture. IMPRESSION: 1. Findings suggestive of a mild infectious or inflammatory colitis involving the ascending and transverse colon. Probable mild associated ileus. 2. No bowel obstruction or pneumoperitoneum. 3. Normal appendix. 4. 7 mm solid nodule of the right lower lobe is unchanged from 11/19/2022. 5. Colonic diverticulosis. 6. Additional findings as above. ACT 112: Negative or not required by law. The above report was generated using voice recognition software. It may contain grammatical, syntax or spelling errors. Electronically signed by: Herson Silva M.D. 12/23/2023 12:40 PM Discharge Plan Visit Data Chief Complaint: Headache Stated Complaint: DIZZINESS, HEADACHES ED Provider: Christine Sam Discharge Problem: Headache, Dizziness, Ambulatory dysfunction, Colitis Forms Stand Alone Forms: [employer] Prescriptions Prescriptions: No Action metoprolol succinate 25 mg tablet extended release 24 hr 25 mg PO QAM Qty: 90 3RF rizatriptan [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] 10 mg tablet,disintegrating 10 mg PO Q2H PRN (Reason: migraine headache) Qty: 30 1RF Rx Instructions: do not exceed 3 doses per 24 hrs ( VERIFIED PAT CALL 07/26/22) escitalopram oxalate 20 mg tablet 20 mg PO QAM Qty: 30 4RF meclizine 25 mg tablet 25 mg PO BID PRN (Reason: dizziness) Qty: 30 0RF mesalamine 800 mg tablet,delayed release (DR/EC) 1,600 mg PO QAM MegaRed Advanced 6x Absorption 476-800 mg Capsule 1 cap PO QAM timolol maleate 0.25 % drops 1 drp OPB BID diclofenac sodium 75 mg tablet,delayed release (DR/EC) 75 mg PO DAILY PRN (Reason: Pain) Referrals Referrals: Cathie Bean MD [Primary Care Provider] -
[2023-12-23 11:41] LABS: Appearance Urine Clear (Clear); Bilirubin Urine Negative (Negative); Blood Urine Negative (Negative); Color Urine Yellow; Glucose Urine UA Negative (Negative); Ketones Urine Negative (Negative); Leukocyte Esterase Urine Negative (Negative); Nitrite Urine Negative (Negative); Protein Urine Negative (Negative); Specific Gravity Urine 1.007 (1.000-1.030); Urobilinogen Urine Negative (Negative)
[2023-12-23 11:55] LABS: Albumin Level 4.5 gm/dl (3.4-5.0); BUN Creatinine Ratio 14.7 (10-20); Bilirubin,Total 1.1 mg/dl (0.2-1.0); Calcium 9.2 mg/dl (8.6-10.3); Creatinine Clr Calc Pharmacy 73.4 ml/min; Est GFR (African American) 95.6 ml/min; Est GFR (Non-African American) 82.5 ml/min; Globulin 2.3 gm/dl (2.5-4.0); Magnesium 1.9 mg/dl (1.7-2.4); Potassium 3.6 mmol/L (3.5-5.1); Total Protein 6.8 gm/dl (6.0-8.3)
[2023-12-23 12:02] LABS: Troponin I High Sensitivity 5.1 pg/ml (0-14)
[2023-12-23] MEDS: OPTIRAY 320 125ml IV ONE (12:05)
[2023-12-23 12:11] LABS: Prothrombin Time 10.9 Seconds (9.0-12.0)
--- NOTE | 2023-12-23 12:29 | CT Scan Report ---
HEAD CTA HISTORY: dizziness; headache TECHNIQUE: Multiaxial CT images of the head were performed following the intravenous administration o f contrast to evaluate the major cerebral vessels. 3D/MIP images were also obtained. Sagittal and co zoran reformats were reviewed. A dose lowering technique was utilized adhering to the principles of A SONIA. COMPARISON: None. FINDINGS: There is no mass, hematoma, midline shift, or acute infarct. Visualized intracranial internal grinder set up operator al carotid arteries, distal vertebral arteries, and basilar artery are widely patent. There is no sig nificant stenosis, occlusion, or aneurysm seen within the bilateral ACAs, MCAs, or site manager. The major du ral venous sinuses are patent. IMPRESSION: No significant stenosis, occlusion, or aneurysm within the [place]. ACT 112: Negative or not required by law. Electronically signed by: Alexey Stewart M.D. 12/23/2023 12:27 PM
--- NOTE | 2023-12-23 12:38 | CT Scan Report ---
CT head/brain wo con CLINICAL HISTORY: dizziness Technique: Contiguous axial CT images of the head were acquired from the base of the skull to the letitia casie without intravenous contrast administration. Images were viewed in brain, subdural and [facility]. Automated dose lowering techniques and/or adjustment according to patient size were utilized for this exam. Comparison: Comparison is made to CT head 07/07/2015 Findings: The ventricles, basal cisterns, and cerebral sulci are normal. There is no acute intracranial hemorrh age or evidence of acute territorial infarction. Neither mass effect, shift of the midline structures , nor abnormal extra-axial fluid collections are shown. Imaged portions of the paranasal sinuses and mastoid air cells are clear. The orbits appear normal. There are no acute fractures of the calvaria or scalp swelling. Impression: No acute intracranial hemorrhage, no evidence of acute territorial infarction or other acute intracra nial disease process. ACT 112: Negative or not required by law. Electronically signed by: Danie Gamez M.D. 12/23/2023 12:36 PM
--- NOTE | 2023-12-23 12:42 | CT Scan Report ---
ABDOMEN AND PELVIS CT WITH IV CONTRAST HISTORY: Acute right upper quadrant abdominal pain with nausea, vomiting and diarrhea RUQ abdominal pain; vomiting, diarrhea TECHNIQUE: Multiaxial CT images of the abdomen and pelvis were performed following the IV administrat ion of 119 cc of Optiray, A dose lowering technique was utilized adhering to the principles of ALARA . COMPARISON STUDY: CT abdomen and pelvis 07/11/2015, chest CT 11/19/2022. FINDINGS: Partially imaged breast implants. There is mild linear subsegmental bibasilar atelectasis v ersus scarring. 7 mm solid nodule within the basal right lower lobe on image 42 is new from the 2016 study however is unchanged from 11/19/2022. No free air. Unremarkable spleen, pancreas and adrenal glands. Gallbladder is within normal limits. No biliary rosie maylin dilation. Scattered small cysts within the liver. Probable vascular shunt of the liver on image 1 29 series 8. The liver is mildly enlarged. There are 2 probable hemangiomata noted within the right h epatic lobe measuring up to 2.3 cm the hepatic dome on image 67 series 8. Patency of the hepatic and portal veins. Unremarkable kidneys without hydronephrosis. Probable small cyst of the superior pole right kidney. U nremarkable urinary bladder. The uterus appears surgically absent. Atherosclerosis of the aorta witho ut aneurysm. No lymphadenopathy. Tiny fat filled umbilical hernia. Mild distal esophageal wall thickening with probable tiny hiatal he rnia. There is no small bowel obstruction. Colonic diverticulosis without acute diverticulitis. Areas of circumferential wall thickening with mucosal hyperemia noted throughout the ascending and transve rse colon with mild adjacent inflammatory stranding. Normal appendix. Scattered large and small bowel air-fluid levels. No acute fracture. IMPRESSION: 1. Findings suggestive of a mild infectious or inflammatory colitis involving the ascending and trans verse colon. Probable mild associated ileus. 2. No bowel obstruction or pneumoperitoneum. 3. Normal appendix. 4. 7 mm solid nodule of the right lower lobe is unchanged from 11/19/2022. 5. Colonic diverticulosis. 6. Additional findings as above. ACT 112: Negative or not required by law. The above report was generated using voice recognition software. It may contain grammatical, syntax o r spelling errors. Electronically signed by: Herson Silva M.D. 12/23/2023 12:40 PM
--- NOTE | 2023-12-23 12:44 | CT Scan Report ---
CT angio neck with con CLINICAL HISTORY: 68 years-old Female with dizziness; headache. Acute headache with strokelike sym ptoms COMPARISON STUDY: CTA head of same day TECHNIQUE: Following the IV administration of 119 mL of Optiray, CT angiogram of the neck was perform ed from the aortic arch to the skull base. Images are reviewed in the axial, sagittal, and coronal pl anes. 3-D MIPS images are created and assessed. IV contrast was administered without complication. Al l measurements were calculated based on NASCET criteria. A dose lowering technique was utilized adhe ring to the principles of ALARA. FINDINGS: Three-vessel morphology of the thoracic aortic arch. Patency of the innominate and image subclavian a rteries. Mild atherosclerosis of the carotid bulbs without significant stenosis. Internal carotid art eries are patent. Dominant left vertebral artery. The vertebral arteries are widely patent. No aneury sm, dissection, high-grade stenosis or arterial occlusion. Lung apices are clear. No pneumothorax. Unremarkable soft tissues. No lymphadenopathy. No acute fract ure. Mild mucosal thickening of the maxillary sinuses. Degenerative changes of the cervical spine wit h anterior plate and screw fusion hardware at C5-C6. Multilevel neural foraminal narrowing is subopti kinjal dilated by CT technique. IMPRESSION:Unremarkable CTA of the neck. ACT 112: Negative or not required by law. The above report was generated using voice recognition software. It may contain grammatical, syntax o r spelling errors. Electronically signed by: Herson Silva M.D. 12/23/2023 12:43 PM
[2023-12-23 13:38] LABS: Adenovirus PCR Not Detected (NotDetected); Bordetella parapertussis PCR Not Detected (NotDetected); Bordetella pertussis PCR Not Detected (NotDetected); Chlamydia pneumoniae PCR Not Detected (NotDetected); Coronavirus 229E PCR Not Detected (NotDetected); Coronavirus CoV-2 (COVID19)PCR Not Detected (NotDetected); Coronavirus HKU1 PCR Not Detected (NotDetected); Coronavirus NL63 PCR Not Detected (NotDetected); Coronavirus OC43PCR Not Detected (NotDetected); Human Metapneumovirus PCR Not Detected (NotDetected); Influenza A PCR Not Detected (NotDetected); Influenza B PCR Not Detected (NotDetected); Mycoplasma pneumoniae PCR Not Detected (NotDetected); Parainfluenza Virus 1 PCR Not Detected (NotDetected); Parainfluenza Virus 2 PCR Not Detected (NotDetected); Parainfluenza Virus 3 PCR Not Detected (NotDetected); Parainfluenza Virus 4 PCR Not Detected (NotDetected); Respiratory Syncytial VirusPCR Not Detected (NotDetected); Rhinovirus/Enterovirus PCR Not Detected (NotDetected)
[2023-12-23] MEDS: LORazepam 1 MG/1 ML SYR ED Inj Use IV STA (14:00)
--- NOTE | 2023-12-23 16:44 | History & Physical Report ---
Date of Service December 23, 2023 Assessment & Plan (1) Stroke-like symptoms: Plan: Patient developed nausea and vomiting Friday night, then woke up Friday with intractable dizziness and headache Hx of vertigo, but patient reports that prior episodes of not lingered like this She feels constantly off balance as if she is "drunk when walking" No recent injuries to head or neck No facial droop, slurred speech, or unilateral deficits reported DDx at this time includes cerebellar stroke, intractable vertigo, and dehydration secondary to GI illness (among other etiologies) Head CT without acute findings Head/neck CTA without acute findings Brain MRI ordered, pending Will hold off on echocardiogram for now (pending brain MRI) A.m. CBC, BMP, A1c, mag (2) Ambulatory dysfunction: Plan: Secondary to dizziness and feeling off balance PT/OT consulted for 12/23 (post MRI) Fall precautions (3) Colitis: Plan: Nausea and vomiting on Wednesday 12/20 Patient also endorses intermittent right-sided abdominal pain A/P CT revealed mild infectious colitis Supportive care Acetaminophen as needed Zofran as needed for nausea/vomiting (4) Dizziness: Plan: Meclizine 25 mg p.o. BID PRN Plan Disposition: Obs - Admit to PCU telemetry Full code Regular diet as tolerated VTE PPx: TEDs History of Present Illness Chief Complaint: Headache, dizziness Primary Care Provider: Cathie Bean MD Bianca is a pleasant 68-year-old female with PMH of migraines, Takotsubo cardiomy opathy, stress urinary incontinence, HTN, arthritis, ulcerative colitis, depression, anxiety, alcohol use, bilateral mastectomy, and benign positional vertigo. She presented on 12/22 for dizziness, lightheadedness, and N/V/D that began on Friday evening. Patient an acute onset of nausea and vomiting Friday night, then woke up Friday with headache and dizziness. She described as dizziness at rest like the "room spinning". She does have a history of vertigo, but this feels different than past episodes of vertigo as they did not linger like this one. Patient reports that she has felt "off balance" since Friday like she is drunk when walking. This is very different for her when compared to past experiences vertigo. Patient saw PT on Friday 12/22 and became very tired with eye movements (vertical saccades). No recent injuries to the head or neck. No history of concussions. No history of stroke. Patient denies facial droop, slurred speech, and unilateral deficits. Patient took some of her regular morning medications including metoprolol, mesalamine, and escitalopram. Patient tried taking meclizine for the first time yesterday on 12/21, but reports that this did not make a difference. No sick contacts, although she does report her grandchildren are occasionally sick (but not over the past few weeks). She denies any recent change in diet, and reports she de nies any anything strange over the weekend. History of sinus infections. Patient reports that her headache is intermittent and that she is been taking ibuprofen, which helps for short period of time. The pain is behind both eyes bilaterally. She does have history of migraines, but reports this feels different. Patient has been tolerating solids and liquids since Friday night, but has mainly been sticking to crackers and liquid Jell-O. She denies smoking, tobacco use, and recent alcohol use. ED course: Lorazepam 0.5 mg IV Acetaminophen 1000 mg IV Zofran 4 mg IV NSS 1000 mL IV ROS: Patient endorses chills, nausea/vomiting on Friday night, [place] and dizziness Friday morning that is intractable, RUQ pain intermittent (under rib cage), abdominal cramping, diarrhea (started friday), lower back pain (intense over the weekend). Patient denies fever, night-sweats, chest pain, chest pressure, SOB, chest palpitations, blood in stool, changes in urinary habits, or numbness/tingling in the arms or legs. Allergies Allergy/AdvReac Type Severity Reaction Status Date / Time nitrofurantoin Allergy Intermediate ITCHING Verified 12/23/23 12:47 [From Macrobid] Sulfa (Sulfonamide Allergy Unknown PT NOT Verified 12/23/23 12:47 Antibiotics) SURE, THINKS RASH Home Medications Medication Instructions Recorded Confirmed Type mesalamine 800 mg tablet,delayed 1,600 mg PO QAM 10/22/21 12/23/23 History release omega 3-dha and epa 476 mg-fish 1 cap PO QAM 10/22/21 12/23/23 History oil 800 mg capsule (MegaRed Advanced 6x Absorption) metoprolol succinate 25 mg 25 mg PO QAM #90 tabs 03/17/23 12/23/23 Rx tablet,extended release 24 hr rizatriptan 10 mg disintegrating 10 mg PO Q2H PRN migraine headache 04/30/23 12/23/23 Rx tablet (Maxalt-PUSH 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 HELPER) #30 tabs escitalopram oxalate 20 mg tablet 20 mg PO QAM #30 tabs 09/26/23 12/23/23 Rx meclizine 25 mg tablet 25 mg PO BID PRN dizziness #30 tabs 11/17/23 12/23/23 Rx diclofenac sodium 75 mg 75 mg PO DAILY PRN Pain 12/23/23 12/23/23 History tablet,delayed release timolol maleate 0.25 % eye drops 1 drp OPB BID 12/23/23 12/23/23 History Past Med/Surg History Problem List (Updated 12/23/23 @ 17:32 by Alexey Phillips PA-C) Stroke-like symptoms Colitis (Acute) Ambulatory dysfunction (Acute) Dizziness (Acute) Headache (Acute) Cough (Acute) H/O bilateral breast implants History of bilateral mastectomy DCIS 2009 Benign positional vertigo Thyroid nodule MONITOR Migraines (Chronic) Lumbar disc herniation (Chronic) History of removal of cyst History of knee surgery History of hysterectomy Arthritis (Chronic) Pulmonary nodule (Chronic) Joint inflammation of left hand and wrist Left wrist tendonitis Ulnar neuritis Lateral meniscal tear Hot flashes due to menopause EtOH dependence Anxiety Stress-induced cardiomyopathy Ulcerative colitis Depression Cyst of ovary, right De Quervain's tenosynovitis Diverticulosis of colon Insomnia Long-term use of hydroxychloroquine Ovarian mass, left BOOGIE (stress urinary incontinence, female) Vitamin D deficiency Takotsubo cardiomyopathy (09/2021) Encounter for examination following treatment at hospital Encounter for screening and preventative care Screening for skin cancer Fatigue CMC arthritis Osteoarthritis of right knee HTN (hypertension) Medical History History of colon polyps History of sleep study Inflammatory bowel disease History of breast cancer Hot flashes History of depression Borderline high blood pressure Takotsubo syndrome Retinal detachment, left Anaplasmosis Wrist pain, left Surgical History History of cardiac cath History of endoscopy History of colonoscopy History of arthroscopy of right knee H/O thyroid cyst History of gynecologic surgery History of gynecologic surgery H/O dilation and curettage S/P endometrial ablation S/P tooth extraction H/O sinus surgery S/P tonsillectomy History of LAVH History of hand surgery History of eye surgery History of fusion of cervical spine Family History Grandfather (Maternal) Myocardial infarction Mother Lung cancer Denies family history of Ovarian cancer Prostate cancer Breast cancer Colorectal cancer Social History Smoking Status: Never smoker Second Hand Exposure: No; Do You Dip or Chew Tobacco: No; Hx Alcohol Use: Yes (CASUAL) Alcohol type: beer Hx Substance Use: No Preferred Language: [place] Communication Ability: Effective Hearing Ability: Use of Hearing Aid Fashion Director Required: No Beliefs That Will Affect Care: None marital status: Current Living Situation: Spouse current occupational status: employed 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- [employer] How many Children do You have: 1 Feels Safe at Home: Yes Childhood Exposure to Second-Hand Smoke: Yes Diet: regular caffeine: Yes Dental Care, Regularly: Yes Physical Activity Frequency: Daily Seatbelt Use: always Sunscreen Use: Yes Assistive Devices: Glasses Review of Systems Review of Systems: See HPI above Physical Exam Physical Exam: General: no acute distress; pleasant affect; non-toxic appearing; well- nourished; cooperative; SpO2 97% on RA HEENT: normocephalic, atraumatic; no scleral icterus; PERRLA w/ EOMs intact; negative nystagmus; vision and hearing grossly intact; patient demonstrates to go to smile, frown, and lift eyebrows without unilateral deficits Neck: supple; no lymphadenopathy; trachea midline; patient demonstrates ability to shrug shoulders against resistance without difficulty or unilateral deficits; patient reports dizziness and left posterior neck pain with gentle rotation of the neck right and left Skin: warm, dry without signs of tenting; no cyanosis; no rashes, bruising, lesions, or erythema noted CV: chest wall NTP; RRR; S1/S2 normal; no murmurs/rubs/gallops; pulses intact and symmetric at radial, DP, and PT Lungs: no acute respiratory distress; symmetrical chest wall expansion; clear breath sounds across all lung hanley w/o adventitious sounds; no wheezing ABD: Soft,; right upper and lower quadrants are mildly TTP; BS present; no rebound/guarding; no distention MSK: no tics or fasciculations; no edema noted in the LEs b/l, nonerythematous; 5/5 warehouse 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 Neuro: A&Ox3; normal mood and affect; fluent speech; no focal deficits; sensation grossly intact and symmetric in the UEs/face bilaterally, she reports mildly diminished sensation in the left lower extremity when compared to the right via light touch Results & Data Results & Data Vital Signs (Past 12 Hours) Vital Signs Temp Pulse Pulse Resp BP BP Pulse Ox 12/23/23 16:06 54 L 12 145/83 H 95 12/23/23 15:51 48 L 15 96 12/23/23 15:48 52 L 13 96 12/23/23 15:30 50 L 15 95 12/23/23 15:27 52 L 15 94 12/23/23 15:12 52 L 14 96 12/23/23 15:03 50 L 16 95 12/23/23 15:00 141/71 H 12/23/23 15:00 65 18 141/71 H 99 12/23/23 14:39 52 L 17 95 12/23/23 14:00 167/69 H 12/23/23 13:48 60 20 94 12/23/23 13:45 144/76 H 12/23/23 13:45 144/76 H 12/23/23 13:33 51 L 17 98 12/23/23 13:30 155/76 H 12/23/23 13:30 155/76 H 12/23/23 13:30 155/76 H 12/23/23 13:30 52 L 12 98 12/23/23 13:18 71 15 12/23/23 13:15 167/71 H 12/23/23 13:15 167/71 H 12/23/23 13:06 56 L 13 97 12/23/23 13:00 46 L 10 L 98 12/23/23 13:00 172/84 H 12/23/23 13:00 172/84 H 12/23/23 13:00 54 L 19 174/84 H 99 12/23/23 12:57 51 L 15 98 12/23/23 12:55 152/74 H 12/23/23 12:55 152/74 H 12/23/23 12:45 61 16 98 12/23/23 12:42 57 L 14 12/23/23 12:36 53 L 17 12/23/23 12:27 52 L 12/23/23 12:24 54 L 11 L 12/23/23 11:54 48 L 13 97 12/23/23 11:45 47 L 14 99 12/23/23 11:45 154/84 H 12/23/23 11:42 50 L 15 99 12/23/23 11:33 51 L 12 100 12/23/23 11:30 180/85 H 12/23/23 11:24 51 L 16 12/23/23 11:21 60 15 12/23/23 11:20 54 L 17 98 12/23/23 11:17 60 19 188/85 H 98 12/23/23 10:52 36.8 C 58 L 20 181/78 H 98 O2 Del Method 12/23/23 16:06 12/23/23 15:51 12/23/23 15:48 12/23/23 15:30 12/23/23 15:27 12/23/23 15:12 12/23/23 15:03 12/23/23 15:00 12/23/23 15:00 Room Air 12/23/23 14:39 12/23/23 14:00 12/23/23 13:48 12/23/23 13:45 12/23/23 13:45 12/23/23 13:33 12/23/23 13:30 12/23/23 13:30 12/23/23 13:30 12/23/23 13:30 12/23/23 13:18 12/23/23 13:15 12/23/23 13:15 12/23/23 13:06 12/23/23 13:00 12/23/23 13:00 12/23/23 13:00 12/23/23 13:00 Room Air 12/23/23 12:57 12/23/23 12:55 12/23/23 12:55 12/23/23 12:45 12/23/23 12:42 12/23/23 12:36 12/23/23 12:27 12/23/23 12:24 12/23/23 11:54 12/23/23 11:45 12/23/23 11:45 12/23/23 11:42 12/23/23 11:33 12/23/23 11:30 12/23/23 11:24 12/23/23 11:21 12/23/23 11:20 Room Air 12/23/23 11:17 Room Air 12/23/23 10:52 Room Air Laboratory Results Abnormal lab results 12/23/23 Range/Units 11:14 WBC 4.73 L (4.8-10.8) K/ul Total Bilirubin 1.1 H (0.2-1.0) mg/dl Globulin 2.3 L (2.5-4.0) gm/dl Diagnostic Findings Head CTA 12/23/23 10:55 HEAD CTA HISTORY: dizziness; headache TECHNIQUE: Multiaxial CT images of the head were performed following the int ravenous administration of contrast to evaluate the major cerebral vessels. 3D/MIP images were also obtained. Sagittal and coronal reformats were reviewed. A dose lowering technique was utilized adhering to the principles of ALARA. COMPARISON: None. FINDINGS: There is no mass, hematoma, midline shift, or acute infarct. Visualized intracranial internal carotid arteries, distal vertebral arteries, and basilar artery are widely patent. There is no significant stenosis, occlusion, or aneurysm seen within the bilateral ACAs, MCAs, or counter clerk tractor parts. The major dural venous sinuses are patent. IMPRESSION: No significant stenosis, occlusion, or aneurysm within the [place] of [place]. ACT 112: Negative or not required by law. Electronically signed by: Alexey Stewart M.D. 12/23/2023 12:27 PM Neck CTA 12/23/23 10:55 CT angio neck with con CLINICAL HISTORY: 68 years-old Female with dizziness; headache. Acute headache with strokelike symptoms COMPARISON STUDY: CTA head of same day TECHNIQUE: Following the IV administration of 119 mL of Optiray, CT angiogram of the neck was performed from the aortic arch to the skull base. Images are reviewed in the axial, sagittal, and coronal planes. 3-D MIPS images are created and assessed. IV contrast was administered without complication. All measurements were calculated based on NASCET criteria. A dose lowering technique was utilized adhering to the principles of ALARA. FINDINGS: Three-vessel morphology of the thoracic aortic arch. Patency of the innominate and image subclavian arteries. Mild atherosclerosis of the carotid bulbs without significant stenosis. Internal carotid arteries are patent. Dominant left vertebral artery. The vertebral arteries are widely patent. No aneurysm, dissect ion, high-grade stenosis or arterial occlusion. Lung apices are clear. No pneumothorax. Unremarkable soft tissues. No lymphadenopathy. No acute fracture. Mild mucosal thickening of the maxillary sin uses. Degenerative changes of the cervical spine with anterior plate and screw fusion hardware at C5-C6. Multilevel neural foraminal narrowing is suboptimally dilated by CT technique. IMPRESSION:Unremarkable CTA of the neck. ACT 112: Negative or not required by law. The above report was generated using voice recognition software. It may contain grammatical, syntax or spelling errors. Electronically signed by: Herson Silva M.D. 12/23/2023 12:[address] 12/23/23 10:56 CT head/brain wo con CLINICAL HISTORY: dizziness Technique: Contiguous axial CT images of the head were acquired from the base of the skull to the vertex without intravenous contrast administration. Images were viewed in brain, subdural and bone windows. Automated dose lowering techniques and/or adjustment according to patient size were utilized for this exam. Comparison: Comparison is made to CT head 07/07/2015 Findings: The ventricles, basal cisterns, and cerebral sulci are normal. There is no acute intracranial hemorrhage or evidence of acute territorial infarction. Neither mass effect, shift of the midline structures, nor abnormal extra-axial fluid collections are shown. Imaged portions of the paranasal sinuses and mastoid air cells are clear. The orbits appear normal. There are no acute fractures of the calvaria or scalp swelling. Impression: No acute intracranial hemorrhage, no evidence of acute territorial infarction or other acute intracranial disease process. ACT 112: Negative or not required by law. Electronically signed by: Danie Gamez M.D. 12/23/2023 12:36 PM Abdomen/Pelvis CT 12/23/23 11:[address] WITH IV CONTRAST HISTORY: Acute right upper quadrant abdominal pain with nausea, vomiting and diarrhea RUQ abdominal pain; vomiting, diarrhea TECHNIQUE: Multiaxial CT images of the abdomen and pelvis were performed following the IV administration of 119 cc of Optiray, A dose lowering technique was utilized adhering to the principles of ALARA. COMPARISON STUDY: CT abdomen and pelvis 07/11/2015, chest CT 11/19/2022. FINDINGS: Partially imaged breast implants. There is mild linear subsegmental bibasilar atelectasis versus scarring. 7 mm solid nodule within the basal right lower lobe on image 42 is new from the 2016 study however is unchanged from 11/19/2022. No free air. Unremarkable spleen, pancreas and adrenal glands. Gallbladder is within normal limits. No biliary ductal dilation. Scattered small cysts within the liver. Probable vascular shunt of the liver on image 129 series 8. The liver is mildly enlarged. There are 2 probable hemangiomata noted within the right hepatic lobe measuring up to 2.3 cm the hepatic dome on image 67 series 8. Patency of the hepatic and portal veins. Unremarkable kidneys without hydronephrosis. Probable small cyst of the superior pole right kidney. Unremarkable urinary bladder. The uterus appears surgically absent. Atherosclerosis of the aorta without aneurysm. No lymphadenopathy. Tiny fat filled umbilical hernia. Mild distal esophageal wall thickening with probable tiny hiatal hernia. There is no small bowel obstruction. Colonic diverticulosis without acute diverticulitis. Areas of circumferential wall thickening with mucosal hyperemia noted throughout the ascending and transverse colon with mild adjacent inflammatory stranding. Normal appendix. Scattered large and small bowel air-fluid levels. No acute fracture. IMPRESSION: 1. Findings suggestive of a mild infectious or inflammatory colitis involving the ascending and transverse colon. Probable mild associated ileus. 2. No bowel obstruction or pneumoperitoneum. 3. Normal appendix. 4. 7 mm solid nodule of the right lower lobe is unchanged from 11/19/2022. 5. Colonic diverticulosis. 6. Additional findings as above. ACT 112: Negative or not required by law. The above report was generated using voice recognition software. It may contain grammatical, syntax or spelling errors. Electronically signed by: Herson Silva M.D. 12/23/2023 12:40 PM ECG Additional Comments: ECG revealed sinus bradycardia at 59 bpm; QTc 415 Code Status & VTE Plan Code Status Full code VTE Prophylaxis Plan VTE Prophylaxis will be ordered: Yes Supervising Physician Co-Signing Physician Notes I personally saw and examined the patient. I independently reviewed the labs, EKG, imaging, problem list, medication list, past medical history and family history. I verified all pat points and agree with Alexey Phillips PA-C with the following exceptions and/or additions: Friday nausea, diarrhea. [place] still there. Woke up on Friday with dizziness. Feels unbalanced. Had vertigo previously and seeing physical therapist Get out of bed and stand for a couple of secons and would go away. Did Epleys manouver today and felt 110% better. Last three weeks. Today did not do much but didn't want to make it worse. and made her nauseaous today. With this dizziness feels just when turning head in bed. Could get out of bed before. This one hasn't gone away since yesterday morning. Eyes not having nystagmus before. Just started 6 months. Meclizine did not help PG Care Time/CCT Total # of Minutes Spent Total Time Spent with Patient: Total time spent is greater than 50% in coordination of care (as documented) at patient's floor/unit and/or counseling patient: Coding [place] [address] INT INP/OBS CARE 3/75MIN Patient Type Established Medical Decision Making High Complexity Diagnoses Stroke-like symptoms R29.90 Ambulatory dysfunction R26.2 Colitis K52.9 Dizziness R42
--- NOTE | 2023-12-23 18:30 | Magnetic Resonance Report ---
Brain MRI WITHOUT CONTRAST HISTORY: dizziness TECHNIQUE: Multiplanar multisequence MRI of the brain was performed without the use of contrast. COMPARISON STUDY: Head CT 12/23/2023. FINDINGS: There is no mass, hematoma, midline shift, or acute infarct. The paranasal sinuses are shukri r. The mastoid air cells are clear. The ventricles and sulci demonstrate mild age-related involutiona l changes. Scattered foci of T2 hyperintensity seen within the periventricular and subcortical white matter are nonspecific but suggestive of mild microvascular ischemic changes. The major vascular flow voids at the skull base are well-maintained. Prior bilateral lens replacement. Mild mucosal thickeni ng within the maxillary sinuses. No fluid levels within the paranasal sinuses. There are few punctate foci of susceptibility artifact within the left cerebellar hemisphere. This is nonspecific but could represent small foci of calcification or old hemosiderin. IMPRESSION: No acute infarct or intracranial hemorrhage. ACT 112: Negative or not required by law. Electronically signed by: Alexey Stewart M.D. 12/23/2023 6:28 PM
[2023-12-23] MEDS ORDERED: MECLIZINE HCL 25 MG TAB PO PRN (19:33)
[2023-12-23] MEDS: diazePAM 2 MG TABLET PO STA (19:58)
[2023-12-23] MEDS: ONDANSETRON INJ 2 MG/ML 2 ML VIAL IV PRN (20:27)
--- NOTE | 2023-12-23 20:56 | Electrocardiogram Report ---
Test Reason : Blood Pressure : / mmHG Vent. Rate : 059 BPM Atrial Rate : 059 BPM P-R Int : 174 ms QRS Dur : 086 ms QT Int : 420 ms P-R-T Axes : 046 058 064 degrees QTc Int : 415 ms Sinus bradycardia Otherwise normal ECG When compared with ECG of 24-OCT-2021 05:54, T wave inversion no longer evident in Inferior leads T wave inversion no longer evident in Anterolateral leads QT has shortened Confirmed by Jersey Russell ([id number]) on 12/23/2023 8:55:44 PM Referred By: REFERRED SELF Confirmed By:Jersey Russell
[2023-12-24] MEDS: ACETAMINOPHEN 325 MG TAB PO PRN (04:11)
[2023-12-24 04:25] LABS: Basophils # (auto) 0.01 K/uL (0.00-0.20); Basophils % (auto) 0.3 %; Eosinophils # (auto) 0.15 K/uL (0.00-0.50); Hematocrit (blood only) 36.5 % (37.0-47.0); Hemoglobin 11.9 g/dl (12.0-16.0); Immature Granulocytes # (auto) 0.01 K/uL (0.01-0.20); Immature Granulocytes % (auto) 0.3 %; Lymphocytes # (auto) 1.42 K/uL (1.20-3.40); Lymphocytes % (auto) 38.2 %; Mean Corpuscular Hemoglobin 31.7 pg (25.0-34.0); Mean Corpuscular Hgb Conc 32.6 g/dL (32.0-36.0); Mean Corpuscular Volume 97.3 fL (80.0-100.0); Mean Platelet Volume 10.1 fL (9.4-12.4); Monocytes # (auto) 0.34 K/uL (0.11-0.59); Monocytes % (auto) 9.1 %; Neutrophils # (auto) 1.79 K/uL (1.40-6.50); Neutrophils % (auto) 48.1 %; Platelet Count 167 K/uL (130-400); RDW Coefficient of Variation 12.1 % (11.5-14.5); RDW Standard Deviation 43.3 fL (36.4-46.3); Red Blood Count 3.75 M/uL (4.20-5.40); White Blood Count 3.72 K/ul (4.8-10.8)
[2023-12-24 04:38] LABS: BUN Creatinine Ratio 14.5 (10-20); Calcium 8.5 mg/dl (8.6-10.3); Creatinine Clr Calc Pharmacy 72.5 ml/min; Est GFR (African American) 94.1 ml/min; Est GFR (Non-African American) 81.2 ml/min; Magnesium 1.8 mg/dl (1.7-2.4); Potassium 3.7 mmol/L (3.5-5.1)
[2023-12-24] MEDS: IBUPROFEN 600 MG TAB PO STA (07:50)
[2023-12-24 08:12] LABS: Estimated Average Glucose 114 mg/dl; Hemoglobin A1C 5.6 % (4.5-5.6)
[2023-12-24] MEDS: ESCITALOPRAM OXALATE 20 MG TAB PO SCH (08:31)
[2023-12-24] MEDS: METOPROLOL SUCC 25MG EXT REL TAB PO SCH (08:31)
[2023-12-24] MEDS: MESALAMINE 800 MG TABCR PO SCH (08:31)
--- NOTE | 2023-12-24 12:59 | Discharge Summary ---
Date of Service December 24, 2023 Admission HPI Per Admitting Provider Bianca is a pleasant 68-year-old female with PMH of migraines, Takotsubo cardiomyopathy, stress urinary incontinence, HTN, arthritis, ulcerative colitis, depression, anxiety, alcohol use, bilateral mastectomy, and benign positional vertigo. She presented on 12/22 for dizziness, lightheadedness, and N/V/D that began on Friday evening. Patient an acute onset of nausea and vomiting Friday night, then woke up Friday with headache and dizziness. She described as dizziness at rest like the "room spinning". She does have a history of vertigo, but this feels different than past episodes of vertigo as they did not linger like this one. Patient reports that she has felt "off balance" since Friday like she is drunk when walking. This is very different for her when compared to past experiences vertigo. Patient saw PT on Friday 12/22 and became very tired with eye movements (vertical saccades). No recent injuries to the head or neck. No history of concussions. No history of stroke. Patient de nies facial droop, slurred speech, and unilateral deficits. Patient took some of her regular morning medications including metoprolol, mesalamine, and escitalopram. Patient tried taking meclizine for the first time yesterday on 12/21, but reports that this did not make a difference. No sick contacts, although she does report her grandchildren are occasionally sick (but not over the past few weeks). She denies any recent change in diet, and reports she denies any anything strange over the weekend. History of sinus infections. Patient reports that her headache is intermittent and that she is been taking ibuprofen, which helps for short period of time. The pain is behind both eyes bilaterally. She does have history of migraines, but reports this feels different. Patient has been tolerating solids and liquids since Friday night, but has mainly been sticking to crackers and liquid Jell-O. She denies smoking, tobacco use, and recent alcohol use. ED course: Lorazepam 0.5 mg IV Acetaminophen 1000 mg IV Zofran 4 mg IV NSS 1000 mL IV ROS: Patient endorses chills, nausea/vomiting on Friday night, HATFIELD and dizziness Friday morning that is intractable, RUQ pain intermittent (under rib cage), abdominal cramping, diarrhea (started friday night), lower back pain (intense over the weekend). Patient denies fever, night-sweats, chest pain, chest pressure, SOB, chest palpitations, blood in stool, changes in urinary habits, or numbness/tingling in the arms or legs. Admission Exam Per Admitting Provider General: no acute distress; pleasant affect; non-toxic appearing; well- nourished; cooperative; SpO2 97% on RA HEENT: normocephalic, atraumatic; no scleral icterus; PERRLA w/ EOMs intact; negative nystagmus; vision and hearing grossly intact; patient demonstrates to go to smile, frown, and lift eyebrows without unilateral deficits Neck: supple; no lymphadenopathy; trachea midline; patient demonstrates ability to shrug shoulders against resistance without difficulty or unilateral deficits; patient reports dizziness and left posterior neck pain with gentle rotation of the neck right and left Skin: warm, dry without signs of tenting; no cyanosis; no rashes, bruising, lesions, or erythema noted CV: chest wall NTP; RRR; S1/S2 normal; no murmurs/rubs/gallops; pulses intact and symmetric at radial, DP, and PT Lungs: no acute respiratory distress; symmetrical chest wall expansion; clear breath sounds across all lung hanley w/o adventitious sounds; no wheezing ABD: Soft,; right upper and lower quadrants are mildly TTP; BS present; no rebound/guarding; no distention MSK: no tics or fasciculations; no edema noted in the LEs b/l, nonerythematous; 5/5 clothing examiner strength bilaterally Neuro: A&Ox3; normal mood and affect; fluent speech; no focal deficits; sensation grossly intact and symmetric in the UEs/face bilaterally, she reports mildly diminished sensation in the left lower extremity when compared to the right via light touch Principal Diagnosis Dizziness, headache Discharge Exam Constitutional WD/WN, vitals as above Eyes PERRL, conjunctivae normal, anicteric sclerae Respiratory normal respiratory effort, lungs clear to auscultation Cardiovascular RRR, no murmur, no edema Skin no rashes, warm and dry Psychiatric A+Ox3, euthymic affect Discharge Data Allergies Allergy/AdvReac Type Severity Reaction Status Date / Time nitrofurantoin Allergy Intermediate ITCHING Verified 12/23/23 12:47 [From Macrobid] Sulfa (Sulfonamide Allergy Unknown PT NOT Verified 12/23/23 12:47 Antibiotics) SURE, THINKS RASH Consultations 12/23/23 15:54 ED Decision to Admit Stat Ordered Studies Head CTA 12/23/23 10:55 HEAD CTA HISTORY: dizziness; headache TECHNIQUE: Multiaxial CT images of the head were performed following the intravenous administration of contrast to evaluate the major cerebral vessels. 3D/MIP images were also obtained. Sagittal and coronal reformats were reviewed. A dose lowering technique was utilized adhering to the principles of ALARA. COMPARISON: None. FINDINGS: There is no mass, hematoma, midline shift, or acute infarct. Visualized intracranial internal carotid arteries, distal vertebral arteries, and basilar artery are widely patent. There is no significant stenosis, occlusion, or aneurysm seen within the bilateral ACAs, MCAs, or interventional cardiologist. The major dural venous sinuses are patent. IMPRESSION: No significant stenosis, occlusion, or aneurysm within the [place] of [place]. ACT 112: Negative or not required by law. Electronically signed by: Alexey Stewart M.D. 12/23/2023 12:27 PM Neck CTA 12/23/23 10:55 CT angio neck with con CLINICAL HISTORY: 68 years-old Female with dizziness; headache. Acute headache with strokelike symptoms COMPARISON STUDY: CTA head of same day TECHNIQUE: Following the IV administration of 119 mL of Optiray, CT angiogram of the neck was performed from the aortic arch to the skull base. Images are reviewed in the axial, sagittal, and coronal planes. 3-D MIPS images are created and assessed. IV contrast was administered without complication. All measurements were calculated based on NASCET criteria. A dose lowering technique was utilized adhering to the principles of ALARA. FINDINGS: Three-vessel morphology of the thoracic aortic arch. Patency of the innominate and image subclavian arteries. Mild atherosclerosis of the carotid bulbs without significant stenosis. Internal carotid arteries are patent. Dominant left vertebral artery. The vertebral arteries are widely patent. No aneurysm, dissection, high-grade stenosis or arterial occlusion. Lung apices are clear. No pneumothorax. Unremarkable soft tissues. No lymphadenopathy. No acute fracture. Mild mucosal thickening of the maxillary sinuses. Degenerative changes of the cervical spine with anterior plate and screw fusion hardware at C5-C6. Multilevel neural foraminal narrowing is suboptimally dilated by CT technique. IMPRESSION:Unremarkable CTA of the neck. ACT 112: Negative or not required by law. The above report was generated using voice recognition software. It may contain grammatical, syntax or spelling errors. Electronically signed by: Herson Silva M.D. 12/23/2023 12:[address] 12/23/23 10:56 CT head/brain wo con CLINICAL HISTORY: dizziness Technique: Contiguous axial CT images of the head were acquired from the base of the skull to the vertex without intravenous contrast administration. Images were viewed in brain, subdural and bone windows. Automated dose lowering techniques and/or adjustment according to patient size were utilized for this exam. Comparison: Comparison is made to CT head 07/07/2015 Findings: The ventricles, basal cisterns, and cerebral sulci are normal. There is no acute intracranial hemorrhage or evidence of acute territorial infarction. Neither mass effect, shift of the midline structures, nor abnormal extra-axial fluid collections are shown. Imaged portions of the paranasal sinuses and mastoid air cells are clear. The orbits appear normal. There are no acute fractures of the calvaria or scalp swelling. Impression: No acute intracranial hemorrhage, no evidence of acute territorial infarction or other acute intracranial disease process. ACT 112: Negative or not required by law. Electronically signed by: Danie Gamez M.D. 12/23/2023 12:36 PM Abdomen/Pelvis CT 12/23/23 11:[address] WITH IV CONTRAST HISTORY: Acute right upper quadrant abdominal pain with nausea, vomiting and diarrhea RUQ abdominal pain; vomiting, diarrhea TECHNIQUE: Multiaxial CT images of the abdomen and pelvis were performed following the IV administration of 119 cc of Optiray, A dose lowering technique was utilized adhering to the principles of ALARA. COMPARISON STUDY: CT abdomen and pelvis 07/11/2015, chest CT 11/19/2022. FINDINGS: Partially imaged breast implants. There is mild linear subsegmental bibasilar atelectasis versus scarring. 7 mm solid nodule within the basal right lower lobe on image 42 is new from the 2015 study however is unchanged from 11/19/2022. No free air. Unremarkable spleen, pancreas and adrenal glands. Gallbladder is within normal limits. No biliary ductal dilation. Scattered small cysts within the liver. Probable vascular shunt of the liver on image 129 series 8. The liver is mildly enlarged. There are 2 probable hemangiomata noted within the right hepatic lobe measuring up to 2.3 cm the hepatic dome on image 67 series 8. Patency of the hepatic and portal veins. Unremarkable kidneys without hydronephrosis. Probable small cyst of the superior pole right kidney. Unremarkable urinary bladder. The uterus appears surgically absent. Atherosclerosis of the aorta without aneurysm. No lymphadenopathy. Tiny fat filled umbilical hernia. Mild distal esophageal wall thickening with probable tiny hiatal hernia. There is no small bowel obstruction. Colonic diverticulosis without acute diverticulitis. Areas of circumferential wall thickening with mucosal hyperemia noted throughout the ascending and transverse colon with mild adjacent inflammatory stranding. Normal appendix. Scattered large and small bowel air-fluid levels. No acute fracture. IMPRESSION: 1. Findings suggestive of a mild infectious or inflammatory colitis involving the ascending and transverse colon. Probable mild associated ileus. 2. No bowel obstruction or pneumoperitoneum. 3. Normal appendix. 4. 7 mm solid nodule of the right lower lobe is unchanged from 11/19/2022. 5. Colonic diverticulosis. 6. Additional findings as above. ACT 112: Negative or not required by law. The above report was generated using voice recognition software. It may contain grammatical, syntax or spelling errors. Electronically signed by: Herson Silva M.D. 12/23/2023 12:40 PM Brain MRI 12/23/23 15:40 Brain MRI WITHOUT CONTRAST HISTORY: dizziness TECHNIQUE: Multiplanar multisequence MRI of the brain was performed without the use of contrast. COMPARISON STUDY: Head CT 12/23/2023. FINDINGS: There is no mass, hematoma, midline shift, or acute infarct. The paranasal sinuses are clear. The mastoid air cells are clear. The ventricles and sulci demonstrate mild age-related involutional changes. Scattered foci of T2 hyperintensity seen within the periventricular and subcortical white matter are nonspecific but suggestive of mild microvascular ischemic changes. The major vascular flow voids at the skull base are well-maintained. Prior bilateral lens replacement. Mild mucosal thickening within the maxillary sinuses. No fluid levels within the paranasal sinuses. There are few punctate foci of susceptibility artifact within the left cerebellar hemisphere. This is nonspecific but could represent small foci of calcification or old hemosiderin. IMPRESSION: No acute infarct or intracranial hemorrhage. ACT 112: Negative or not required by law. Electronically signed by: Alexey Stewart M.D. 12/23/2023 6:28 PM Hospital Course (1) Stroke-like symptoms: (2) Ambulatory dysfunction: (3) Colitis: (4) Dizziness: Plan Stroke Rule-Out, Dizziness, Headache: Patient developed nausea and vomiting Friday night, then woke up Friday morning with intractable dizziness and headache Hx of BPPV, previous vertiginous sx fleeting and responsive to vestibular therapy, current sx constant and failed to resolve with Linh maneuver No facial droop, slurred speech, or unilateral deficits reported Head CT without acute findings Head/neck CTA without acute findings Brain MRI negative Chronic h/o hearing loss, tinnitus, and vertigo - ?Menierre's disease vs vestibular neuritis vs other Patient has appointment to establish with ENT on 01/14 In the interim, recommend supportive care and sx management ie. Meclizine for vertigo, Motrin for headache, increased fluid intake Colitis - Sx resolved: Nausea and vomiting on Wednesday 12/20 Patient also endorses intermittent right-sided abdominal pain A/P CT revealed mild infectious colitis Dehydration in the setting of volume loss possibly a provoking factor for vestibular sx and headache Total Time Total Time Spent Total Time Spent (In Minutes): <30 Discharge Plan Discharge Items Patient Disposition: Home - Self-Care Reason For Visit: STROKE-LIKE SYMPTOMS, INTRACTABLE DIZZINESS Discharge Diagnosis: Dizziness Condition on Discharge: Good Activity: Resume your previous activity Non-emergency contact: Primary Care Provider and Specialist Call non-emergency contact if: you have any medication questions and your symptoms worsen Follow-up/Referrals: Cathie Bean MD [Primary Care Provider] - Diet: Regular Addtl Attending Provider Instructions: You were admitted to the hospital due to dizziness and headache. We did advanced imaging studies that were able to rule out the most serious potential causes, such as stroke or presence of a tumor. Based on your symptoms, which include hearing loss, tinnitus, and vertigo-like symptoms, it is possible that your symptoms may be due to Menierres disease - that said, there are multiple other vestibular conditions that could also be causing your symptoms. For this reason, we feel it would be best to be evaluated by an ENT. We will reach out to our case management team, who try to get an earlier ENT appointment for you. Following discharge, we recommend paying close attention to your fluid intake, aiming for a minimum of 60 ounces of water daily. Additionally, please continue any medications that help relieve your symptoms ie. Motrin for headache, meclizine for vertigo etc. Pending Studies at Discharge: No Stand-Alone Forms: My [facility] [employer], Smoking Cessation Medications and DC Order Prescriptions: Continued metoprolol succinate 25 mg tablet extended release 24 hr 25 mg PO QAM Qty: 90 3RF rizatriptan [[employer]IR[employer]MENT[employer] COORDINATOR] 10 mg tablet,disintegrating 10 mg PO Q2H PRN (Reason: migraine headache) Qty: 30 1RF Rx Instructions: do not exceed 3 doses per 24 hrs ( VERIFIED PAT CALL 07/26/22) escitalopram oxalate 20 mg tablet 20 mg PO QAM Qty: 30 4RF meclizine 25 mg tablet 25 mg PO BID PRN (Reason: dizziness) Qty: 30 0RF mesalamine 800 mg tablet,delayed release (DR/EC) 1,600 mg PO QAM MegaRed Advanced 6x Absorption 476-800 mg Capsule 1 cap PO QAM timolol maleate 0.25 % drops 1 drp OPB BID diclofenac sodium 75 mg tablet,delayed release (DR/EC) 75 mg PO DAILY PRN (Reason: Pain) Discharge Orders: Discharge Order (Routine); Ordered 12/24/23 Ordered By: Alfredo Zuniga Admission Data Admit Date/Time: 12/23/23 17:31 Attending Provider: Josh Zazueta Admit Provider: Mick Quintana Primary Care Provider: Cathie Bean Other Providers: Mick Quintana Other Interventions: Discharge Summary Assessment (RN) Last Done: 12/24/23 14:12 Supervising Physician Co-Signing Physician Notes I personally examined the patient and verified all pat points of history and exam, discussed case, and agree with decision making with Dr Zuniga would like to go home. working with vestibular PT and seeing ENT for the first time in ~3wks vitals noted nad heent nc at mmm breathing unlabored no accessory muscles good effort skin no rashes no pallor or icterus neuro no focal deficits dizziness/vertigo - no stroke, very low risk for cerebrovascular disease at all based mostly on HPI and also on general lack of vascular risk. main concerns would be possibly meniere's (does have tinnitis, hearing loss, vertigo) - sees ENT in 3wks; BPPV/labarynth pathology - actively following w vestibular PT; baseline labaryth pathology worsened by dehydration (encouraged to ensure adequate fluid intake) --->ongoing f/u w PT, seeing ENT soon, hydrate. safe for home. otherwise as above Resident Activity Tracking Resident Involvement: Resident Care Provided Care Provided: Adult [facility]
--- NOTE | 2023-12-24 17:37 | Billing Data ---
Date of Service December 24, 2023 Coding Level of Care Code 36695 IN/OBS DISCH 30 MIN/LESS
== END 2023-12-24 14:12 | disposition home or self-care (01) ==
LOC: EDINP 10:42 → ED 10:42 → SUATTDRO 17:31 → EDINP 19:33

== ENCOUNTER 2025-01-17 11:25 | Observation (INO) ==
[2025-01-17 12:04] LABS: Hematocrit (blood only) 42.3 % (37.0-47.0); Hemoglobin 14.6 g/dl (12.0-16.0); Immature Granulocytes # (auto) 0.01 K/uL (0.01-0.20); Immature Granulocytes % (auto) 0.2 %; Mean Corpuscular Hemoglobin 33.5 pg (25.0-34.0); Mean Corpuscular Volume 97.0 fL (80.0-100.0); Platelet Count 229 K/uL (130-400); RDW Standard Deviation 45.4 fL (36.4-46.3); Red Blood Count 4.36 M/uL (4.20-5.40); White Blood Count 4.58 K/ul (4.8-10.8)
[2025-01-17] MEDS: ACETAMINOPHEN 1,000 MG/100 ML VIAL IV STA (12:13)
--- NOTE | 2025-01-17 12:13 | Emergency Department Note ---
Impression & Plan Headache, Hypertension, Dizziness, Chest pain ED Provider Note HISTORY OF PRESENT ILLNESS: Patient is a 69-year-old female presenting with multiple complaints. Patient reports that she has been having continued intermittent chest pain since she was seen in the emergency department 5 days ago. She had a normal workup at that time and states that since being home she has had continued chest pain. Reports the pain was continuous but now has become intermittent. Initially was a pressure like sensation in her anterior chest and now seems to be a focal and very sharp sensation in her left side of her chest and "feels like I am being stabbed." She states that she has had a persistent headache. She denies any nausea or vomiting. Reports feeling short of breath and lightheaded like she is going to pass out. Reports that she intermittently gets these episodes of feeling like she is going to pass out and the room is spinning. She reports her blood pressures have been running high at home. Denies any DVT or PE history. Denies any history of cardiac stents. She is not on any anticoagulation or antiplatelet therapies. She was seen with her primary care provider for a follow-up appointment from her ER visit 5 days ago, and given her hypertension and persistent symptoms, they referred her back to the emergency department. ROS: as above PHYSICAL EXAM: Constitutional: Patient appears in no acute distress. HENT: Head: Normocephalic and atraumatic. Eyes: EOMI, PERRL Mouth/Throat: Mucous membranes moist. Neck: Trachea midline. Neck supple. Cardiovascular: RRR, No murmurs, rubs or gallops. Intact distal pulses. Pulmonary/Chest: No respiratory distress. Breath sounds clear and equal bilaterally. No wheezes or rales. Abdominal: Abdomen soft, no tenderness, rebound or guarding. Musculoskeletal: No edema, tenderness or deformity noted. Skin: Warm and dry. No rash, erythema, pallor or cyanosis Psychiatric: Appropriate mood and affect for situation. Neurological: Alert and keenly responsive. CN II-XII grossly intact, moving all extremities equally and fully. MDM: - Vitals signs showed hypertension - History obtained via patient. History as above. - Chronic conditions affecting care: HTN; depression; Takotsubo syndrome - Differential diagnoses include, but are not limited to: Acute coronary syndrome; pulmonary embolism; dissection; tension pneumothorax; esophageal rupture; pneumonia - Order placed for continuous cardiac monitoring. At this time, monitor showed rate of 60 bpm with normal sinus rhythm, per my interpretation. - External medical records reviewed. Primary care visit note from today was reviewed. Patient was referred to the emergency department for headache and elevated blood pressures and concern for hypertensive urgency. - EKG image interpreted by myself showed normal sinus rhythm. Rate 67 bpm. QT 396. No acute ischemic changes. - Laboratory workup interpreted by myself showed slight leukopenia (WBC 4.58); normal PT/INR; negative D-dimer; stable electrolytes; normal troponin; normal lipase; normal AST/ALT; elevated total bilirubin (1.1 - appears chronically elevated) - Negative Lyme, anaplasmosis and babesia testing - CXR image interpreted by myself is negative for pneumonia, per my interpretation. Radiology notes mild cardiomegaly. - CT head without contrast negative for acute intracranial pathology. - Patient given 1g IV tylenol in the ER. - On reassessment, patient is still complaining of a headache. She reports she still having some intermittent chest pain. She reports she does not feel comfortable going home, she has had continued symptoms throughout the weekend. Will admit to hospitalist service for further evaluation and management. - Discussion was had with case management social worker about patient's case and need for admission - Hospitalist consulted for admission - Patient admitted to [facility] hospitalist service for further evaluation and management. ASSESSMENT AND PLAN: Diagnosis: Headache; hypertension; chest pain; dizziness Plan: Admit Past Med/Surg History Problem List (Updated 01/17/25 @ 16:14 by Christine Sam MD) Chest pain (Acute) Dizziness (Acute) Hypertension (Acute) Headache (Acute) Hypertensive urgency Leukopenia (Acute) Chest pain (Acute) Back pain, thoracic (Acute) Ambulatory dysfunction (Acute) Dizziness (Acute) Headache (Acute) Cough (Acute) H/O bilateral breast implants History of bilateral mastectomy DCIS 2010 Benign positional vertigo Thyroid nodule MONITOR Migraines (Chronic) Lumbar disc herniation (Chronic) History of removal of cyst History of knee surgery History of hysterectomy Arthritis (Chronic) Pulmonary nodule (Chronic) Joint inflammation of left hand and wrist Left wrist tendonitis Ulnar neuritis Lateral meniscal tear Hot flashes due to menopause EtOH dependence Anxiety Stress-induced cardiomyopathy Ulcerative colitis Depression Cyst of ovary, right De Quervain's tenosynovitis Diverticulosis of colon Insomnia Long-term use of hydroxychloroquine Ovarian mass, left BOOGIE (stress urinary incontinence, female) Vitamin D deficiency Takotsubo cardiomyopathy (09/2021) Encounter for examination following treatment at hospital Encounter for screening and preventative care Screening for skin cancer Fatigue CMC arthritis Osteoarthritis of right knee HTN (hypertension) Medical History History of colon polyps History of sleep study IN HOME SLEEP STUDY/QUESTIONABLE DX OF SLEEP APNEA/ PT DOESN'T AGREE WITH DX OF SLEEP APNEA Inflammatory bowel disease History of breast cancer DX 2009/ DOUBLE MASTECTOMY Hot flashes History of depression Borderline high blood pressure Takotsubo syndrome DX SEPTEMBER 2021 (HOSPITALIZED [facility]) Retinal detachment, left HX BOTH EYES Anaplasmosis HX Wrist pain, left Surgical History History of cardiac cath SEPTEMBER 2021 ([facility])...FATIGUE/OVER EXERTED SELF & OVER HEATED/CHEST DISCOMFORT...DX OF BROKEN HEART SYNDROME History of endoscopy REMOTE HX History of colonoscopy History of arthroscopy of right knee H/O thyroid cyst HX REMOVAL History of gynecologic surgery Cx conization Loop electrode excision History of gynecologic surgery Cx cryosurgery H/O dilation and curettage S/P endometrial ablation S/P tooth extraction H/O sinus surgery S/P tonsillectomy History of LAVH with BSO History of hand surgery RIGHT & LEFT X2 (HARDWARE IN LEFT HAND) History of eye surgery R&L FOR DETACHED RETINA History of fusion of cervical spine FULL ROM Family History Grandfather (Maternal) Myocardial infarction Mother Lung cancer Denies family history of Ovarian cancer Prostate cancer Breast cancer Colorectal cancer Social History Smoking Status: Never smoker Second Hand Exposure: No; Do You Dip or Chew Tobacco: No; Hx Alcohol Use: Yes Alcohol type: wine Alcohol Intake Frequency: Monthly or Less Hx Substance Use: No Preferred Language: Korean Communication Ability: Effective Visual Impairment: No Limitations Hearing Ability: Use of Hearing Aid Sales Analytics Manager Required: No Beliefs That Will Affect Care: None marital status: Current Living Situation: Spouse current occupational status: employed 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- [employer] How many Children do You have: 1 Feels Safe at Home: Yes Childhood Exposure to Second-Hand Smoke: Yes Diet: regular caffeine: Yes during the past year weight has: remained stable Dental Care, Regularly: Yes Physical Activity Frequency: Daily Seatbelt Use: always Sunscreen Use: Yes Do you think of yourself as: straight/heterosexual Sexual Activity: has been sexually active within the last 12 months Gender Identity: Female Assistive Devices: None Allergies Allergies Allergy/AdvReac Type Severity Reaction Status Date / Time nitrofurantoin Allergy Intermediate ITCHING Verified 01/17/25 15:38 [From Macrobid] Sulfa (Sulfonamide Allergy Unknown PT NOT Verified 01/17/25 15:38 Antibiotics) SURE, THINKS RASH Home Meds Home Medications Medication Instructions Recorded Confirmed mesalamine 800 mg tablet,delayed 1,600 mg PO QAM 10/22/21 01/17/25 release omega 3-dha and epa 476 mg-fish 1 cap PO QAM 10/22/21 01/17/25 oil 800 mg capsule (MegaRed Advanced 6x Absorption) dorzolamide 2 % eye drops 1 drp ophthalmic (eye) TID PRN Pain 07/14/24 01/17/25 Previous Rx's Medication Instructions Recorded rizatriptan 10 mg disintegrating 10 mg PO Q2H PRN migraine headache 04/30/23 tablet (Maxalt-GEOTECHNICIAL PROPERTIES TECHNICIAN) #30 tabs escitalopram oxalate 20 mg tablet 20 mg PO QAM #90 tabs 06/28/24 metoprolol succinate 25 mg 25 mg PO QAM #90 tabs 08/19/24 tablet,extended release 24 hr meclizine 25 mg tablet 25 mg PO BID PRN dizziness #30 tabs 09/01/24 diclofenac sodium 75 mg 75 mg PO DAILY PRN Pain #30 tabs 11/29/24 tablet,delayed release cyclobenzaprine 5 mg tablet 5 mg PO TID PRN muscle spasm #20 01/13/25 tabs lidocaine 4 % topical patch 1 patch topical Q12H PRN pain #30 01/13/25 ea Results & Data (ED) Vital Signs Vital Signs - 24 hr 01/17/25 11:32 01/17/25 11:43 01/17/25 12:20 Temperature 36.6 C Temperature Source Oral Pulse Rate 66 66 Pulse Rate [Apical] 65 Pulse Rhythm Regular Respiratory Rate 16 16 18 Respiratory Effort / Characteristics Non-Labored Non-Labored Spontaneous Respiratory Depth Normal Normal Respiratory Pattern Regular Blood Pressure 160/84 H Blood Pressure [Right Arm] 165/81 H Blood Pressure Mean 109 Blood Pressure Mean [Right Arm] 109 Blood Pressure Position [Right Arm] Lying Pulse Oximetry 97 97 99 Oxygen Delivery Method Room Air Room Air Room Air Sepsis Recent Fever Within 48 Hours No Sepsis New/Unexplained Change in Mental Status N/A Sepsis Action Taken by Nursing No Action Required 01/17/25 12:23 01/17/25 13:30 01/17/25 15:01 Temperature Temperature Source Pulse Rate 60 Pulse Rate [Apical] 60 60 Pulse Rhythm Respiratory Rate 18 18 Respiratory Effort / Characteristics Non-Labored Spontaneous Non-Labored Spontaneous Respiratory Depth Normal Normal Respiratory Pattern Blood Pressure Blood Pressure [Right Arm] 164/82 H 165/79 H Blood Pressure Mean Blood Pressure Mean [Right Arm] 109 107 Blood Pressure Position [Right Arm] Lying Lying Pulse Oximetry 99 98 Oxygen Delivery Method Room Air Room Air Sepsis Recent Fever Within 48 Hours Sepsis New/Unexplained Change in Mental Status Sepsis Action Taken by Nursing Laboratory Data 01/17/25 11:44 01/17/25 11:44 Lab Results 01/17/25 01/17/25 Range/Units 11:44 11:46 WBC 4.58 L (4.8-10.8) K/ul RBC 4.36 (4.20-5.40) M/uL Hgb 14.6 (12.0-16.0) g/dl Hct 42.3 (37.0-47.0) % MCV 97.0 (80.0-100.0) fL MCH 33.5 (25.0-34.0) pg MCHC 34.5 (32.0-36.0) g/dL RDW Std Deviation 45.4 (36.4-46.3) fL RDW Coeff of Inderjit 12.6 (11.5-14.5) % Plt Count 229 (130-400) K/uL MPV 9.6 (9.4-12.4) fL Immature Gran % (Auto) 0.2 % Neut % (Auto) 57.9 % Lymph % (Auto) 30.8 % [place] % (Auto) 7.0 % Eos % (Auto) 3.7 % Baso % (Auto) 0.4 % Neut # (Auto) 2.65 (1.40-6.50) K/uL Lymph # (Auto) 1.41 (1.20-3.40) K/uL [place] # (Auto) 0.32 (0.11-0.59) K/uL Eos # (Auto) 0.17 (0.00-0.50) K/uL Baso # (Auto) 0.02 (0.00-0.20) K/uL Immature Gran # (Auto) 0.01 (0.01-0.20) K/uL PT 10.7 (9.0-12.0) Seconds INR 1.0 (0.9-1.1) D-Dimer 310 (0-500) ug/L FEU Sodium 140 (136-145) mmol/L Potassium 4.1 (3.5-5.1) mmol/L Chloride 107 (98-107) mmol/L Carbon Dioxide 28 (21-32) mmol/L Anion Gap 5 (3-11) BUN 17 (6-23) mg/dl Creatinine 0.88 (0.6-1.2) mg/dl Est Cr Clr Drug Dosing 61.7 ml/min eGFR 71.54 BUN/Creatinine Ratio 19.3 (10-20) Glucose 92 (70-99(Fasting)) mg/dl Calcium 9.4 (8.6-10.3) mg/dl Magnesium 2.2 (1.7-2.4) mg/dl Total Bilirubin 1.1 H (0.2-1.0) mg/dl AST 22 (13-39) U/L ALT 15 (7-52) U/L Alkaline Phosphatase 82 (34-104) U/L Troponin I High Sens 3.1 (0-14) pg/ml Total Protein 7.3 (6.0-8.3) gm/dl Albumin 4.4 (3.4-5.0) gm/dl Globulin 2.9 (2.5-4.0) gm/dl Albumin/Globulin Ratio 1.5 (0.9-2) Lipase 13 (11-82) U/L Anaplasma Smear See Comment Babesia Smear See Comment Lyme Disease Screen Negative (Negative) Administered Medications Discontinued Medications Acetaminophen (Ofirmev) 1,000 mg in 100 mls @ 400 mls/hr IV NOW STA Stop: 01/17/25 12:19 Last Infusion: 01/17/25 13:41 Dose: Infused Documented By: Admin: 01/17/25 12:13 Dose: 400 mls/hr Documented By: RICH Imaging Data Radiologist's Impression: Chest X-Ray 01/17/25 11:43 SINGLE VIEW CHEST CLINICAL HISTORY: Chest pain FINDINGS: An AP, portable, upright chest radiograph is compared to study dated 01/13/2025 and correlated with chest CT dated 12/28/2024. The heart is enlarged noting atherosclerotic calcification of the thoracic aorta. The pulmonary vasculature is noncongested. Chronic interstitial thickening is similar to previous. There are scattered calcified granulomas. Scarring/atelectasis is noted at the lung bases. No airspace consolidation or large pleural effusion is identified. No pneumothorax is seen. The skeletal structures are osteopenic. The Bony thorax is grossly intact. Fusion hardware is seen in the lower cervical spine. Surgical clips are seen in the chest wall bilaterally. IMPRESSION: Mild cardiomegaly with no acute cardiopulmonary abnormality identified. ACT 112: Negative or not required by law. Electronically signed by: Alejandro Canas M.D. 01/17/2025 12:[address] 01/17/25 13:29 CT head/brain wo con CLINICAL HISTORY: 69 years-old Female with dizziness; headache. Acute headache with dizziness TECHNIQUE: Multiple axial CT images of the head were obtained without contrast. A dose lowering technique was utilized adhering to the principles of ALARA. CT DOSE: 625.8 mGy.cm COMPARISON: Brain MR 12/23/2023, head CT 12/23/2023 FINDINGS: No acute intracranial hemorrhage, midline shift, intracranial mass, hydrocephalus, territorial ischemia or abnormal extra-axial collection. Mild white matter hypodensities suggestive of chronic microvascular ischemic disease redemonstrated. The calvarium is intact. The paranasal sinuses, mastoid air cells, and middle ear cavities are clear. IMPRESSION: No acute intracranial abnormality. ACT 112: Negative or not required by law. The above report was generated using voice recognition software. It may contain grammatical, syntax or spelling errors. Electronically signed by: Herson Silva M.D. 01/17/2025 2:06 PM Discharge Plan Visit Data Chief Complaint: Hypertension Stated Complaint: HIGH BLOOD PRESSURE ED Provider: Christine Sam Discharge Problem: Headache, Hypertension, Dizziness, Chest pain Condition: Fair Forms Stand Alone Forms: [facility] Prescriptions Prescriptions: No Action rizatriptan [Maxalt-GEOTECHNICIAL PROPERTIES TECHNICIAN] 10 mg tablet,disintegrating 10 mg PO Q2H PRN (Reason: migraine headache) Qty: 30 1RF Rx Instructions: do not exceed 3 doses per 24 hrs ( VERIFIED PAT CALL 07/26/22) escitalopram oxalate 20 mg tablet 20 mg PO QAM Qty: 90 3RF metoprolol succinate 25 mg tablet extended release 24 hr 25 mg PO QAM Qty: 90 3RF meclizine 25 mg tablet 25 mg PO BID PRN (Reason: dizziness) Qty: 30 0RF diclofenac sodium 75 mg tablet,delayed release (DR/EC) 75 mg PO DAILY PRN (Reason: Pain) Qty: 30 2RF dorzolamide 2 % drops 1 drp ophthalmic (eye) TID PRN (Reason: Pain) mesalamine 800 mg tablet,delayed release (DR/EC) 1,600 mg PO QAM MegaRed Advanced 6x Absorption 476-800 mg Capsule 1 cap PO QAM lidocaine 4 % adhesive patch,medicated 1 patch topical Q12H PRN (Reason: pain) Qty: 30 0RF cyclobenzaprine 5 mg tablet 5 mg PO TID PRN (Reason: muscle spasm) Qty: 20 0RF Referrals Referrals: Cathie Bean MD [Primary Care Provider] -
[2025-01-17 12:24] LABS: Alanine Aminotransferase 15.0 U/L (7-52); Albumin Globulin Ratio 1.5 (0.9-2); Alkaline Phosphatase 82.0 U/L (34-104); Anion Gap 5.0 (3-11); Bilirubin,Total 1.1 mg/dl (0.2-1.0); Blood Urea Nitrogen 17.0 mg/dl (6-23); Calcium 9.4 mg/dl (8.6-10.3); Carbon Dioxide 28.0 mmol/L (21-32); Chloride 107.0 mmol/L (98-107); Creatinine Clr Calc Pharmacy 61.7 ml/min; Globulin 2.9 gm/dl (2.5-4.0); Glucose 92.0 mg/dl (70-99(Fasting)); Lipase 13.0 U/L (11-82); Magnesium 2.2 mg/dl (1.7-2.4); Potassium 4.1 mmol/L (3.5-5.1); Sodium 140.0 mmol/L (136-145); Total Protein 7.3 gm/dl (6.0-8.3)
--- NOTE | 2025-01-17 12:30 | XRay Report ---
SINGLE VIEW CHEST CLINICAL HISTORY: Chest pain FINDINGS: An AP, portable, upright chest radiograph is compared to study dated 01/13/2025 and correlat ed with chest CT dated 12/28/2024. The heart is enlarged noting atherosclerotic calcification of the th oracic aorta. The pulmonary vasculature is noncongested. Chronic interstitial thickening is similar t o previous. There are scattered calcified granulomas. Scarring/atelectasis is noted at the lung bases . No airspace consolidation or large pleural effusion is identified. No pneumothorax is seen. The ske letal structures are osteopenic. The Bony thorax is grossly intact. Fusion hardware is seen in the lo wer cervical spine. Surgical clips are seen in the chest wall bilaterally. IMPRESSION: Mild cardiomegaly with no acute cardiopulmonary abnormality identified. ACT 112: Negative or not required by law. Electronically signed by: Alejandro Canas M.D. 01/17/2025 12:28 PM
--- NOTE | 2025-01-17 14:08 | CT Scan Report ---
CT head/brain wo con CLINICAL HISTORY: 69 years-old Female with dizziness; headache. Acute headache with dizziness TECHNIQUE: Multiple axial CT images of the head were obtained without contrast. A dose lowering tech nique was utilized adhering to the principles of ALARA. CT DOSE: 625.8 mGy.cm COMPARISON: Brain MR 12/23/2023, head CT 12/23/2023 FINDINGS: No acute intracranial hemorrhage, midline shift, intracranial mass, hydrocephalus, territorial ischem ia or abnormal extra-axial collection. Mild white matter hypodensities suggestive of chronic microvas cular ischemic disease redemonstrated. The calvarium is intact. The paranasal sinuses, mastoid air cells, and middle ear cavities are clear . IMPRESSION: No acute intracranial abnormality. ACT 112: Negative or not required by law. The above report was generated using voice recognition software. It may contain grammatical, syntax o r spelling errors. Electronically signed by: Herson Silva M.D. 01/17/2025 2:06 PM
[2025-01-17 14:09] LABS: INR 1.0 (0.9-1.1); Prothrombin Time 10.7 Seconds (9.0-12.0)
--- NOTE | 2025-01-17 15:23 | History & Physical Report ---
Date of Service January 17, 2025 Assessment & Plan (1) Chest pain: (2) Uncontrolled hypertension: Plan This patient is a 69-year-old female who presented on 01/17 for intermittent chest pain x 5 days [employer]. The pain radiates to her shoulders and back bilaterally. #Chest/epigastric pain | ? Peptic ulcer Troponin WNL x 2 EKG without acute ischemic changes appreciated Lyme negative D-dimer negative Patient reports she is still experiencing 6/10 chest pain on admission Given intractable chest pain with radiation to back in the ED + new onset HTN (up to ), chest CTA was ordered Chest CTA negative for aortic dissection Suspect that patient's chest pain is likely GERD or peptic ulcer in the setting of chronic/recent ibuprofen and diclofenac use Patient reports using a Profen 20 mg x 4 tablets BID, and rotates in diclofenac PRN for chronic back pain Initiate Protonix 40 mg p.o. QAM Trial of sucralfate 1g x 1 in the ED Maalox PRN #Uncontrolled HTN Suspect patient's uncontrolled hypertension is also contributing to her symptoms (headache, chest pain, lightheadedness, episodes of diaphoresis) Reviewed most recent cardiology note from July 2024, which did make mention of uncontrolled HTN Continue metoprolol 25 mg p.o. daily Initiate triamterene-HCTZ 37.5/25 p.o. q48h Caution use of IV beta-blockers; patient mildly bradycardic at <60bpm in the ED #Chest palpitations Patient reports episodes of intermittent chest palpitations overnight Denies history of atrial fibrillation or cardiac arrhythmias Continuous telemetry monitoring for now #H/o Takotsubo's cardiomyopathy Noted; MD and hospitalization October 2021 Last echocardiogram 10/24/2021 revealed LVEF at 60 to 65% and a small area of apical hypokinesis If patient is refractory to the above treatments, will plan to repeat echocardiogram Disposition: Obs - admit to [facility] tele VTE PPx: SCDs History of Present Illness Chief Complaint: Hypertension Primary Care Provider: Cathie Bean MD Mrs. Berry is a 69-year-old female with PMH of HTN, Takotsubo cardiomyopathy, ulcerative colitis, depression, anxiety, and bilateral mastectomy. She presented on 01/17 for intermittent, substernal chest pain x 5 days [employer]. She was originally seen in the emergency department on 01/14 for constant chest pain and headache, with associated lightheadedness, SOB, and diaphoresis. The pain is substernal bilaterally and radiates to her shoulders bilaterally as well as her mid to lower back. While the pain was constant on (lasting hours), she does report that it has been more intermittent today. She rates the pain as a 6 out of 10 at present. She reports that laying on her back does improve the pain. She also reports that over the past several days, her stomach is gotten more upset after meals. Patient has been taking ibuprofen at home for the pain, but this has not been helping. She takes 4 tablets x 200 mg BID. She rotates and diclofenac tablets as needed for the pain. Her reports that she is also been taking this over the past several weeks for her back pain. No prior history of peptic ulcers to her knowledge. No recent change in diet; has been eating corn, squash, chicken, and hamburgers over the past week. No prior history of issues with her gallbladder. No sick contacts. However she has had a dry cough over the past week. Additionally, patient reports that her blood pressure has been elevated since . She takes her blood pressure at home twice daily with her home cuff, and usually it is 130/60. However, the systolic has been >150 since , and today it was elevated at 179/92 in her PCPs office, which was the reason she came in. Patient took her regular morning medication today, including her metoprolol 25 mg which she takes daily. She denies any recent change in medications. She does note that during her last cardiology appointment in July, there were discussions about her starting on triamtereneHCTZ, but she has not been taking it. She denies prior history of atrial fibrillation or cardiac arrhythmias. No PMH of DVT/PE or strokes.. No submental oxygen at baseline or CPAP at night. She denies smoking, or chewing tobacco. She does use alcohol on occasion, with last alcohol being last week. Patient is mildly hypertensive at 165/79 at time of admission; vitals otherwise stable. ED course: Acetaminophen 1000 mg IV ROS: Patient endorses lightheadedness/dizziness at rest, headache (note: patient does have history of migraines), chest pain, pleuritic CP, dry cough, intermittent SOB at rest and with exertion, chest palpitations (last night while laying in bed), abdominal discomfort, nausea, and diarrhea. Patient denies fever, night-sweats, no changes in vision, slurred speech, facial droop, unilateral deficits, vomiting, blood in the stool/urine, melena, burning with urination, dysuria, or numbness/tingling in the arms or legs. Allergies Allergy/AdvReac Type Severity Reaction Status Date / Time nitrofurantoin Allergy Intermediate ITCHING Verified 01/17/25 15:38 [From Macrobid] Sulfa (Sulfonamide Allergy Unknown PT NOT Verified 01/17/25 15:38 Antibiotics) SURE, THINKS RASH Home Medications Medication Instructions Recorded Confirmed Type mesalamine 800 mg tablet,delayed 1,600 mg PO QAM 10/22/21 01/17/25 History release omega 3-dha and epa 476 mg-fish 1 cap PO QAM 10/22/21 01/17/25 History oil 800 mg capsule (MegaRed Advanced 6x Absorption) rizatriptan 10 mg disintegrating 10 mg PO Q2H PRN migraine headache 04/30/23 01/17/25 Rx tablet (Maxalt-UNIT REACTOR OPERATOR) #30 tabs escitalopram oxalate 20 mg tablet 20 mg PO QAM #90 tabs 06/28/24 01/17/25 Rx dorzolamide 2 % eye drops 1 drp ophthalmic (eye) TID PRN Pain 07/14/24 01/17/25 History metoprolol succinate 25 mg 25 mg PO QAM #90 tabs 08/19/24 01/17/25 Rx tablet,extended release 24 hr meclizine 25 mg tablet 25 mg PO BID PRN dizziness #30 tabs 09/01/24 01/17/25 Rx diclofenac sodium 75 mg 75 mg PO DAILY PRN Pain #30 tabs 11/29/24 01/17/25 Rx tablet,delayed release cyclobenzaprine 5 mg tablet 5 mg PO TID PRN muscle spasm #20 01/13/25 01/17/25 Rx tabs lidocaine 4 % topical patch 1 patch topical Q12H PRN pain #30 01/13/25 01/17/25 Rx ea Past Med/Surg History Problem List (Updated 01/17/25 @ 17:53 by Alexey Phillips PA-C) Uncontrolled hypertension Chest pain (Acute) Dizziness (Acute) Hypertension (Acute) Headache (Acute) Hypertensive urgency Leukopenia (Acute) Chest pain (Acute) Back pain, thoracic (Acute) Ambulatory dysfunction (Acute) Dizziness (Acute) Headache (Acute) Cough (Acute) H/O bilateral breast implants History of bilateral mastectomy DCIS 2010 Benign positional vertigo Thyroid nodule MONITOR Migraines (Chronic) Lumbar disc herniation (Chronic) History of removal of cyst History of knee surgery History of hysterectomy Arthritis (Chronic) Pulmonary nodule (Chronic) Joint inflammation of left hand and wrist Left wrist tendonitis Ulnar neuritis Lateral meniscal tear Hot flashes due to menopause EtOH dependence Anxiety Stress-induced cardiomyopathy Ulcerative colitis Depression Cyst of ovary, right De Quervain's tenosynovitis Diverticulosis of colon Insomnia Long-term use of hydroxychloroquine Ovarian mass, left BOOGIE (stress urinary incontinence, female) Vitamin D deficiency Takotsubo cardiomyopathy (09/2021) Encounter for examination following treatment at hospital Encounter for screening and preventative care Screening for skin cancer Fatigue CMC arthritis Osteoarthritis of right knee HTN (hypertension) Medical History History of colon polyps History of sleep study IN HOME SLEEP STUDY/QUESTIONABLE DX OF SLEEP APNEA/ PT DOESN'T AGREE WITH DX OF SLEEP APNEA Inflammatory bowel disease History of breast cancer DX 2009/ DOUBLE MASTECTOMY Hot flashes History of depression Borderline high blood pressure Takotsubo syndrome DX SEPTEMBER 2021 (HOSPITALIZED [facility]) Retinal detachment, left HX BOTH EYES Anaplasmosis HX Wrist pain, left Surgical History History of cardiac cath SEPTEMBER 2021 ([facility])...FATIGUE/OVER EXERTED SELF & OVER HEATED/CHEST DISCOMFORT...DX OF BROKEN HEART SYNDROME History of endoscopy REMOTE HX History of colonoscopy History of arthroscopy of right knee H/O thyroid cyst HX REMOVAL History of gynecologic surgery Cx conization Loop electrode excision History of gynecologic surgery Cx cryosurgery H/O dilation and curettage S/P endometrial ablation S/P tooth extraction H/O sinus surgery S/P tonsillectomy History of LAVH with BSO History of hand surgery RIGHT & LEFT X2 (HARDWARE IN LEFT HAND) History of eye surgery R&L FOR DETACHED RETINA History of fusion of cervical spine FULL ROM Family History Grandfather (Maternal) Myocardial infarction Mother Lung cancer Denies family history of Ovarian cancer Prostate cancer Breast cancer Colorectal cancer Social History Smoking Status: Former smoker Tobacco Type: Cigarettes Second Hand Exposure: No; Do You Dip or Chew Tobacco: No; Hx Alcohol Use: Yes Alcohol type: beer Alcohol Intake Frequency: Monthly or Less Hx Substance Use: No Preferred Language: Malay Communication Ability: Effective Visual Impairment: No Limitations Hearing Ability: Use of Hearing Aid Health Sciences Manager Required: No Beliefs That Will Affect Care: None marital status: Current Living Situation: Spouse current occupational status: employed 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- [place] How many Children do You have: 1 Feels Safe at Home: Yes Childhood Exposure to Second-Hand Smoke: Yes Diet: regular caffeine: Yes during the past year weight has: remained stable Dental Care, Regularly: Yes Physical Activity Frequency: Daily Seatbelt Use: always Sunscreen Use: Yes Do you think of yourself as: straight/heterosexual Sexual Activity: has been sexually active within the last 12 months Gender Identity: Female Assistive Devices: Glasses Review of Systems Review of Systems: See HPI above Physical Exam Physical Exam: General: no acute distress; pleasant affect; anxious; at bedside; non- toxic appearing; cooperative; SpO2 98% on RA HEENT: normocephalic, atraumatic; no scleral icterus; PERRLA w/ EOMs intact; v ision and hearing grossly intact Neck: supple; trachea midline; shrugging shoulders against resistance does not elicit pain Skin: warm, dry without signs of tenting; no cyanosis; no rashes, bruising, lesions, or erythema noted CV: chest wall is mildly TTP substernally (she describes it as "discomfort" with palpation); RRR; leaning forward does not reproduce the pain; pulses intact and symmetric at radial, DP, and PT Lungs: no acute respiratory distress; symmetrical chest wall expansion; clear breath sounds across all lung hanley w/o adventitious sounds; no wheezing ABD: Soft, NTP; BS present; no rebound/guarding; no distention Back: Upper spine NTP; lower spine NTP; no rashes or bruising appreciated in the abdomen or flank bilaterally MSK: no tics or fasciculations; no edema noted in the LEs b/l, nonerythematous; 5/5 retort feeder ground bone strength bilaterally Neuro: A&Ox3; normal mood and affect; fluent speech; no focal deficits; patient reports sensation is intact and symmetric in the upper and lower extremities bilaterally assessed via light touch Results & Data Results & Data Vital Signs (Past 12 Hours) Vital Signs Temp Pulse Pulse Resp BP BP Pulse Ox 01/17/25 15:01 60 18 165/79 H 98 01/17/25 13:30 60 18 164/82 H 99 01/17/25 12:23 60 01/17/25 12:20 65 18 165/81 H 99 01/17/25 11:43 66 16 97 01/17/25 11:32 36.6 C 66 16 160/84 H 97 O2 Del Method 01/17/25 15:01 Room Air 01/17/25 13:30 Room Air 01/17/25 12:23 01/17/25 12:20 Room Air 01/17/25 11:43 Room Air 01/17/25 11:32 Room Air Laboratory Results Abnormal lab results 01/17/25 Range/Units 11:44 WBC 4.58 L (4.8-10.8) K/ul Total Bilirubin 1.1 H (0.2-1.0) mg/dl Diagnostic Findings Chest X-Ray 01/17/25 11:43 SINGLE VIEW CHEST CLINICAL HISTORY: Chest pain FINDINGS: An AP, portable, upright chest radiograph is compared to study dated 01/13/2025 and correlated with chest CT dated 12/28/2024. The heart is enlarged noting atherosclerotic calcification of the thoracic aorta. The pulmonary vasculature is noncongested. Chronic interstitial thickening is similar to previous. There are scattered calcified granulomas. Scarring/atelectasis is noted at the lung bases. No airspace consolidation or large pleural effusion is identified. No pneumothorax is seen. The skeletal structures are osteopenic. The Bony thorax is grossly intact. Fusion hardware is seen in the lower cervical spine. Surgical clips are seen in the chest wall bilaterally. IMPRESSION: Mild cardiomegaly with no acute cardiopulmonary abnormality identified. ACT 112: Negative or not required by law. Electronically signed by: Alejandro Canas M.D. 01/17/2025 12:[address] 01/17/25 13:29 CT head/brain wo con CLINICAL HISTORY: 69 years-old Female with dizziness; headache. Acute headache with dizziness TECHNIQUE: Multiple axial CT images of the head were obtained without contrast. A dose lowering technique was utilized adhering to the principles of ALARA. CT DOSE: 625.8 mGy.cm COMPARISON: Brain MR 12/23/2023, head CT 12/23/2023 FINDINGS: No acute intracranial hemorrhage, midline shift, intracranial mass, hydrocephalus, territorial ischemia or abnormal extra-axial collection. Mild white matter hypodensities suggestive of chronic microvascular ischemic disease redemonstrated. The calvarium is intact. The paranasal sinuses, mastoid air cells, and middle ear cavities are clear. IMPRESSION: No acute intracranial abnormality. ACT 112: Negative or not required by law. The above report was generated using voice recognition software. It may contain grammatical, syntax or spelling errors. Electronically signed by: Herson Silva M.D. 01/17/2025 2:06 PM ECG Additional Comments: ECG revealed NSR at 67 bpm; QTc 418 Code Status & VTE Plan Code Status Full code VTE Prophylaxis Plan VTE Prophylaxis will be ordered: Yes Supervising Physician Co-Signing Physician Notes Patient was seen and examined independently I discussed the case with Alexey Phillips PA-C I reviewed pertinent past medical social family history and also the plan of care and agree with the plan of care. patient presents on the behest of her family physician for hypertensive urgency. Patient is having intermittent issues with blood pressure control and some discomfort. Patient has recently been taking both ibuprofen and diclofenac. She has had no melena. Her chest discomfort is difficult for her to quantify. Her troponin is negative on presentation and the patient was here 5 days prior with a negative cardiac workup in the ER . Upon presentation she is a nonacute EKG CT angiogram does not show dissection or pulmonary embolism her blood pressure is mostly now systolic where diastolics are in the 80s. She denies recent increase in caffeine or salt. Physical exam finds her heart to be regular lungs been clear she has no carotid bruits she has no abdominal bruit equal bilateral pulses in the radius and dors madhavi pedis This was in the hypertensive urgency plus minus chest pain which could be dyspeptic in nature will increase treatment with proximal inhibitor and sucralfate control her blood pressure by the addition of more frequent triamterene-hydrochlorothiazide to her beta-abhijit. Will have a ability to have as needed clonidine if her blood pressure remains high overnight Any exceptions will be noted below PG Care Time/CCT Total # of Minutes Spent Total Time Spent with Patient: Total time spent is greater than 50% in coordination of care (as documented) at patient's floor/unit and/or counseling patient: Coding [place] [address] INT INP/OBS CARE 2/55MIN Patient Type Established Medical Decision Making Moderate Complexity Diagnoses Chest pain R07.9 Uncontrolled hypertension I10
[2025-01-17] MEDS: OPTIRAY 320 125ml IV ONE (16:55)
--- NOTE | 2025-01-17 17:19 | CT Scan Report ---
EXAMINATION: CT angio chest dissection without with contrast CLINICAL HISTORY: Chest pain with radiation to back and shoulders, new hypertension PRIORS: None TECHNIQUE: Contiguous CTA axial images were obtained through the chest without and with the use of intravenous contrast. Sagittal and coronal reformations are supplied. FINDINGS: Allowing for motion artifact, the ascending aorta measures 3.3 x 3.3 cm at the level of the main pulmonary artery. The descending aorta measures 2.6 cm at this level. No periaortic fluid or extravasation. No intimal flap to suggest aortic dissection. A left-sided aortic arch is present with appropriate takeoff of the great vessels. Mild atherosclerotic disease is noted. Descending thoracic aorta is normal in caliber and appearance. No hyperattenuating fluid on the noncontrast enhanced images. Bilateral breast implants in the [id number]. Chest is well-expanded. Subpleural pulmonary nodule present in the right lower lobe, round in morphology measuring 6.6 mm. Mild hypoventilatory changes present in the lung bases. No pleural or pericardial effusion. Trachea and mainstem bronchi patent. Thyroid is normal in size. No adenopathy in the chest. Heart size within normal limits. Limited visualization of the upper abdomen shows no acute abnormality. Moderate kyphosis present with mild osseous demineralization. No acute or healing fracture no dislocation. No pneumothorax. IMPRESSION: No CT evidence of an acute cardiopulmonary process. Electronically signed by Lucila Warren 01-17-2025 5:18 PM
[2025-01-17] MEDS ORDERED: MoRPHine SULFATE 2 MG/ML CARP IV PRN (17:30)
[2025-01-17] MEDS ORDERED: MECLIZINE HCL 25 MG TAB PO PRN (17:30)
[2025-01-17] MEDS ORDERED: MELATONIN 3 MG TAB PO PRN (17:30)
[2025-01-17] MEDS ORDERED: ACETAMINOPHEN 325 MG TAB PO PRN (17:30)
[2025-01-17] MEDS ORDERED: DORZOLAMIDE HCL 2% OPH SOLN 10 ML BTL OP PRN (17:30)
[2025-01-17] MEDS ORDERED: MoRPHine SULFATE 4 MG/ML 1 ML CARP\\VIAL IV PRN (17:30)
[2025-01-17] MEDS ORDERED: ALUMINUM/MAGNESIUM SUSP 30 ML UDC PO PRN (17:30)
[2025-01-17] MEDS ORDERED: RIZATRIPTAN BENZOATE 10 MG TAB PO PRN (17:57)
[2025-01-17] MEDS: TRIAMTERENE/HCTZ 37.5/25MG TAB PO STA (18:09)
[2025-01-17] MEDS: PANTOprazole 40 MG/10 ML SYR IV ONE (19:10)
[2025-01-17] MEDS: SUCRALFATE 1 GM TAB PO ONE (19:59)
[2025-01-18] MEDS: ESCITALOPRAM OXALATE 20 MG TAB PO SCH (08:02)
[2025-01-18] MEDS: METOPROLOL SUCC 25MG EXT REL TAB PO SCH (08:02)
[2025-01-18] MEDS: MESALAMINE 800 MG TABCR PO SCH (08:05)
[2025-01-18 08:35] VITALS: PULSE 64; RESP 17; TEMP 98.2; O2SAT 95
[2025-01-18] MEDS ORDERED: TRIAMTERENE/HCTZ 37.5/25MG TAB PO SCH (09:00)
--- NOTE | 2025-01-18 09:30 | Discharge Summary ---
Discharge Summary Date of Service January 18, 2025 Principal Dx & Hospital Course #1 = Principal Diagnosis (1) Chest pain: (2) Uncontrolled hypertension: Plan This patient is a 69-year-old female who presented on 01/17 for intermittent chest pain x 5 days [employer]. The pain radiates to her shoulders and back bilaterally. Day of discharge 01/18: VSS Patient reports she had no recurrence of chest pain after receiving remedies last night. She rates her epigastric/chest pain 0 out of 10 this morning. She had difficulty sleeping in the hospital, but reports she has been eating well this morning (scaled eggs, wheat toast, OJ, coffee). Her only complaint was that she had to "pee all night" after being given HCTZ, but she reports she no longer feels "discombobulated" with a headache like she did when she first came into the hospital. Patient feels much better than she did yesterday. She is eager to return home today if possible. She was counseled on the importance of avoiding NSAIDs and limiting alcohol/caffeine, which can lead to gastritis and peptic ulcers. Patient denies ever having an EGD done in the past. ROS: Patient endorses occasional dizziness (which patient does attribute to vertigo), and episodes of bilateral tinnitus (chronic) Patient denies fever, chest pain, chest palpitations, SOB, pleuritic CP, cough, nausea, abdominal pain, diarrhea, numbness or tingling in the arms or legs, or or changes in urinary/bowel habits. #Chest/epigastric pain | ? Peptic ulcer Troponin WNL x 2 EKG without acute ischemic changes appreciated Lyme negative D-dimer negative Chest CTA negative for aortic dissection Suspect that patient's chest pain is likely GERD or a peptic ulcer in the setting of chronic/recent ibuprofen and diclofenac use for her arthritis Patient reports using a Profen 20 mg x 4 tablets BID, and rotates in diclofenac PRN for chronic pain Patient reports full resolution of her chest/epigastric pain after receiving the following remedies in the hospital: Protonix 40 mg IV Sucralfate 1 g p.o. Will plan to discharge patient on Protonix 40 mg p.o. daily Recommend GI follow-up if recurrence of pain #Uncontrolled HTN Suspect uncontrolled hypertension was also contributing to her symptoms (headache, chest pain, lightheadedness, episodes of diaphoresis) Reviewed most recent cardiology note from July 2024, which did make mention of uncontrolled HTN Continue metoprolol 25 mg p.o. daily Patient's blood pressure was well-controlled after starting triamterene-HCTZ 37.5/25 p.o. x 1 Peak of 206/83 -> 107/62 at time of discharge Would caution titrating beta-abhijit dosage; patient was regularly bradycardic at <60bpm in the hospital We will plan to discharge patient on triamtereneHCTZ 37.5/25 p.o. every other day Recommended that patient monitor blood pressure twice daily as an outpatient #Chest palpitations Patient reports episodes of intermittent chest palpitations overnight Denies history of atrial fibrillation or cardiac arrhythmias Discussed with telemetry monitoring No events overnight; patient remained in sinus rhythm with first-degree block at 60 bpm #H/o Takotsubo's cardiomyopathy Noted; MA and hospitalization October 2021 Last echocardiogram 10/24/2021 revealed LVEF at 60 to 65% and a small area of apical hypokinesis If patient is refractory to the above treatments, will plan to repeat echocardiogram Disposition: Discharge home Notes For Next Care Provider Patient was hospitalized from 01/17 to 01/18 for chest/epigastric pain x 5 days. Troponin WNL x 2. No ischemic changes on EKG. Chest CTA negative for acute aortic dissection. It is suspected that most of her symptoms are due to (1) uncontrolled hypertension, and (2) either gastritis or peptic ulcer from NSAID use. Patient was reported taking ibuprofen 200 mg p.o. x 4 tablets BID and rotating and diclofenac as needed for her chronic pain related to arthritis. Patient had full resolution of her symptoms after receiving Protonix and sucralfate in the hospital. New prescriptions on discharge: - Pantoprazole 40 mg p.o. daily - Triamterene-HCTZ 37.5/25 p.o. every other day Please continue to adjust BP medications as an outpatient. If patient does have persistent epigastric pain, would recommend GI follow-up to assess for peptic ulcer. Admission HPI Per Admitting Provider Mrs. Berry is a 69-year-old female with PMH of HTN, Takotsubo cardiomyopathy, ulcerative colitis, depression, anxiety, and bilateral mastectomy. She presented on 01/17 for intermittent, substernal chest pain x 5 days [employer]. She was originally seen in the emergency department on 01/14 for constant chest pain and headache, with associated lightheadedness, SOB, and diaphoresis. The pain is substernal bilaterally and radiates to her shoulders bilaterally as well as her mid to lower back. While the pain was constant on (lasting hours), she does report that it has been more intermittent today. She rates the pain as a 6 out of 10 at present. She reports that laying on her back does improve the pain. She also reports that over the past several days, her stomach is gotten more upset after meals. Patient has been taking ibuprofen at home for the pain, but this has not been helping. She takes 4 tablets x 200 mg BID. She rotates and diclofenac tablets as needed for the pain. Her reports that she is also been taking this over the past several weeks for her back pain. No prior history of peptic ulcers to her knowledge. No recent change in diet; has been eating corn, squash, chicken, and hamburgers over the past week. No prior history of issues with her gallbladder. No sick contacts. However she has had a dry cough over the past week. Additionally, patient reports that her blood pressure has been elevated since . She takes her blood pressure at home twice daily with her home cuff, and usually it is 130/60. However, the systolic has been >150 since , and today it was elevated at 179/92 in her PCPs office, which was the reason she came in. Patient took her regular morning medication today, including her metoprolol 25 mg which she takes daily. She denies any recent change in medications. She does note that during her last cardiology appointment in July, there were discussions about her starting on triamtereneHCTZ, but she has not been taking it. She denies prior history of atrial fibrillation or cardiac arrhythmias. No PMH of DVT/PE or strokes.. No submental oxygen at baseline or CPAP at night. She denies smoking, or chewing tobacco. She does use alcohol on occasion, with last alcohol being last week. Patient is mildly hypertensive at 165/79 at time of admission; vitals otherwise stable. ED course: Acetaminophen 1000 mg IV ROS: Patient endorses lightheadedness/dizziness at rest, headache (note: patient does have history of migraines), chest pain, pleuritic CP, dry cough, intermittent SOB at rest and with exertion, chest palpitations (last night while laying in bed), abdominal discomfort, nausea, and diarrhea. Patient denies fever, night-sweats, no changes in vision, slurred speech, facial droop, unilateral deficits, vomiting, blood in the stool/urine, melena, burning with urination, dysuria, or numbness/tingling in the arms or legs. Admission Exam Per Admitting Provider General: no acute distress; pleasant affect; anxious; at bedside; non- toxic appearing; cooperative; SpO2 98% on RA HEENT: normocephalic, atraumatic; no scleral icterus; PERRLA w/ EOMs intact; vision and hearing grossly intact Neck: supple; trachea midline; shrugging shoulders against resistance does not elicit pain Skin: warm, dry without signs of tenting; no cyanosis; no rashes, bruising, lesions, or erythema noted CV: chest wall is mildly TTP substernally (she describes it as "discomfort" with palpation); RRR; leaning forward does not reproduce the pain; pulses intact and symmetric at radial, DP, and PT Lungs: no acute respiratory distress; symmetrical chest wall expansion; clear breath sounds across all lung hanley w/o adventitious sounds; no wheezing ABD: Soft, NTP; BS present; no rebound/guarding; no distention Back: Upper spine NTP; lower spine NTP; no rashes or bruising appreciated in the abdomen or flank bilaterally MSK: no tics or fasciculations; no edema noted in the LEs b/l, nonerythematous; 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 Neuro: A&Ox3; normal mood and affect; fluent speech; no focal deficits; patient reports sensation is intact and symmetric in the upper and lower extremities bilaterally assessed via light touch Discharge Exam General: no acute distress; pleasant affect; sitting upright in bed eating her breakfast; cooperative; SpO2 95% on RA HEENT: normocephalic, atraumatic; vision and hearing grossly intact Neck: supple; trachea midline Skin: warm, dry without signs of tenting; no cyanosis; no rashes, bruising, lesions, or erythema noted CV: chest wall is NTP; RRR; pulses intact and symmetric at radial, DP, and PT Lungs: no acute respiratory distress; symmetrical chest wall expansion; clear breath sounds across all lung hanley w/o adventitious sounds; no wheezing ABD: Soft, NTP; BS present; no rebound/guarding; no distention Back: Upper spine NTP; lower spine NTP; no rashes or bruising appreciated in the abdomen or flank bilaterally MSK: no tics or fasciculations; no edema noted in the LEs b/l, nonerythematous; 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 Neuro: A&Ox3; normal mood and affect; fluent speech; no focal deficits; patient reports sensation is intact and symmetric in the upper and lower extremities bilaterally assessed via light touch Discharge Plan Discharge Items Patient Disposition: Home - Self-Care Reason For Visit: CHEST PAIN Discharge Diagnosis: Uncontrolled hypertension, GERD Condition on Discharge: Fair Activity: Resume your previous activity Non-emergency contact: Primary Care Provider Call non-emergency contact if: you have any medication questions, your symptoms worsen, your pain is not controlled, your pain is worsening and your pain is unusual for you Follow-up/Referrals: Cathie Bean MD [Primary Care Provider] - Diet: Regular Addtl Attending Provider Instructions: You were hospitalized at [facility] from 01/17 to 01/18 for intermittent chest pain x 5 days, as well as headache, lightheadedness, confusion, and back pain. On arrival, a cardiac workup was done to assess your heart, which came back negative for acute findings. Your troponin (which is a enzyme that the heart releases during times of stress) was normal. Additionally, there were no changes on your EKG, and imaging of your aorta did not reveal any acute abnormalities. Troponin WNL x 2. No ischemic changes on EKG. for this reason, it is believed that your chest pain was likely not cardiac related. It is suspected that your symptoms symptoms are due to (1) elevated blood pressure, and (2) either gastritis or a peptic ulcer caused by NSAID use. You reported taking ibuprofen 200 mg p.o. x 4 tablets twice daily and rotating and diclofenac as needed for chronic pain related to arthritis. This can lead to epigastric pain and put you at increased risk for stomach ulcers. For these reasons, we treated you with medications to help protect your stomach lining. New prescriptions on discharge: - Pantoprazole 40 mg p.o. daily (to protect your stomach lining) - Triamterene-HCTZ 37.5/25 p.o. every other day (to help control blood pressure) Please avoid taking ibuprofen or diclofenac for your arthritis. Tylenol is safe to take. It is believed that better control of your blood pressure will help reduce the number of headaches you have, however if you develop a severe headache/migraine, we recommend you take Maxalt rather than NSAIDs. Please plan to follow-up with your PCP in the next 7 to 10 days for a transitional care appointment. If your chest/epigastric pain persists, we would recommend that you follow-up with a head wrestling coach to assess for peptic ulcers. If you develop any new or worsening symptoms, such as intractable chest pain, chest pain with deep breaths, trouble breathing, severe stomach pain, black stool, bright red blood in your stool, or numbness or tingling in the shoulders going down the arms, please return to the emergency department immediately. It was a pleasure taking care of you. Please reach out with any questions or concerns. Sincerely, The Hospital medicine team at [facility] Pending Studies at Discharge: No Stand-Alone Forms: My [facility] Medications and DC Order Prescriptions: New pantoprazole 40 mg Tablet,Delayed Release (Dr/Ec) 40 mg PO QAM Qty: 30 0RF Rx Instructions: Take 1 tablet by mouth daily triamterene-hydrochlorothiazid 37.5-25 mg Tablet 1 tab PO Q48H Qty: 20 0RF Rx Instructions: Take 1 tablet by mouth every other day Continued rizatriptan [Maxalt-INDUSTRIAL MACHINE SYSTEM TECHNICIAN] 10 mg tablet,disintegrating 10 mg PO Q2H PRN (Reason: migraine headache) Qty: 30 1RF Rx Instructions: do not exceed 3 doses per 24 hrs ( VERIFIED PAT CALL 07/26/22) escitalopram oxalate 20 mg tablet 20 mg PO QAM Qty: 90 3RF metoprolol succinate 25 mg tablet extended release 24 hr 25 mg PO QAM Qty: 90 3RF meclizine 25 mg tablet 25 mg PO BID PRN (Reason: dizziness) Qty: 30 0RF dorzolamide 2 % drops 1 drp ophthalmic (eye) TID PRN (Reason: Pain) mesalamine 800 mg tablet,delayed release (DR/EC) 1,600 mg PO QAM MegaRed Advanced 6x Absorption 476-800 mg Capsule 1 cap PO QAM lidocaine 4 % adhesive patch,medicated 1 patch topical Q12H PRN (Reason: pain) Qty: 30 0RF cyclobenzaprine 5 mg tablet 5 mg PO TID PRN (Reason: muscle spasm) Qty: 20 0RF Discontinued diclofenac sodium 75 mg tablet,delayed release (DR/EC) 75 mg PO DAILY PRN (Reason: Pain) Qty: 30 2RF Discharge Orders: Discharge Order (Routine); Ordered 01/18/25 Ordered By: Alexey Garcia/Other Patient Handouts: Pantoprazole Delayed Release Oral Tablet, Triamterene/Hydrochlorothiazide Oral Tablet Admission Data Admit Date/Time: 01/17/25 16:27 Attending Provider: Gumaro Gallego Admit Provider: Gumaro Gallego Primary Care Provider: Cathie Bean Other Providers: Gumaro Gallego Hospital Stay Data Consultations 01/17/25 15:30 ED Decision to Admit Stat Diagnostic Imagining Performed 01/17/25 13:29 CT head/brain wo con Stat 01/17/25 16:39 CTA chest dissec wo/w con [CT angio chest dissec wo/w con] Urgent Discharge Instructions Given to Patient (Per Discharging Provider) You were hospitalized at [facility] from 01/17 to 01/18 for intermittent chest pain x 5 days, as well as headache, lightheadedness, confusion, and back pain. On arrival, a cardiac workup was done to assess your heart, which came back negative for acute findings. Your troponin (which is a enzyme that the heart releases during times of stress) was normal. Additionally, there were no changes on your EKG, and imaging of your aorta did not reveal any acute abnormalities. Troponin WNL x 2. No ischemic changes on EKG. for this reason, it is believed that your chest pain was likely not cardiac related. It is suspected that your symptoms symptoms are due to (1) elevated blood pressure, and (2) either gastritis or a peptic ulcer caused by NSAID use. You reported taking ibuprofen 200 mg p.o. x 4 tablets twice daily and rotating and diclofenac as needed for chronic pain related to arthritis. This can lead to epigastric pain and put you at increased risk for stomach ulcers. For these reasons, we treated you with medications to help protect your stomach lining. New prescriptions on discharge: - Pantoprazole 40 mg p.o. daily (to protect your stomach lining) - Triamterene-HCTZ 37.5/25 p.o. every other day (to help control blood pressure) Please avoid taking ibuprofen or diclofenac for your arthritis. Tylenol is safe to take. It is believed that better control of your blood pressure will help reduce the number of headaches you have, however if you develop a severe headache/migraine, we recommend you take Maxalt rather than NSAIDs. Please plan to follow-up with your PCP in the next 7 to 10 days for a transitional care appointment. If your chest/epigastric pain persists, we would recommend that you follow-up with a head wrestling coach to assess for peptic ulcers. If you develop any new or worsening symptoms, such as intractable chest pain, chest pain with deep breaths, trouble breathing, severe stomach pain, black stool, bright red blood in your stool, or numbness or tingling in the shoulders going down the arms, please return to the emergency department immediately. It was a pleasure taking care of you. Please reach out with any questions or concerns. Sincerely, The Hospital medicine team at [facility] Total Time Total Time Spent Total Time Spent (In Minutes): 25 Coding [place] [address] IN/OBS DISCH 30 MIN/LESS Patient Type Established History Comprehensive Exam Comprehensive Medical Decision Making Moderate Complexity Diagnoses Chest pain R07.9 Uncontrolled hypertension I10
[2025-01-18 09:40] VITALS: BP 135/70
--- NOTE | 2025-01-19 06:18 | Electrocardiogram Report ---
Test Reason : Blood Pressure : */* mmHG Vent. Rate : 67 BPM Atrial Rate : 67 BPM P-R Int : 196 ms QRS Dur : 78 ms QT Int : 396 ms P-R-T Axes : 52 54 54 degrees QTcB Int : 418 ms Normal sinus rhythm Normal ECG When compared with ECG of 13-Jan-2025 14:11, No significant change was found Confirmed by Jersey Russell ([id number]) on 01/19/2025 6:18:21 AM Referred By: REFERRED SELF Confirmed By: Jersey Russell
[2025-01-19] MEDS ORDERED: TRIAMTERENE/HCTZ 37.5/25MG TAB PO SCH (09:00)
== END 2025-01-18 11:40 | disposition home or self-care (01) ==
LOC: SUATTDRO → ED 11:25 → 2N 11:25